=== PATIENT | female | born 1935 | race Caucasian/White ===

== ENCOUNTER 2016-09-22 16:46 | Emergency (ER) | payer MEDICARE, OTHER ==
--- NOTE | 2016-09-22 17:52 | ER Document Report ---
ED Medical Screen (RME) - General Chief Complaint: Palpitations Stated Complaint: BLOOD PRESSURE PROBLEM Time Seen by Provider: 09/22/16 17:46 Mode of Arrival: Wheelchair Information source: Patient TRAVEL OUTSIDE OF THE [place] IN LAST 30 DAYS: No - HPI Patient complains to provider of: LEG SWELLING, CRAMPING, PALPITATIONS Onset: Yesterday Onset/Duration: Gradual Quality of pain: Dull, Fullness Severity: Moderate Associated Symptoms: Leg swelling, Weakness, Other - PALPITATIONS. denies: Chest pain Exacerbated by: Movement Relieved by: Remaining still Similar symptoms previously: No Recently seen / treated by doctor: No - Related Data Smoking: Non-smoker Frequency of alcohol use: None Drug Abuse: None Allergies/Adverse Reactions: cephalexin monohydrate [From [facility]] Allergy (Verified 09/22/16 16:58) Past Medical History - General Information source: Patient - Social History Cigarette use (# per day): No Chew tobacco use (# tins/day): No Frequency of alcohol use: None Drug Abuse: None Lives with: Family Family history: None - Past Medical History Cardiac Medical History: Reports: Hx Hypercholesterolemia, Hx Hypertension, Hx Peripheral Vascular Disease - Prior carotid endarterectomy Denies: Hx Heart Attack, Hx Heart Murmur Pulmonary Medical History: Reports: Hx Pneumonia Denies: Hx Asthma Neurological Medical History: Reports: Hx Cerebrovascular Accident. Denies: Hx Seizures Endocrine Medical History: Reports: None Renal/ Medical History: Reports: None. Denies: Hx Peritoneal Dialysis GI Medical History: Reports: None. Denies: Hx Hepatitis, Hx Hiatal Hernia, Hx Ulcer Psychiatric Medical History: Reports: None Infectious Medical History: Denies: Hx Hepatitis Past Surgical History: Reports: Hx Appendectomy, Hx Hysterectomy, Hx Tubal Ligation. Denies: Hx Mastectomy, Hx Open Heart Surgery, Hx Pacemaker - Immunizations Hx Diphtheria, Pertussis, Tetanus Vaccination: No Review of Systems - Review of Systems Constitutional: See HPI EENT: No symptoms reported Cardiovascular: See HPI Respiratory: See HPI Gastrointestinal: No symptoms reported Genitourinary: No symptoms reported Female Genitourinary: Post menopausal Musculoskeletal: No symptoms reported Skin: No symptoms reported Neurological/Psychological: No symptoms reported Physical Exam - Vital signs Vitals: Temp Pulse Resp BP Pulse Ox 98.2 F 68 16 126/52 H 97 09/22/16 16:58 09/22/16 16:58 07/16/17 16:58 09/22/16 16:58 09/22/16 16:58 Interpretation: Hypotensive. No: Tachycardic, Hypoxic, Tachypneic - General General appearance: Appears well, Alert In distress: None - Respiratory Respiratory status: No respiratory distress - Cardiovascular Rhythm: Regular - Extremities General upper extremity: Normal inspection General lower extremity: Tender - LEFT, Edema - BILAT., MORE LEFT. No: Normal inspection Course - Vital Signs Vital signs: Temp Pulse Resp BP Pulse Ox 98.2 F 68 16 126/52 H 97 09/22/16 16:58 09/22/16 16:58 09/22/16 16:58 09/22/16 16:58 09/22/16 16:58
[2016-09-22 18:12] LABS: ABSOLUTE BASOPHILS # (AUTO) 0.1 10^3/uL (0.0-0.2); ABSOLUTE EOSINOPHILS # (AUTO) 0.5 10^3/uL (0.0-0.6); ABSOLUTE MONOCYTES (AUTO) 0.7 10^3/uL (0.1-1.4); ABSOLUTE NEUT (AUTO) 6.1 10^3/uL (1.7-8.2); BASOPHILS % (AUTO) 0.7 % (0-2); EOSINOPHILS % (AUTO) 6.4 % (0-6); HEMATOCRIT 36.1 % (36.0-47.0); HEMOGLOBIN 11.5 g/dL (12.0-15.5); HGB HCT DIFFERENCE -1.6; LYMPHOCYTES % (AUTO) 11.6 % (13-45); MEAN CORPUSCULAR HEMOGLOBIN 28.6 pg (27.0-33.4); MEAN CORPUSCULAR HGB CONC 31.9 g/dL (32.0-36.0); MEAN CORPUSCULAR VOLUME 90 fl (80-97); MONOCYTES % (AUTO) 8.1 % (3-13); RED BLOOD COUNT 4.01 10^6/uL (3.72-5.28); RED CELL DISTRIBUTION WIDTH 12.8 % (11.5-14.0); SEGMENTED NEUTROPHILS % (AUTO) 73.2 % (42-78); WHITE BLOOD COUNT 8.4 10^3/uL (4.0-10.5)
[2016-09-22 18:30] LABS: ALANINE AMINOTRANSFERASE 31 U/L (9-52); ALBUMIN 3.9 g/dL (3.5-5.0); ALKALINE PHOSPHATASE 88 U/L (38-126); ANION GAP 9 (5-19); ASPARTATE AMINO TRANSFERASE 29 U/L (14-36); BILIRUBIN,DIRECT 0.2 mg/dL (0.0-0.4); BILIRUBIN,TOTAL 0.5 mg/dL (0.2-1.3); BLOOD UREA NITROGEN 22 mg/dL (7-20); CALCIUM 9.4 mg/dL (8.4-10.2); CARBON DIOXIDE 27 mmol/L (22-30); CHLORIDE 103 mmol/L (98-107); CREATINE KINASE 348 U/L (30-135); CREATININE RESULT 1.11 mg/dL (0.52-1.25); GLUCOSE 109 mg/dL (75-110); POTASSIUM 5.4 mmol/L (3.6-5.0); PROTHROMBIN TIME 12.9 SEC (11.4-15.4); SODIUM 139.4 mmol/L (137-145)
[2016-09-22 18:42] LABS: CREATINE KINASE MB 2.25 ng/mL (<4.55); TROPONIN I 0.021 ng/mL
--- NOTE | 2016-09-22 18:42 | ER Document Report ---
ED General - General Chief Complaint: Palpitations Stated Complaint: BLOOD PRESSURE PROBLEM Time Seen by Provider: 09/22/16 17:46 Mode of Arrival: Wheelchair Notes: Patient is an 81-year-old female presents with multiple concerns. She complains of a chronic concern of diffuse muscle spasm slightly worse today although not present at this time. Does describe it is impacting all areas of her extremities as being a cramping, moderate to severe pain. Nothing improves or worsens his pain. She has not seen a primary care doctor regarding that concern. She also reports 2 days of left foot and distal left lower extremity pain and swelling. No history of DVT or pulmonary embolus. Touching area or walking on it worsens the pain. Nothing improves the pain. She also notes that her palpitations possibly 30 minutes prior to arrival has since resolved. She denies any associated chest pain or shortness of breath. Denies any pleuritic pain. TRAVEL OUTSIDE OF THE [place] IN LAST 30 DAYS: No - Related Data Allergies/Adverse Reactions: No Known Allergies Allergy (Unverified 09/22/16 21:46) Past Medical History - General Information source: Patient - Social History Smoking Status: Never Smoker Cigarette use (# per day): No Chew tobacco use (# tins/day): No Frequency of alcohol use: None Drug Abuse: None Lives with: Family Family History: CAD - Past Medical History Cardiac Medical History: Reports: Hx Hypercholesterolemia, Hx Hypertension, Hx Peripheral Vascular Disease - Prior carotid endarterectomy Denies: Hx Heart Attack, Hx Heart Murmur Pulmonary Medical History: Reports: Hx Pneumonia Denies: Hx Asthma Neurological Medical History: Reports: Hx Cerebrovascular Accident. Denies: Hx Seizures Endocrine Medical History: Reports: None Renal/ Medical History: Reports: None. Denies: Hx Peritoneal Dialysis GI Medical History: Reports: None. Denies: Hx Hepatitis, Hx Hiatal Hernia, Hx Ulcer Psychiatric Medical History: Reports: None Infectious Medical History: Denies: Hx Hepatitis Past Surgical History: Reports: Hx Appendectomy, Hx Hysterectomy, Hx Tubal Ligation. Denies: Hx Mastectomy, Hx Open Heart Surgery, Hx Pacemaker - Immunizations Hx Diphtheria, Pertussis, Tetanus Vaccination: No Review of Systems - Review of Systems Notes: Constitutional: Negative for fever. HENT: Negative for sore throat. Eyes: Negative for visual changes. Cardiovascular: Negative for chest pain. Positive for palpitations now resolved Respiratory: Negative for shortness of breath. Gastrointestinal: Negative for abdominal pain, vomiting or diarrhea. Genitourinary: Negative for dysuria. Musculoskeletal: Positive for left foot pain Skin: Negative for rash. Neurological: Negative for headaches, weakness or numbness. 10 point ROS negative except as marked above and in HPI. Physical Exam - Vital signs Vitals: Temp Pulse Resp BP Pulse Ox 98.2 F 68 16 126/52 H 97 09/22/16 16:58 09/22/16 16:58 09/22/16 16:58 09/22/16 16:58 09/22/16 16:58 Interpretation: Normal Notes: PHYSICAL EXAMINATION: GENERAL: Well-appearing, well-nourished and in no acute distress. HEAD: Atraumatic, normocephalic. EYES: Pupils equal round and reactive to light, extraocular movements intact, sclera anicteric, conjunctiva are normal. ENT: nares patent, oropharynx clear without exudates. Moist mucous membranes. NECK: Normal range of motion, supple without lymphadenopathy LUNGS: Breath sounds clear to auscultation bilaterally and equal. No wheezes rales or rhonchi. HEART: Regular rate and rhythm, 4/6 systolic ejection murmur ABDOMEN: Soft, nontender, normoactive bowel sounds. No guarding, no rebound. No masses appreciated. EXTREMITIES: Normal range of motion, mild swelling and edema to the left dorsal foot with associated erythema extending to the distal one fourth of the tibial surface NEUROLOGICAL: No focal neurological deficits. Moves all extremities spontaneously and on command. PSYCH: Normal mood, normal affect. SKIN: Warm, Dry, normal turgor, no rashes or lesions noted. Course - Re-evaluation Re-evalutation: 09/22/16 18:38 Patient presents with multiple complaints: 1. An episode of palpitations: Patient reports an episode of palpitations approximately 45 minutes prior to arrival. At that time her daughter did take a set of vitals and the heart rate was noted to be 75 making a ventricular tachycardia, atrial fibrillation with rapid ventricular response, supraventricular tachycardia highly improbable. It is possible the patient had a sensation of palpitations without actually having a tachycardia. It is also possible that she had an episode of atrial fibrillation without associated tachycardia. Her EKG however is completely normal. She denies any associated chest pain or shortness of breath and a troponin is unremarkable. I do not believe that this episode of palpitations requires any further workup at this time given his nonspecific nature and absence of symptoms at this time. 2.Left lower extremity pain and swelling: Primary concern based on exam is a possible DVT as patient does have plethora, mild edema and pain primarily to the distal left lower extremity. An alternative diagnostic consideration would be a cellulitis as there is erythema overlying the tibial plateau surface and patient does have multiple scabbed areas which put her at risk for possible bacterial infiltration of subcutaneous tissue. Will obtain a venous Doppler study and if this is unremarkable plan to treat empirically as a cellulitis. 3. Muscle spasms: These have been chronic for the past several years but mildly worse today. Patient did not have any of these symptoms at this time. This is a nonspecific complaint in patient's laboratories did not demonstrate any significant dehydration, hypokalemia or hypomagnesia. No evidence of rhabdomyolysis based on the normal creatinine kinase. I have encouraged her to follow-up with her primary care doctor about these recurrent spasms. 09/22/16 21:48 Venous Doppler study unremarkable without evidence of a DVT. The remainder patient's laboratories are noted to be unremarkable. She was started on cephalexin for a left lower extremity cellulitis as well as coverage of a possible urinary tract infection. Patient is comfortable with plan and states she feels much improved. At this time will discharge with return precautions and follow-up recommendations. Verbal discharge instructions given a the bedside and opportunity for questions given. Medication warnings reviewed. Patient is in agreement with this plan and has verbalized understanding of return precautions and the need for primary care follow-up in the next 24-72 hours. - Vital Signs Vital signs: Temp Pulse Resp BP Pulse Ox 98.2 F 68 17 131/55 H 96 09/22/16 16:58 09/22/16 16:58 09/22/16 22:01 09/22/16 22:01 09/22/16 22:01 - Laboratory Result Diagrams: 09/22/16 17:50 09/22/16 17:50 Laboratory results interpreted by me: 09/22/16 09/22/16 09/22/16 17:50 17:50 17:50 Hgb 11.5 L MCHC 31.9 L Lymphocytes % 11.6 L Eosinophils % 6.4 H Potassium 5.4 H BUN 22 H Est GFR ( Amer) 57 L Est GFR (Non-Af Amer) 47 L Magnesium 2.5 H Creatine Kinase 348 H Urine Protein Ur Leukocyte Esterase 09/22/16 19:17 Hgb MCHC Lymphocytes % Eosinophils % Potassium BUN Est GFR ( Amer) Est GFR (Non-Af Amer) Magnesium Creatine Kinase Urine Protein 30 H Ur Leukocyte Esterase MODERATE H - Diagnostic Test Radiology reviewed: Reports reviewed - EKG Interpretation by Me Additional EKG results interpreted by me: 09/22/16 18:42 Normal sinus rhythm. Rate 70. No ST elevations or depressions. QTC is 458. Discharge - Discharge Clinical Impression: Palpitations, Left leg cellulitis Condition: Good Disposition: HOME, SELF-CARE Additional Instructions: The rash is likely due to infection of your skin. You need to take the antibiotics as prescribed. Do not stop even if the rash goes away until you have completed all the antibiotics. The area of redness was traced out here in the emergency department with a marking pen. You need to return to emergency department if the redness spreads outside of this area by more than 2 cm in any direction. You should also return if you develop fevers with temperature greater than 101, persistent vomiting, worsening pain, or have any other symptoms that are concerning to you. Prescriptions: Cephalexin Monohydrate [Keflex 500 mg Capsule] 500 mg PO QID #28 capsule Referrals: CHARBEL CAMACHO MD [Primary Care Provider] - Follow up in 3-5 days
[2016-09-22 18:47] LABS: ADD ON TESTING BLD IN LAB ACKNOWLEDGE
[2016-09-22 19:03] LABS: MAGNESIUM 2.5 mg/dL (1.6-2.3)
[2016-09-22 19:31] LABS: APPEARANCE,URINE CLEAR; BILIRUBIN,URINE NEGATIVE (NEGATIVE); GLUCOSE, URINE NEGATIVE (NEGATIVE); KETONES,URINE NEGATIVE (NEGATIVE); LEUKOCYTE ESTERASE,URINE MODERATE (NEGATIVE); NITRITE,URINE NEGATIVE (NEGATIVE); PROTEIN,URINE 30 mg/dL (NEGATIVE); UROBILINOGEN,URINE NEGATIVE mg/dL (<2.0)
[2016-09-22] MEDS ORDERED: NITROFURANTOIN MONOHYD/M-CRYST 100 MG CAPSULE PO ONE (20:18)
[2016-09-22] MEDS ORDERED: CEPHALEXIN 500 MG CAPSULE PO ONE (21:47)
--- NOTE | 2016-09-22 21:53 | EKG REPORT ---
SEVERITY:- ABNORMAL ECG - SINUS RHYTHM PROBABLE ANTEROSEPTAL INFARCT, OLD : Confirmed by: Carlos Enrique Maldonado MD 22-Sep-2016 21:53:11
[2016-09-22 22:09] VITALS: BP 131/55
--- NOTE | 2016-09-23 15:43 | XCELERA REPORT ---
[address] [address] Lower Extremity Venous Evaluation Name: LOUANN ROACH Age: 81 yrs Gender: Female : 1935 Patient Status: Emergency Patient Location: ER Study Date: 09/22/2016 08:28 PM Procedure: Color flow and duplex imaging bilaterally of the veins of the lower extremities as well as the Common Femoral veins. Reason For Study: LEG EDEMA, PALPITATIONS, CRAMPING Ordering Physician: FRANKY GRIFFITH Performed By: Juan Zeng Right Sided Venous Evaluation Normal vessel filling wall to wall, compression and augmentation as well as Colour flow down to the infrageniculate veins. Left Sided Venous Evaluation Normal vessel filling wall to wall, compression and augmentation as well as Colour flow down to the infrageniculate veins. Interpretation Summary No duplex evidence of DVT or obstruction in the bilateral lower extremities. : FRANKY GRIFFITH [place]
== END 2016-09-22 22:16 | disposition home or self-care (01) ==
LOC: ER 16:46
DX: R00.2 Palpitations (principal); L03.116 Cellulitis of left lower limb; M62.838 Other muscle spasm
CPT/HCPCS: 93005; 99285; 36415; 87086; 82553; 82550; 83735; 85025; 85610; 87088; 80053; 81001; 84484; 93970 ×2; 93010; A9270 ×2; J8499

== ENCOUNTER 2017-03-15 19:10 | Inpatient (IN) | payer MEDICARE, OTHER ==
--- NOTE | 2017-03-15 19:32 | ER Document Report ---
ED Medical Screen (RME) - General Chief Complaint: Altered Mental Status Stated Complaint: URINARY PROBLEMS Time Seen by Provider: 03/15/17 19:22 Notes: This letter has power of attorney law clerk over this demented lady who does live by herself. Daughter reports that she had trouble getting in touch with her on , called a neighbor to check in on her. She was found to be a little more confused than normal. The daughter drove up from [place] where she found the patient with a low-grade temperature and gave her Tylenol. She also reported the patient was breathing through her mouth probably due to nasal congestion. She did seem more disoriented than usual. The orientation tends to come and go. She also seemed to have vision loss or does not recognize people who are in front of her and that also seems to come and go. The daughter decided today to bring her to the emergency room due to the ongoing symptoms. The patient is alert, oriented to person and family. She does seem a little confused and repeatedly says that she is 36 and wants to know if I am that old. Then she will laugh about this. Daughter reports that this is not normal for her, that she is normally able to live by herself and take care of herself reasonably well. I have greeted and performed a rapid initial assessment of this patient. A comprehensive ED assessment and evaluation of the patient, analysis of test results and completion of the medical decision making process will be conducted by additional ED providers. TRAVEL OUTSIDE OF THE [place] IN LAST 30 DAYS: No - Related Data Allergies/Adverse Reactions: No Known Allergies Allergy (Verified 03/15/17 19:11) Past Medical History - Social History Family history: None - Past Medical History Cardiac Medical History: Reports: Hx Hypercholesterolemia, Hx Hypertension, Hx Peripheral Vascular Disease - Prior carotid endarterectomy Denies: Hx Heart Attack, Hx Heart Murmur Pulmonary Medical History: Reports: Hx Pneumonia Denies: Hx Asthma Neurological Medical History: Reports: Hx Cerebrovascular Accident. Denies: Hx Seizures Renal/ Medical History: Denies: Hx Peritoneal Dialysis GI Medical History: Denies: Hx Hepatitis, Hx Hiatal Hernia, Hx Ulcer Infectious Medical History: Denies: Hx Hepatitis Past Surgical History: Reports: Hx Appendectomy, Hx Hysterectomy, Hx Tubal Ligation. Denies: Hx Mastectomy, Hx Open Heart Surgery, Hx Pacemaker - Immunizations Hx Diphtheria, Pertussis, Tetanus Vaccination: No
[2017-03-15 20:15] LABS: ABSOLUTE BASOPHILS # (AUTO) 0.1 10^3/uL (0.0-0.2); ABSOLUTE EOSINOPHILS # (AUTO) 0.7 10^3/uL (0.0-0.6); ABSOLUTE LYMPHOCYTES (AUTO) 1.3 10^3/uL (0.5-4.7); ABSOLUTE MONOCYTES (AUTO) 0.6 10^3/uL (0.1-1.4); ABSOLUTE NEUT (AUTO) 4.7 10^3/uL (1.7-8.2); BASOPHILS % (AUTO) 0.9 % (0-2); HEMATOCRIT 37.2 % (36.0-47.0); HEMOGLOBIN 12.5 g/dL (12.0-15.5); MEAN CORPUSCULAR HEMOGLOBIN 29.5 pg (27.0-33.4); MEAN CORPUSCULAR HGB CONC 33.5 g/dL (32.0-36.0); MEAN CORPUSCULAR VOLUME 88 fl (80-97); MONOCYTES % (AUTO) 8.3 % (3-13); PLATELET COUNT 216 10^3/uL (150-450); RED BLOOD COUNT 4.22 10^6/uL (3.72-5.28); RED CELL DISTRIBUTION WIDTH 12.6 % (11.5-14.0); SEGMENTED NEUTROPHILS % (AUTO) 63.8 % (42-78); TOTAL CELLS COUNTED % (AUTO) 100 %; WHITE BLOOD COUNT 7.3 10^3/uL (4.0-10.5)
[2017-03-15 20:36] LABS: ALANINE AMINOTRANSFERASE 23 U/L (9-52); ALBUMIN 4.7 g/dL (3.5-5.0); ALKALINE PHOSPHATASE 85 U/L (38-126); ANION GAP 12 (5-19); ASPARTATE AMINO TRANSFERASE 22 U/L (14-36); BILIRUBIN,DIRECT 0.2 mg/dL (0.0-0.4); BILIRUBIN,TOTAL 0.3 mg/dL (0.2-1.3); BLOOD UREA NITROGEN 22 mg/dL (7-20); CALCIUM 9.6 mg/dL (8.4-10.2); CARBON DIOXIDE 28 mmol/L (22-30); CHLORIDE 102 mmol/L (98-107); GLUCOSE 117 mg/dL (75-110); POTASSIUM 4.3 mmol/L (3.6-5.0); SODIUM 142.4 mmol/L (137-145); TOTAL PROTEIN 7.7 g/dL (6.3-8.2)
--- NOTE | 2017-03-15 20:39 | ER Document Report ---
ED General - General Chief Complaint: Altered Mental Status Stated Complaint: URINARY PROBLEMS Time Seen by Provider: 03/15/17 19:22 Notes: Patient is an 81-year-old female who comes emergency department for chief complaint of increased confusion for the past 3-4 days, daughter is a patient and states that patient has had more disorientation than usual, seems to come and go but is much worse than usual. She states that she had a temperature of 99.8 and give her Tylenol a couple of days ago, she has had some mild nasal congestion, she also seemed to either have trouble seeing or trouble recognizing people. Daughter states she ran into a few de leon while walking. Patient has also been repeating bizarre statements over and over. No vomiting, patient still eating and drinking, she is still take her medications. Patient normally lives by herself. Past medical history of hypertension, hyperlipidemia , TIA, hysterectomy, appendectomy, on full aspirin daily. TRAVEL OUTSIDE OF THE [place] IN LAST 30 DAYS: No - Related Data Allergies/Adverse Reactions: No Known Allergies Allergy (Verified 03/15/17 19:11) Home Medications: Current Home Medications Donepezil HCl 5 mg PO DAILY 03/16/17 [History] Mecobal/Levomefolat Ca/B6 Phos [l-[id number] Tablet] 1 each PO DAILY [History] Nifedipine [Nifedipine ER] 30 mg PO DAILY 03/16/17 [History] Quetiapine Fumarate 25 mg PO QHS 03/16/17 [History] Past Medical History - General Information source: Patient - Social History Smoking Status: Never Smoker Chew tobacco use (# tins/day): No Frequency of alcohol use: None Drug Abuse: None Lives with: Family Family History: CAD Patient has suicidal ideation: No Patient has homicidal ideation: No - Past Medical History Cardiac Medical History: Reports: Hx Hypercholesterolemia, Hx Hypertension, Hx Peripheral Vascular Disease - Prior carotid endarterectomy Denies: Hx Heart Attack, Hx Heart Murmur Pulmonary Medical History: Reports: Hx Pneumonia Denies: Hx Asthma Neurological Medical History: Reports: Hx Cerebrovascular Accident. Denies: Hx Seizures Renal/ Medical History: Denies: Hx Peritoneal Dialysis GI Medical History: Denies: Hx Hepatitis, Hx Hiatal Hernia, Hx Ulcer Infectious Medical History: Denies: Hx Hepatitis Past Surgical History: Reports: Hx Appendectomy, Hx Hysterectomy, Hx Tubal Ligation. Denies: Hx Mastectomy, Hx Open Heart Surgery, Hx Pacemaker - Immunizations Hx Diphtheria, Pertussis, Tetanus Vaccination: No Review of Systems - Review of Systems Constitutional: No symptoms reported EENT: No symptoms reported Cardiovascular: No symptoms reported Respiratory: No symptoms reported Gastrointestinal: No symptoms reported Genitourinary: No symptoms reported Female Genitourinary: No symptoms reported Musculoskeletal: No symptoms reported Skin: No symptoms reported Hematologic/Lymphatic: No symptoms reported Neurological/Psychological: See HPI Physical Exam - Vital signs Vitals: Temp Pulse Resp BP Pulse Ox 98.1 F 71 16 194/61 H 99 03/15/17 19:20 03/15/17 19:20 03/15/17 19:20 03/15/17 19:20 03/15/17 19:20 Interpretation: Normal - General General appearance: Appears well, Alert In distress: None - Smiling, alert, well-appearing - HEENT Head: Normocephalic, Atraumatic Eyes: Normal Conjunctiva: Normal Extraocular movements intact: Yes Eyelashes: Normal Pupils: PERRL - Respiratory Respiratory status: No respiratory distress Chest status: Nontender Breath sounds: Normal. No: Decreased air movement, Wheezing Chest palpation: Normal - Cardiovascular Rhythm: Regular Heart sounds: Normal auscultation Murmur: No - Abdominal Inspection: Normal Distension: No distension Bowel sounds: Normal Tenderness: Nontender. No: Tender Organomegaly: No organomegaly - Back Back: Normal, Nontender - Extremities General upper extremity: Normal inspection, Nontender, Normal color, Normal ROM , Normal temperature General lower extremity: Normal inspection, Nontender, Normal color, Normal ROM , Normal temperature, Normal weight bearing. No: Cynthia's sign - Neurological Neuro grossly intact: Yes Cognition: Confused - Cooperative with instructions but confused about history or symptoms Orientation: Disoriented to place, Disoriented to time, Disoriented to events. No: Disoriented to person [place] Coma Scale Eye Opening: Spontaneous Jessica Coma Scale Verbal: Confused [place] Coma Scale Motor: Obeys Commands Jessica Coma Scale Total: 14 Speech: Normal. No: Dysarthria, Expressive aphasia Cranial nerves: Normal. No: Facial palsy, Forehead sparing Cerebellar coordination: No: Gait ataxia Motor strength normal: LUE, RUE, LLE, RLE Sensory: Normal - Psychological Associated symptoms: Normal affect, Normal mood - Skin Skin Temperature: Warm Skin Moisture: Dry Skin Color: Normal Course - Re-evaluation Re-evalutation: Patient performs normal EOMs, normal strength bilaterally, no obvious neurological deficits other than acting confused. Patient slightly uncooperative and appears nervous that we will find something wrong with her. She denies any visual deficits. When asked if she can see in different quadrants she repeats "I can see you, I can see you, I can see you". She does keep telling me she is a 3 x 7. CBC, chemistry, urinalysis are all unremarkable. CAT scan of the head performed, shows subacute occipital ischemic stroke. This does match patient's difficulty seeing, running into de leon, etc. EKG showing sinus rhythm with no T-wave inversions or ST segment changes in consecutive leads. Left axis deviation. Chest x-ray and remaining workup generally unremarkable. Discussed with family, will discuss for admission because of stroke to risk stratify and further evaluate. Family and patient state full agreement with this plan. Discussed with Dr. Maurer, internal medicine, he will admit to [facility]. - Vital Signs Vital signs: Temp Pulse Resp BP Pulse Ox 98.5 F 64 20 146/54 H 93 03/16/17 05:04 03/16/17 05:04 03/16/17 05:04 03/16/17 05:04 03/16/17 05:04 - Laboratory Result Diagrams: 03/15/17 20:02 03/15/17 20:02 Laboratory results interpreted by me: 03/15/17 03/15/17 20:02 20:02 Eosinophils % 9.0 H Absolute Eosinophils 0.7 H BUN 22 H Glucose 117 H Discharge - Discharge Clinical Impression: Visual field defects, Confusion CVA (cerebral vascular accident) Qualifiers: CVA mechanism: unspecified Qualified Code(s): I63.9 - Cerebral infarction, unspecified Condition: Stable Disposition: ADMITTED INPATIENT Admitting Provider: Hospitalist Unit Admitted: [facility]
--- NOTE | 2017-03-15 21:03 | RADIOLOGY REPORT (SQ) ---
EXAM DESCRIPTION: CT HEAD WITHOUT COMPLETED DATE/TIME: 03/15/2017 8:46 pm REASON FOR STUDY: confusion, hypertension COMPARISON: 01/14/2016 TECHNIQUE: Axial images acquired through the brain without intravenous contrast. Images reviewed wi th bone, brain and subdural windows. Images stored on PACS. All CT scanners at this facility use dose modulation, iterative reconstruction, and/or weight based d osing when appropriate to reduce radiation dose to as low as reasonably achievable (ALARA). [facility]: Dose Right [facility]: CareDose [facility]: Dose Right [facility]: Teradose 4D [facility]: [employer] RADIATION DOSE: CT Rad equipment meets quality standard of care and radiation dose reduction techniq ues were employed. CTDIvol: 64.6 mGy. DLP: 1163 mGy-cm. mGy. LIMITATIONS: None. FINDINGS: VENTRICLES: Prominent. CEREBRUM: New geographic focus of white matter edema involving the left occipital lobe. Mild mass ef fect upon the adjacent left lateral ventricle occipital horn and left occipital penaloza matter. No mass es. No hemorrhage. No midline shift. Background of low density foci throughout the white matter mo st likely due to chronic micro-vascular ischemic change. CEREBELLUM: No masses. No hemorrhage. No alteration of density. No evidence for acute infarction. EXTRAAXIAL SPACES: Mild age-related involutional change. No fluid collections. No masses. ORBITS AND GLOBE: No intra- or extraconal masses. Normal contour of globe without masses. CALVARIUM: No fracture. PARANASAL SINUSES: No fluid or mucosal thickening. SOFT TISSUES: No mass or hematoma. OTHER: No other significant finding. IMPRESSION: Acute versus subacute ischemic injury involving the left occipital lobe. This is seen o n a background of chronic microvascular ischemia and age-related involutional changes. EVIDENCE OF ACUTE STROKE: YES. 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 Category of Critical Result: Acute versus subacute ischemic injury TECHNICAL DOCUMENTATION: JOB ID: [id number] Quality ID # [id number]: Final reports with documentation of one or more dose reduction techniques (e.g., Au tomated exposure control, adjustment of the mA and/or kV according to patient size, use of iterative reconstruction technique) 2010 [employer]- All Rights Reserved
[2017-03-15 21:31] LABS: CREATINE KINASE MB 1.49 ng/mL (<4.55); TROPONIN I 0.015 ng/mL
[2017-03-15 21:33] LABS: APPEARANCE,URINE CLEAR; BILIRUBIN,URINE NEGATIVE (NEGATIVE); COLOR,URINE YELLOW; GLUCOSE, URINE NEGATIVE (NEGATIVE); KETONES,URINE NEGATIVE (NEGATIVE); LEUKOCYTE ESTERASE,URINE NEGATIVE (NEGATIVE); NITRITE,URINE NEGATIVE (NEGATIVE); PROTEIN,URINE NEGATIVE (NEGATIVE); URINE SPECIFIC GRAVITY 1.018; UROBILINOGEN,URINE NEGATIVE mg/dL (<2.0)
--- NOTE | 2017-03-15 22:12 | RADIOLOGY REPORT (SQ) ---
EXAM DESCRIPTION: CHEST SINGLE VIEW COMPLETED DATE/TIME: 03/15/2017 9:44 pm REASON FOR STUDY: post CVA COMPARISON: 01/14/2016 EXAM PARAMETERS: NUMBER OF VIEWS: One view. TECHNIQUE: Single frontal radiographic view of the chest acquired. RADIATION DOSE: NA LIMITATIONS: None. FINDINGS: LUNGS AND PLEURA: No opacities, masses or pneumothorax. No pleural effusion. MEDIASTINUM AND HILAR STRUCTURES: No masses. Contour normal. HEART AND VASCULAR STRUCTURES: Heart normal in size. Normal vasculature. BONES: No acute findings. HARDWARE: None in the chest. OTHER: No other significant finding. IMPRESSION: NO ACUTE RADIOGRAPHIC FINDING IN THE CHEST. TECHNICAL DOCUMENTATION: JOB ID: [id number] [employer]- All Rights Reserved
[2017-03-15] MEDS ORDERED: ATORVASTATIN CALCIUM 80 MG TABLET PO ONE (22:23)
[2017-03-16] MEDS ORDERED: INFLUENZA ADLT QUAD (36MOS+) 2017-18 VAC 0.5 ML SYR IM PRN (02:42)
[2017-03-16 02:52] LABS: CREATINE KINASE MB 1.25 ng/mL (<4.55); TROPONIN I 0.017 ng/mL
[2017-03-16 03:16] LABS: CHOLESTEROL 214.91 mg/dL (0-200); CREATINE KINASE 100 U/L (30-135); TRIGLYCERIDES 72 mg/dL (<150)
[2017-03-16 03:27] LABS: DIRECT LDL 111 mg/dL (<100)
--- NOTE | 2017-03-16 06:21 | PDOC H&P ---
History of Present Illness Admission Date/PCP: 03/15/17 23:45 CHARBEL CAMACHO MD Patient complains of: Delirium and vision change History of Present Illness: LOUANN ROACH is a 81 year old female with a past medical history of TIA, vascular and Alzheimer's dementia who presents after 3 days of difficulty with site, ambulation, exceptional confusion and delirium with delusions. Patient is socially appropriate but oriented 1 only and is accompanied by her daughter who is healthcare power of environmental science technician. In the emergency room she is found to have CT evidence of acute left CREDIT RISK ANALYST infarct with bradycardia and referred to the hospitalist for admission. Patient was noted to be on Aricept and nifedipine with a heart rate of 50-60. Past Medical History Cardiac Medical History: Reports: Hyperlipidema, Hypertension, Peripheral Vascular Disease - Prior carotid endarterectomy Denies: Myocardial Infarction, Heart Murmur Pulmonary Medical History: Reports: Pneumonia Denies: Asthma Neurological Medical History: Denies: Seizures GI Medical History: Denies: Hepatitis, Hiatal Hernia Hematology: Denies: Anemia, Sickle Cell Disease Past Surgical History Past Surgical History: Reports: Appendectomy, Hysterectomy, Tubal Ligation Denies: Amputation, Mastectomy, Pacemaker Social History Lives with: Alone Smoking Status: Never Smoker Frequency of Alcohol Use: None Hx Recreational Drug Use: No Drugs: None Hx Prescription Drug Abuse: No - Advance Directive Resuscitation Status: Full Code Family History Family History: CAD, CVA Parental Family History Reviewed: Yes Children Family History Reviewed: Yes Sibling(s) Family History Reviewed.: Yes Medication/Allergy Home Medications: Aspirin [Ecotrin 325 mg EC Tablet] 325 mg PO DAILY #30 tabec 01/15/16 Lisinopril [Prinivil] 20 mg PO DAILY #30 tablet 01/15/16 Simvastatin [Zocor 10 mg Tablet] 20 mg PO QHS #30 tablet 01/15/16 Tolterodine Tartrate [Detrol La] 4 mg PO DAILY #30 cap.sr.24h 01/15/16 Cephalexin Monohydrate [Keflex 500 mg Capsule] 500 mg PO QID #28 capsule Donepezil HCl 5 mg PO DAILY 03/16/17 Mecobal/Levomefolat Ca/B6 Phos [n-[id number]-B12 Tablet] 1 each PO DAILY Nifedipine [Nifedipine ER] 30 mg PO DAILY 03/16/17 Quetiapine Fumarate 25 mg PO QHS 03/16/17 Allergies/Adverse Reactions: No Known Allergies Allergy (Verified 03/15/17 19:11) Review of Systems Constitutional: ABSENT: chills, fever(s), headache(s), weight gain, weight loss Eyes: PRESENT: as per HPI, visual disturbances Ears: ABSENT: hearing changes Cardiovascular: ABSENT: chest pain, dyspnea on exertion, edema, orthropnea, palpitations Respiratory: ABSENT: cough, hemoptysis Gastrointestinal: ABSENT: abdominal pain, constipation, diarrhea, hematemesis, hematochezia, nausea, vomiting Genitourinary: ABSENT: dysuria, hematuria Musculoskeletal: ABSENT: joint swelling Integumentary: ABSENT: rash, wounds Neurological: PRESENT: abnormal speech, confusion, lack of coordination, memory loss. ABSENT: abnormal gait, convulsions, dizziness, focal weakness, syncope Psychiatric: PRESENT: anxiety, other - Delirium with delusions of persecution. ABSENT: depression, homidical ideation, suicidal ideation Endocrine: ABSENT: cold intolerance, heat intolerance, polydipsia, polyuria Hematologic/Lymphatic: ABSENT: easy bleeding, easy bruising Physical Exam Vital Signs: Temp Pulse Resp BP Pulse Ox 98.5 F 64 20 146/54 H 93 03/16/17 05:04 03/16/17 05:04 03/16/17 05:04 03/16/17 05:04 03/16/17 05:04 Intake & Output 03/14/17 03/15/17 03/16/17 11:59 11:59 11:59 Weight 64.7 kg General appearance: PRESENT: no acute distress, cooperative, well-developed, well-nourished Head exam: PRESENT: atraumatic, normocephalic Eye exam: PRESENT: conjunctiva pink, EOMI, PERRLA. ABSENT: scleral icterus Ear exam: PRESENT: normal external ear exam Mouth exam: PRESENT: moist, tongue midline Neck exam: ABSENT: carotid bruit, JVD, lymphadenopathy, thyromegaly Respiratory exam: PRESENT: clear to auscultation sara. ABSENT: rales, rhonchi, wheezes Cardiovascular exam: PRESENT: bradycardia, +S1, +S2, systolic murmur Pulses: PRESENT: normal dorsalis pedis pul Vascular exam: PRESENT: normal capillary refill GI/Abdominal exam: PRESENT: normal bowel sounds, soft. ABSENT: distended, guarding, mass, organolmegaly, rebound, tenderness Rectal exam: PRESENT: deferred Extremities exam: PRESENT: full ROM. ABSENT: calf tenderness, clubbing, pedal edema Neurological exam: PRESENT: alert, altered, awake, oriented to person, CN II- XII grossly intact. ABSENT: oriented to place, oriented to time, oriented to situation, normal gait Psychiatric exam: PRESENT: agitated, unusual affect Skin exam: PRESENT: dry, intact, warm. ABSENT: cyanosis, rash Results Laboratory Results: 03/16/17 02:17 Triglycerides 72 Cholesterol 214.91 H LDL Cholesterol Direct 111 H VLDL Cholesterol 14.0 HDL Cholesterol 71 03/16/17 03/16/17 02:17 02:17 Creatine Kinase 100 CK-MB (CK-2) 1.25 Troponin I 0.017 Impressions: Head CT 03/15/17 20:37 IMPRESSION: Acute versus subacute ischemic injury involving the left occipital lobe. This is seen on a background of chronic microvascular ischemia and age- related involutional changes. EVIDENCE OF ACUTE STROKE: YES. LEFT CREDIT RISK ANALYST Chest X-Ray 03/15/17 21:02 IMPRESSION: NO ACUTE RADIOGRAPHIC FINDING IN THE CHEST. Assessment & Plan - Diagnosis (1) CVA (cerebral vascular accident) Qualifiers: CVA mechanism: unspecified Qualified Code(s): I63.9 - Cerebral infarction, unspecified Is this a current diagnosis for this admission?: Yes Plan: Acute left CREDIT RISK ANALYST infarct with visual changes. CVA care set, supportive care, Lipitor and aspirin. Holding nifedipine and Aricept for bradycardia. Follow- up MRI, carotid and 2D echo (2) Sinus bradycardia Is this a current diagnosis for this admission?: Yes Plan: Concern for nifedipine and Aricept because subsequently held to need telemetry monitoring follow-up 2D echo. (3) Dementia Is this a current diagnosis for this admission?: Yes Plan: Patient clearly no longer independent in ADLs to maintain independent living. Physical therapy consult, discharge planning consulted for rehab and placement. - Time Time Spent: 50 to 70 Minutes - Inpatient Certification Medical Necessity: Need Close Monitoring Due to Risk of Patient Decompensation
[2017-03-16 09:10] LABS: CREATINE KINASE MB 0.88 ng/mL (<4.55); TROPONIN I 0.018 ng/mL
[2017-03-16] MEDS ORDERED: ASPIRIN 325 MG TABLET, ENT COATED PO SCH (10:00)
--- NOTE | 2017-03-16 10:23 | PDOC PROGRESS REPORT ---
Subjective Progress Note for:: 03/16/17 Subjective:: Patient denies any complaints. She is demented Reason For Visit: CVA HTN Physical Exam Vital Signs: Temp Pulse Resp BP Pulse Ox 98.7 F 52 L 19 148/49 H 98 03/16/17 08:37 03/16/17 08:37 03/16/17 08:37 03/16/17 08:37 03/16/17 08:37 Intake & Output 03/15/17 03/16/17 03/17/17 06:59 06:59 06:59 Intake Total 0 Output Total 500 Balance -500 Weight 64.7 kg General appearance: PRESENT: no acute distress Eye exam: PRESENT: conjunctiva pink. ABSENT: scleral icterus Mouth exam: PRESENT: moist, tongue midline Neck exam: ABSENT: JVD Respiratory exam: PRESENT: clear to auscultation sara. ABSENT: rales, rhonchi, wheezes Cardiovascular exam: PRESENT: RRR. ABSENT: diastolic murmur, rubs, systolic murmur GI/Abdominal exam: PRESENT: normal bowel sounds, soft. ABSENT: distended, guarding, mass, organolmegaly, rebound, tenderness Extremities exam: ABSENT: calf tenderness, clubbing, pedal edema Neurological exam: PRESENT: alert, awake, oriented to person, oriented to place. ABSENT: oriented to time, oriented to situation, CN II-XII grossly intact - Patient has right lower visual field loss. Psychiatric exam: PRESENT: appropriate affect Skin exam: PRESENT: dry, intact, warm. ABSENT: cyanosis, rash Results Laboratory Results: 03/16/17 02:17 Triglycerides 72 Cholesterol 214.91 H LDL Cholesterol Direct 111 H VLDL Cholesterol 14.0 HDL Cholesterol 71 03/16/17 03/16/17 03/16/17 02:17 02:17 08:03 Creatine Kinase 100 CK-MB (CK-2) 1.25 0.88 Troponin I 0.017 0.018 Impressions: Head CT 03/15/17 20:37 IMPRESSION: Acute versus subacute ischemic injury involving the left occipital lobe. This is seen on a background of chronic microvascular ischemia and age- related involutional changes. EVIDENCE OF ACUTE STROKE: YES. 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 Assessment & Plan - Diagnosis (1) Visual field defects Is this a current diagnosis for this admission?: Yes Plan: Exam on patient is difficult given her dementia and difficulty following instructions. She appears to have some right lower visual field defect. She has had an acute CVA involving the right posterior circulation. Will get an MRI to further delineate. (2) CVA (cerebral vascular accident) Qualifiers: CVA mechanism: unspecified Qualified Code(s): I63.9 - Cerebral infarction, unspecified Is this a current diagnosis for this admission?: Yes Plan: Patient has had a CVA of the posterior circulation. Will get an MRI, carotid Doppler. Will switch from aspirin to Aggrenox. (3) Hyperlipidemia Is this a current diagnosis for this admission?: Yes Plan: Zocor was switched to Lipitor. (4) Dementia Is this a current diagnosis for this admission?: Yes (5) Hypertension Is this a current diagnosis for this admission?: Yes (6) Peripheral vascular disease Is this a current diagnosis for this admission?: Yes - Time Time Spent with patient: 25-34 minutes - Inpatient Certification Medical Necessity: Need Close Monitoring Due to Risk of Patient Decompensation - Plan Summary Plan Summary: Patient will need rehab.
[2017-03-16] MEDS ORDERED: DOCUSATE SODIUM 100 MG CAPSULE ONE (17:12)
[2017-03-16] MEDS ORDERED: TOLTERODINE TARTRATE 1 MG TABLET ONE (17:13)
[2017-03-16] MEDS: DOCUSATE SODIUM 100 MG CAPSULE PO SCH ×2 (17:14→17:24)
[2017-03-16] MEDS: TOLTERODINE TARTRATE 1 MG TABLET PO SCH ×2 (17:15→20:32)
--- NOTE | 2017-03-16 17:28 | EKG REPORT ---
SEVERITY:- ABNORMAL ECG - SINUS RHYTHM LEFT VENTRICULAR HYPERTROPHY ANTERIOR Q WAVES, POSSIBLY DUE TO LVH : Confirmed by: Remberto Rodriguez 16-Mar-2017 12:12:09
--- NOTE | 2017-03-16 19:25 | RADIOLOGY REPORT (SQ) ---
EXAM DESCRIPTION: MRI HEAD WITHOUT COMPLETED DATE/TIME: 03/16/2017 7:15 pm REASON FOR STUDY: acute neurologic syndrome COMPARISON: 2016 TECHNIQUE: Multiplanar imaging includes non-contrasted T1, T2, FLAIR, and diffusion with ADC map seq uences. Heme sensitive sequence. Images stored on PACS. LIMITATIONS: None. FINDINGS: ANATOMY: No anomalies. Normal vascular flow voids. Pituitary fossa normal. CSF SPACES: Atrophy induced prominence of ventricles and CSF spaces. CEREBRUM: High signal intensity lesions scattered throughout the white matter on FLAIR imaging with d istribution suggesting micro-vascular ischemic changes. No evidence of hemorrhage, mass, or extraaxi al fluid collection. POSTERIOR FOSSA: No signal alteration. No hemorrhage. No edema, masses or mass effect. Internal jerome tory canals, cerebello-pontine angles, mastoids normal. DIFFUSION IMAGING: There is a large area of restricted diffusion in the left occipital lobe. Acute i nfarction. Additional small punctate area in the parietal white matter on the left. ORBITS: No masses. Globes normal. PARANASAL SINUSES: No fluid levels. Mucosa normal. OTHER: No other significant finding. IMPRESSION: Large area of acute infarction in the left occipital lobe with a tiny area in the left p arietal lobe. Underlying atrophy and microvascular ischemia. 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
[2017-03-16] MEDS: ASPIRIN/DIPYRIDAMOLE 25-200 MG 1 CAP.SR CPMP.12HR PO SCH (20:33)
[2017-03-16] MEDS ORDERED: QUETIAPINE FUMARATE 25 MG TABLET PO SCH (22:00)
[2017-03-16] MEDS ORDERED: ATORVASTATIN CALCIUM 80 MG TABLET PO SCH (22:00)
[2017-03-16] MEDS ORDERED: GABAPENTIN 300 MG CAPSULE PO SCH (22:00)
[2017-03-16] MEDS ORDERED: LORAZEPAM INJ 2 MG/1 ML VIAL ONE (22:06)
[2017-03-16] MEDS ORDERED: HYDRALAZINE HCL INJ/PF 20 MG/1 ML SDV ONE (22:07)
[2017-03-16] MEDS ORDERED: LORAZEPAM INJ 2 MG/1 ML VIAL IV ONE (22:15)
[2017-03-16] MEDS ORDERED: HYDRALAZINE HCL INJ/PF 20 MG/1 ML SDV IV ONE (22:15)
--- NOTE | 2017-03-16 22:35 | RADIOLOGY REPORT (SQ) ---
EXAM DESCRIPTION: CAROTID DOPPLER COMPLETED DATE/TIME: 03/16/2017 10:25 pm REASON FOR STUDY: acute neurologic syndrome COMPARISON: 01/15/2016 TECHNIQUE: Grayscale ultrasound, Doppler velocity and spectra, and color Doppler images acquired of the extra-cranial carotid and vertebral arteries. Images stored on PACS. LIMITATIONS: None. FINDINGS: RIGHT CAROTID CCA Velocities: Within normal limits. ICA Velocities Peak systolic 0.94 m/s. End diastolic 0.20 m/s. Proximal ICA/CCA peak systolic ratio 0.9. Spectra normal. No significant plaque. Patent endarterectomy. LEFT CAROTID CCA Velocities: Within normal limits. ICA Velocities Peak systolic 1.12 m/s. End diastolic 0.26 m/s. Proximal ICA/CCA peak systolic ratio 1.0. Spectra normal. No significant plaque. VERTEBRAL ARTERIES: Antegrade flow. Normal waveforms. SUBCLAVIAN ARTERIES: No finding. OTHER: No other significant finding. IMPRESSION: NO HEMODYNAMICALLY SIGNIFICANT STENOSIS. COMMENT: Quality ID #[id number]: Velocity criteria are extrapolated from the diameter data as defined by t he Society of Radiologists in Ultrasound Consensus Conference. Radiology 2003: 229; 340-346. TECHNICAL DOCUMENTATION: JOB ID: [id number] [employer]- All Rights Reserved
[2017-03-16 22:49] LABS: CREATINE KINASE MB 0.72 ng/mL (<4.55)
[2017-03-16 22:54] LABS: TROPONIN I < 0.012 ng/mL
[2017-03-17 05:18] LABS: ABSOLUTE BASOPHILS # (AUTO) 0.1 10^3/uL (0.0-0.2); ABSOLUTE EOSINOPHILS # (AUTO) 0.3 10^3/uL (0.0-0.6); ABSOLUTE LYMPHOCYTES (AUTO) 1.3 10^3/uL (0.5-4.7); ABSOLUTE MONOCYTES (AUTO) 0.6 10^3/uL (0.1-1.4); ABSOLUTE NEUT (AUTO) 4.9 10^3/uL (1.7-8.2); BASOPHILS % (AUTO) 0.7 % (0-2); EOSINOPHILS % (AUTO) 3.8 % (0-6); HEMOGLOBIN 11.2 g/dL (12.0-15.5); LYMPHOCYTES % (AUTO) 18.4 % (13-45); MEAN CORPUSCULAR HEMOGLOBIN 29.3 pg (27.0-33.4); MEAN CORPUSCULAR HGB CONC 33.9 g/dL (32.0-36.0); MEAN CORPUSCULAR VOLUME 86 fl (80-97); MONOCYTES % (AUTO) 8.8 % (3-13); PLATELET COUNT 200 10^3/uL (150-450); RED BLOOD COUNT 3.82 10^6/uL (3.72-5.28); RED CELL DISTRIBUTION WIDTH 12.6 % (11.5-14.0); SEGMENTED NEUTROPHILS % (AUTO) 68.3 % (42-78); TOTAL CELLS COUNTED % (AUTO) 100 %; WHITE BLOOD COUNT 7.2 10^3/uL (4.0-10.5)
[2017-03-17 05:43] LABS: ANION GAP 9 (5-19); BLOOD UREA NITROGEN 21 mg/dL (7-20); CALCIUM 9.3 mg/dL (8.4-10.2); CARBON DIOXIDE 26 mmol/L (22-30); CHLORIDE 104 mmol/L (98-107); GLUCOSE 111 mg/dL (75-110); POTASSIUM 4.2 mmol/L (3.6-5.0); SODIUM 139.2 mmol/L (137-145)
[2017-03-17] MEDS ORDERED: (PENDING PHARMACY ID) (Lisinopril [Prinivil] 20 MG) PO SCH (10:00)
[2017-03-17] MEDS ORDERED: MECOBAL PO SCH (10:00)
[2017-03-17] MEDS ORDERED: B6 PHOS PO SCH (10:00)
[2017-03-17] MEDS ORDERED: (PENDING PHARMACY ID) (Nifedipine [Nifedipine Er] 30 MG) PO SCH (10:00)
[2017-03-17] MEDS ORDERED: LEVOMEFOLAT CA PO SCH (10:00)
--- NOTE | 2017-03-17 11:27 | PDOC PROGRESS REPORT ---
Subjective Progress Note for:: 03/17/17 Subjective:: Patient was agitated last night. She is an 81-year-old female with a history of moderate dementia who presented with a 3 day history of worsening confusion and some visual difficulties. The patient was found to have an acute left occipital CVA. Patient's carotid Dopplers were unremarkable. The patient had been living alone prior to this presentation. The family would like her to go to rehab and possibly assisted living after that. Reason For Visit: CVA HTN Physical Exam Vital Signs: Temp Pulse Resp BP Pulse Ox 97.7 F 51 L 16 127/55 H 97 03/17/17 07:15 03/17/17 07:15 03/17/17 07:15 03/17/17 07:15 03/17/17 07:15 Intake & Output 03/16/17 03/17/17 03/18/17 06:59 06:59 06:59 Intake Total 3 5 Output Total 500 0 Balance -497 5 Weight 64.7 kg 66.1 kg General appearance: PRESENT: no acute distress Eye exam: PRESENT: conjunctiva pink. ABSENT: scleral icterus Neck exam: ABSENT: JVD Respiratory exam: PRESENT: clear to auscultation sara. ABSENT: rales, rhonchi, wheezes Cardiovascular exam: PRESENT: RRR. ABSENT: diastolic murmur, rubs, systolic murmur GI/Abdominal exam: PRESENT: normal bowel sounds, soft. ABSENT: distended, guarding, mass, organolmegaly, rebound, tenderness Extremities exam: ABSENT: calf tenderness, clubbing, pedal edema Neurological exam: PRESENT: awake, oriented to person, oriented to place, other - Patient will not cooperate for a full visual exam.. ABSENT: oriented to time , oriented to situation Psychiatric exam: PRESENT: agitated Skin exam: PRESENT: dry, intact, warm. ABSENT: cyanosis, rash Results Laboratory Results: 03/17/17 04:50 03/17/17 04:50 03/17/17 03/17/17 04:50 04:50 WBC 7.2 RBC 3.82 Hgb 11.2 L Hct 33.0 L MCV 86 MCH 29.3 MCHC 33.9 RDW 12.6 Plt Count 200 Seg Neutrophils % 68.3 Lymphocytes % 18.4 Monocytes % 8.8 Eosinophils % 3.8 Basophils % 0.7 Absolute Neutrophils 4.9 Absolute Lymphocytes 1.3 Absolute Monocytes 0.6 Absolute Eosinophils 0.3 Absolute Basophils 0.1 Sodium 139.2 Potassium 4.2 Chloride 104 Carbon Dioxide 26 Anion Gap 9 BUN 21 H Creatinine 1.01 Est GFR ( Amer) > 60 Est GFR (Non-Af Amer) 52 L Glucose 111 H Calcium 9.3 03/16/17 03/16/17 03/16/17 02:17 02:17 08:03 Creatine Kinase 100 CK-MB (CK-2) 1.25 0.88 Troponin I 0.017 0.018 03/16/17 22:00 Creatine Kinase CK-MB (CK-2) 0.72 Troponin I < 0.012 Impressions: Head CT 03/15/17 20:37 IMPRESSION: Acute versus subacute ischemic injury involving the left occipital lobe. This is seen on a background of chronic microvascular ischemia and age- related involutional changes. EVIDENCE OF ACUTE STROKE: YES. 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 Carotid Doppler Study 03/16/17 10:05 IMPRESSION: NO HEMODYNAMICALLY SIGNIFICANT STENOSIS. Head MRI 03/16/17 10:05 IMPRESSION: Large area of acute infarction in the left occipital lobe with a tiny area in the left parietal lobe. Underlying atrophy and microvascular ischemia. EVIDENCE OF ACUTE STROKE: Yes LEFT SUPERVISOR PRODUCTION Assessment & Plan - Diagnosis (1) Visual field defects Is this a current diagnosis for this admission?: Yes Plan: Exam on patient is difficult given her dementia and difficulty following instructions. She appears to have some right lower visual field defect. She has had an acute CVA involving the right posterior circulation. MRI confirms this. Carotid Dopplers were unremarkable. Will get an echocardiogram. (2) CVA (cerebral vascular accident) Qualifiers: CVA mechanism: unspecified Qualified Code(s): I63.9 - Cerebral infarction, unspecified Is this a current diagnosis for this admission?: Yes Plan: Patient has had a CVA of the posterior circulation. Will obtain echocardiogram. Patient was changed from aspirin to Aggrenox. (3) Hyperlipidemia Is this a current diagnosis for this admission?: Yes Plan: Zocor was switched to Lipitor. (4) Dementia Is this a current diagnosis for this admission?: Yes (5) Hypertension Is this a current diagnosis for this admission?: Yes (6) Peripheral vascular disease Is this a current diagnosis for this admission?: Yes - Time Time Spent with patient: 25-34 minutes - Inpatient Certification Medical Necessity: Need for Neurological Checks - Plan Summary Plan Summary: The patient's family request that she go to rehab to help her learn to deal with her visual defects and findings.
[2017-03-17] MEDS ORDERED: HALOPERIDOL 2 MG TABLET PO PRN (13:50)
[2017-03-17] MEDS: DOCUSATE SODIUM 100 MG CAPSULE PO SCH ×2 (14:08→18:26)
[2017-03-17] MEDS: TOLTERODINE TARTRATE 1 MG TABLET PO SCH ×2 (14:08→20:28)
[2017-03-17] MEDS: LISINOPRIL 10 MG TABLET PO SCH (14:08)
[2017-03-17] MEDS: NIFEDIPINE 30 MG TAB.ER.24 PO SCH (14:08)
[2017-03-17] MEDS: DONEPEZIL HCL 5 MG TABLET PO SCH (14:08)
[2017-03-17] MEDS: ASPIRIN/DIPYRIDAMOLE 25-200 MG 1 CAP.SR CPMP.12HR PO SCH ×2 (14:08→20:29)
[2017-03-17] MEDS: GABAPENTIN 300 MG CAPSULE PO SCH (20:27)
[2017-03-17] MEDS: QUETIAPINE FUMARATE 25 MG TABLET PO SCH (20:28)
[2017-03-17] MEDS: ATORVASTATIN CALCIUM 80 MG TABLET PO SCH (20:29)
[2017-03-17] MEDS ORDERED: DIAZEPAM 5 MG TABLET ONE (22:02)
--- NOTE | 2017-03-17 22:13 | XCELERA REPORT ---
[address] [address] Transthoracic Echocardiogram Report Name: LOUANN ROACH Age: 81 yrs Gender: Female : 1935 Patient Status: Inpatient Patient Location: [address] [place], [place] [address] Study Date: 03/17/2017 09:53 AM Height: 67 in Weight: 146 lb BSA: 1.8 m2 Procedure: A two-dimensional transthoracic echocardiogram with color flow and Doppler was performed. Study Quality: Fair. Reason For Study: LV Function, size, wall thickness,Valve Function / CVA History: LV Function, size, wall thickness,Valve Function / CVA. Ordering Physician: FRANKY RICE Performed By: Esperanza Mendoza Interpretation Summary There is no obvious cardiac source of embolus noted on this transthoracic echocardiogram. Follow-up with a ALBER is suggested if cardiac source is still suspected. The left ventricle is normal in size. There is normal left ventricular wall thickness. LV EF is . THAN 65% Left ventricular systolic function is normal. Doppler measurements suggest normal left ventricular diastolic function The left ventricular wall motion is normal. There is no thrombus. The right ventricle is not well visualized secondary to technical limitations The right atrium is normal. The left atrial size is normal. Calcified mitral apparatus causing mitral stenosis. There is no evidence of mitral valve prolapse. There is no aortic valvular vegetation. There is mild aortic stenosis There is a peak gradient of 27 mm of Hg. There is a mild amount of aortic regurgitation There is no tricuspid stenosis. There is a trace amount of tricuspid regurgitation Right ventricular systolic pressure is normal. rvsp IS 26 MM OF hG , WTH ra MEAN OF 5. There is no pulmonic valvular stenosis. There is a trace amount of pulmonic regurgitation There is no pericardial effusion. There is no obvious cardiac source of embolus noted on this transthoracic echocardiogram. Follow-up with a ALBER is suggested if cardiac source is still suspected MMode/2D Measurements & Calculations RVDd: 3.2 cm LVIDd: 4.1 cm FS: 47.2 % Ao root diam: 2.8 cm IVSd: 1.1 cm LVIDs: 2.2 cm EDV(Teich): 74.8 ml LVPWd: 1.1 cm ESV(Teich): 15.7 ml Ao root area: 6.2 cm2 EF(Teich): 79.0 % LA dimension: 3.9 cm LVOT diam: 2.2 cm LVOT area: 3.9 cm2 Doppler Measurements & Calculations MV E max luana: MV P1/2t max luana: Ao V2 max: AI max luana: 109.6 cm/sec 110.6 cm/sec 263.8 cm/sec 347.5 cm/sec MV A max luana: MV P1/2t: 97.8 msec Ao max PG: AI max P.7 cm/sec MVA(P1/2t): 2.2 cm2 27.9 mmHg 48.3 mmHg MV E/A: 1.1 MV dec slope: Ao V2 mean: AI dec slope: 331.1 cm/sec2 189.3 cm/sec 211.8 cm/sec2 Ao mean PG: AI P1/2t: 16.5 mmHg 480.5 msec Ao V2 VTI: 66.0 cm ZENON(I,D): 1.4 cm2 ZENON(V,D): 1.3 cm2 LV V1 max PG: SV(LVOT): 94.4 ml PA V2 max: PI end-d luana: 2.9 mmHg 89.3 cm/sec 97.7 cm/sec LV V1 mean PG: PA max P.5 mmHg 3.2 mmHg LV V1 max: 85.5 cm/sec LV V1 mean: 56.8 cm/sec LV V1 VTI: 24.0 cm LV dP/dt: 1136 mmHg/s TR max luana: 228.0 cm/sec TR max P.8 mmHg Left Ventricle The left ventricle is normal in size. There is normal left ventricular wall thickness. LV EF is . THAN 65%. Left ventricular systolic function is normal. Doppler measurements suggest normal left ventricular diastolic function. The left ventricular wall motion is normal. There is no thrombus. Right Ventricle The right ventricle is not well visualized secondary to technical limitations. Atria The right atrium is normal. The left atrial size is normal. Mitral Valve Calcified mitral apparatus causing mitral stenosis. There is no evidence of mitral valve prolapse. There is no vegetation seen on the mitral valve. There is mild mitral stenosis. There is a mild amount of mitral regurgitation. Aortic Valve There is no aortic valvular vegetation. There is mild aortic stenosis. There is a peak gradient of 27 mm of Hg. There is a mild amount of aortic regurgitation. Tricuspid Valve There is no tricuspid stenosis. There is a trace amount of tricuspid regurgitation. Right ventricular systolic pressure is normal. rvsp IS 26 MM OF hG , WTH ra MEAN OF 5. Pulmonic Valve There is no pulmonic valvular stenosis. There is a trace amount of pulmonic regurgitation. Great Vessels The aortic root is not well visualized but is probably normal size. Effusions There is no pericardial effusion. : FRANKY RICE > Tamiko Gama
[2017-03-17] MEDS ORDERED: DIAZEPAM 5 MG TABLET PO ONE (22:15)
[2017-03-18 05:11] LABS: ABSOLUTE BASOPHILS # (AUTO) 0.1 10^3/uL (0.0-0.2); ABSOLUTE EOSINOPHILS # (AUTO) 0.5 10^3/uL (0.0-0.6); ABSOLUTE LYMPHOCYTES (AUTO) 1.6 10^3/uL (0.5-4.7); ABSOLUTE MONOCYTES (AUTO) 0.7 10^3/uL (0.1-1.4); ABSOLUTE NEUT (AUTO) 4.1 10^3/uL (1.7-8.2); BASOPHILS % (AUTO) 0.8 % (0-2); EOSINOPHILS % (AUTO) 6.8 % (0-6); HEMATOCRIT 33.9 % (36.0-47.0); HEMOGLOBIN 11.1 g/dL (12.0-15.5); LYMPHOCYTES % (AUTO) 22.7 % (13-45); MEAN CORPUSCULAR HEMOGLOBIN 28.7 pg (27.0-33.4); MEAN CORPUSCULAR HGB CONC 32.8 g/dL (32.0-36.0); MEAN CORPUSCULAR VOLUME 87 fl (80-97); MONOCYTES % (AUTO) 9.7 % (3-13); PLATELET COUNT 220 10^3/uL (150-450); RED BLOOD COUNT 3.88 10^6/uL (3.72-5.28); RED CELL DISTRIBUTION WIDTH 12.8 % (11.5-14.0); TOTAL CELLS COUNTED % (AUTO) 100 %; WHITE BLOOD COUNT 6.9 10^3/uL (4.0-10.5)
[2017-03-18 05:33] LABS: ANION GAP 8 (5-19); BLOOD UREA NITROGEN 28 mg/dL (7-20); CALCIUM 9.2 mg/dL (8.4-10.2); CARBON DIOXIDE 27 mmol/L (22-30); CHLORIDE 105 mmol/L (98-107); GLUCOSE 96 mg/dL (75-110); POTASSIUM 4.2 mmol/L (3.6-5.0); SODIUM 140.1 mmol/L (137-145)
[2017-03-18] MEDS: TOLTERODINE TARTRATE 1 MG TABLET PO SCH ×2 (09:44→20:15)
[2017-03-18] MEDS: NIFEDIPINE 30 MG TAB.ER.24 PO SCH (09:44)
[2017-03-18] MEDS: ASPIRIN/DIPYRIDAMOLE 25-200 MG 1 CAP.SR CPMP.12HR PO SCH ×2 (09:44→20:11)
[2017-03-18] MEDS: DOCUSATE SODIUM 100 MG CAPSULE PO SCH ×2 (09:45→18:22)
[2017-03-18] MEDS: DONEPEZIL HCL 5 MG TABLET PO SCH (09:45)
[2017-03-18] MEDS: LISINOPRIL 10 MG TABLET PO SCH (09:45)
--- NOTE | 2017-03-18 17:12 | PDOC PROGRESS REPORT ---
Subjective Progress Note for:: 03/18/17 Subjective:: Was agitated overnight and had trouble sleeping, per daughter. Did not get relief with Haldol. Did sleep after receiving pain meds. This AM, noted to be a little more groggy however able to answer questions appropriately. Had left eye swelling, likely from scratching her eye. Also has joint pain which is new. Denies fevers, chills, CP, SOB. Reason For Visit: CVA HTN Physical Exam Vital Signs: Temp Pulse Resp BP Pulse Ox 97.8 F 76 16 99/39 L 99 03/18/17 12:06 03/18/17 12:06 03/18/17 12:06 03/18/17 12:06 03/18/17 12:06 Intake & Output 03/17/17 03/18/17 03/19/17 06:59 06:59 06:59 Intake Total 5 590 222 Output Total 0 0 Balance 5 590 222 Weight 66.1 kg 63.7 kg General appearance: PRESENT: no acute distress, cooperative Head exam: PRESENT: atraumatic, normocephalic Eye exam: PRESENT: other - mild infra-orbital swelling, left eye Mouth exam: PRESENT: moist Neck exam: ABSENT: JVD Respiratory exam: PRESENT: unlabored. ABSENT: wheezes Cardiovascular exam: PRESENT: RRR Vascular exam: PRESENT: normal capillary refill GI/Abdominal exam: PRESENT: normal bowel sounds, soft. ABSENT: distended Neurological exam: PRESENT: alert, awake, CN II-XII grossly intact Skin exam: PRESENT: dry Results Laboratory Results: 03/18/17 04:43 03/18/17 04:43 03/18/17 03/18/17 04:43 04:43 WBC 6.9 RBC 3.88 Hgb 11.1 L Hct 33.9 L MCV 87 MCH 28.7 MCHC 32.8 RDW 12.8 Plt Count 220 Seg Neutrophils % 60.0 Lymphocytes % 22.7 Monocytes % 9.7 Eosinophils % 6.8 H Basophils % 0.8 Absolute Neutrophils 4.1 Absolute Lymphocytes 1.6 Absolute Monocytes 0.7 Absolute Eosinophils 0.5 Absolute Basophils 0.1 Sodium 140.1 Potassium 4.2 Chloride 105 Carbon Dioxide 27 Anion Gap 8 BUN 28 H Creatinine 0.97 Est GFR ( Amer) > 60 Est GFR (Non-Af Amer) 55 L Glucose 96 Calcium 9.2 01/07/18 01/07/18 01/07/18 02:17 02:17 08:03 Creatine Kinase 100 CK-MB (CK-2) 1.25 0.88 Troponin I 0.017 0.018 03/16/17 22:00 Creatine Kinase CK-MB (CK-2) 0.72 Troponin I < 0.012 Impressions: Head CT 03/15/17 20:37 IMPRESSION: Acute versus subacute ischemic injury involving the left occipital lobe. This is seen on a background of chronic microvascular ischemia and age- related involutional changes. EVIDENCE OF ACUTE STROKE: YES. LEFT SMALL OFFSET PRINTER Chest X-Ray 03/15/17 21:02 IMPRESSION: NO ACUTE RADIOGRAPHIC FINDING IN THE CHEST. Carotid Doppler Study 03/16/17 10:05 IMPRESSION: NO HEMODYNAMICALLY SIGNIFICANT STENOSIS. Head MRI 03/16/17 10:05 IMPRESSION: Large area of acute infarction in the left occipital lobe with a tiny area in the left parietal lobe. Underlying atrophy and microvascular ischemia. EVIDENCE OF ACUTE STROKE: Yes LEFT SMALL OFFSET PRINTER Assessment & Plan - Diagnosis (1) CVA (cerebral vascular accident) Qualifiers: CVA mechanism: unspecified Qualified Code(s): I63.9 - Cerebral infarction, unspecified Is this a current diagnosis for this admission?: Yes Plan: Currently on high dose statin. Family requesting rehab for patient, which is reasonable. Social work assessing options (2) Dementia Qualifiers: Dementia type: Alzheimer's disease Is this a current diagnosis for this admission?: Yes Plan: Dementia unchanged, noted to sun-down at night - D/c-ed Haldol, ordered risperidone - Encourage family to keep normal sleep/wake cycle - Continue donepezil (3) Abnormal TSH Plan: Stable (4) Hypertension Is this a current diagnosis for this admission?: Yes Plan: Stable, continue current anti-hypertensive regimen - Time Time Spent with patient: 15-24 minutes Medications reviewed and adjusted accordingly: Yes Anticipated discharge: SNF Within: within 48 hours
[2017-03-18] MEDS: ACETAMINOPHEN 325 MG TABLET PO PRN (18:22)
[2017-03-18] MEDS: GABAPENTIN 300 MG CAPSULE PO SCH (20:11)
[2017-03-18] MEDS: QUETIAPINE FUMARATE 25 MG TABLET PO SCH (20:12)
[2017-03-18] MEDS: ATORVASTATIN CALCIUM 80 MG TABLET PO SCH (20:12)
[2017-03-18] MEDS: RISPERIDONE 0.25 MG TABLET PO PRN (20:12)
[2017-03-18] MEDS ORDERED: DIAZEPAM 5 MG TABLET PO SCH (22:00)
[2017-03-19] MEDS ORDERED: NORMAL SALINE 1000 ML 1,000 ML IV ONE ×2 (01:30→02:36)
[2017-03-19] MEDS ORDERED: NORMAL SALINE 1000 ML 2,000 ML IV ONE (02:37)
[2017-03-19 03:59] LABS: ABSOLUTE EOSINOPHILS # (AUTO) 0.3 10^3/uL (0.0-0.6); ABSOLUTE LYMPHOCYTES (AUTO) 0.9 10^3/uL (0.5-4.7); ABSOLUTE MONOCYTES (AUTO) 1.2 10^3/uL (0.1-1.4); ABSOLUTE NEUT (AUTO) 14.1 10^3/uL (1.7-8.2); BASOPHILS % (AUTO) 0.2 % (0-2); EOSINOPHILS % (AUTO) 2.1 % (0-6); HEMATOCRIT 35.2 % (36.0-47.0); HEMOGLOBIN 11.7 g/dL (12.0-15.5); LYMPHOCYTES % (AUTO) 5.5 % (13-45); MEAN CORPUSCULAR HEMOGLOBIN 29.2 pg (27.0-33.4); MEAN CORPUSCULAR HGB CONC 33.2 g/dL (32.0-36.0); MEAN CORPUSCULAR VOLUME 88 fl (80-97); MONOCYTES % (AUTO) 7.4 % (3-13); PLATELET COUNT 230 10^3/uL (150-450); RED BLOOD COUNT 4.01 10^6/uL (3.72-5.28); RED CELL DISTRIBUTION WIDTH 13.3 % (11.5-14.0); SEGMENTED NEUTROPHILS % (AUTO) 84.8 % (42-78); TOTAL CELLS COUNTED % (AUTO) 100 %
[2017-03-19 04:04] LABS: ALANINE AMINOTRANSFERASE 23 U/L (9-52); ALBUMIN 3.3 g/dL (3.5-5.0); ALKALINE PHOSPHATASE 70 U/L (38-126); ANION GAP 11 (5-19); ASPARTATE AMINO TRANSFERASE 20 U/L (14-36); BILIRUBIN,DIRECT 0.3 mg/dL (0.0-0.4); BILIRUBIN,TOTAL 0.5 mg/dL (0.2-1.3); BLOOD UREA NITROGEN 43 mg/dL (7-20); CALCIUM 9.2 mg/dL (8.4-10.2); CARBON DIOXIDE 22 mmol/L (22-30); CHLORIDE 110 mmol/L (98-107); GLUCOSE 131 mg/dL (75-110); MAGNESIUM 2.3 mg/dL (1.6-2.3); POTASSIUM 4.7 mmol/L (3.6-5.0); SODIUM 142.7 mmol/L (137-145); TOTAL PROTEIN 5.9 g/dL (6.3-8.2); WHITE BLOOD COUNT 16.6 10^3/uL (4.0-10.5)
[2017-03-19] MEDS: ACETAMINOPHEN 325 MG TABLET PO PRN ×2 (04:10→21:04)
[2017-03-19] MEDS: NORMAL SALINE 1000 ML 1,000 ML IV PRN (04:12)
--- NOTE | 2017-03-19 04:46 | RADIOLOGY REPORT (SQ) ---
EXAM DESCRIPTION: CT HEAD WITHOUT CLINICAL HISTORY: hypotension, mild bradyardia, large ocipital cva COMPARISON: 03/15/2027 TECHNIQUE: Axial CT of the head obtained from the skull apex to the skull base without contrast. FINDINGS: No acute intracranial hemorrhage identified. No midline shift or abnormal extra-axial fluid collection. The ventricular system and sulcal spaces are mildly enlarged compatible with mild cerebral atrophy. Confluent areas of hypodensity throughout the supratentorial white matter are nonspecific and may be related to chronic small vessel ischemic change. Hypodensity involving the left occipital region with mild effacement of the adjacent sulcal spaces. No evidence of downward herniation. The visualized paranasal sinuses and the mastoids are clear. No skull fracture identified. Visualized orbits and globes are unremarkable. Atherosclerotic calcification of the intracranial internal carotid arteries. DLP: 1162.97 mGy-cm IMPRESSION: 1. Redemonstrated region of subacute ischemic change in the left occipital lobe compatible left IDENTITY MANAGEMENT CONSULTANT distribution infarction with mild effacement of the adjacent sulcal spaces and no significant midline shift, hemorrhage, or downward herniation This exam was performed according to our departmental dose-optimization program, which includes automated exposure control, adjustment of the mA and/or kV according to patient size and/or use of iterative reconstruction technique.
--- NOTE | 2017-03-19 04:54 | RADIOLOGY REPORT (SQ) ---
EXAM DESCRIPTION: CHEST SINGLE VIEW CLINICAL HISTORY: ? aspiration pna COMPARISON: 03/15/2017 FINDINGS: Single frontal view of the chest. Tortuosity of thoracic aorta. Heart is not enlarged. Leads overlie the chest. Mild levoconvex scoliosis of the thoracic spine. No consolidation, pneumothorax, or pleural effusion. No displaced rib fractures identified. Upper abdominal soft tissues are unremarkable. IMPRESSION: 1. No acute pulmonary process identified.
[2017-03-19 06:03] LABS: APPEARANCE,URINE CLOUDY; BILIRUBIN,URINE NEGATIVE (NEGATIVE); COLOR,URINE AMBER; GLUCOSE, URINE NEGATIVE (NEGATIVE); KETONES,URINE NEGATIVE (NEGATIVE); LEUKOCYTE ESTERASE,URINE NEGATIVE (NEGATIVE); NITRITE,URINE NEGATIVE (NEGATIVE); PROTEIN,URINE 30 mg/dL (NEGATIVE); URINE SPECIFIC GRAVITY 1.019
[2017-03-19] MEDS: DOCUSATE SODIUM 100 MG CAPSULE PO SCH ×2 (10:39→17:16)
[2017-03-19] MEDS: ASPIRIN/DIPYRIDAMOLE 25-200 MG 1 CAP.SR CPMP.12HR PO SCH ×2 (11:23→20:47)
--- NOTE | 2017-03-19 12:58 | ST Inp Modified Barium Swallow ---
Medical Diagnosis - Medical Diagnoses Medical Diagnosis Description & ICD-10 Code(s): CVA ST Inpatient [facility] [place] - General Date: 03/19/17 - History History Obtained From: Other - EMR -: Medical - per EMR: TIA, vascular and Alzheimers dementia. Patient believed to have had another CVA while admitted in hospital. Medications: Medications Reviewed Allergies: No known allergies - Subjective Current Nutritional Means: PO Current PO Diet: Mechanical - cut Current Symptoms: other - physician identified risk of aspiration Pain: Patient reports, 0/5 - Objective Assessment: Upright, Left Lateral - Food Trials Food Trials Used: Thin liquids, Pureed, Regular The Patient: fed by ST, via cup, via spoon - Assessment Labial Function: Within Normal Limits Lingual Function: Within Normal Limits Mandibular Function: Within Normal Limits Dentition: Edentulous Laryngeal Function: Volitional Cough - WFL, Volitional Swallow - WFL - Pharyngeal Stage Initiation of Pharyngeal Stage: Delayed Reflex Delay Time (seconds): 6 - greatest delay time Decreased Laryngeal Elevation: No Reduced Velo-Pharyngeal Closure: no Reduced Pressure Generation: Yes - mild Reduced Tongue Base Retraction: No Pre-Swallowing Pooling in Valleculae: Mild Pre-Swallowing Pooling in Pyriforms: Significant - for all textures Reduced Thyro-Hyiod Approximation: No Reduced Epiglottic Excursion: No Reduced Pharyngeal Peristalsis: No Multiple Swallows With: Cleared w/ Liquid Assist Post Swallow Residuals in Valleculae: Moderate - for solid trial Post Swallow Residuals in Pyriforms: None Post Swallow Residuals: throughout pharynx Pahryngeal Stage Comments: Material swallowed was seen to travel to pyriform sinus very quickly, with little control of rate, swallow reflex seen up to 6 seconds after material entered pyriform sinus. No aspiration seen, possible penetration, but not definitive. Residue of solid trials seen in valleculae, but cleared with second swallow and with liquid wash. - Impression/Summary Tracheal Aspiration: no Compensatory Strategies: liquid wash Patient Presents With: Pharyngeal stage dysph., Mild-Moderate - although swallow timing is not within normal limits, safe swallowing skills seen for all trial textures. Risk of Aspiration: Mild Risk of Nutritional Compromise: WNL - Recommendations Solid Diet Recommendations: Mechanical Soft, Chopped Meat Liquid Diet Recommendations: Thin Strict Aspitarion Precautions: Yes Dysphagia Therapy with ORE STORAGE DRIER: No Recommended Techniques: Fully Upright During Meal, Small Bites and Sips, Alternate Bites/Sips - Time Total Time: 20 Total Timed Minutes: 20 Charge G Code? - - -: Yes [facility] Impairment Category - Rationale Based On Rationale Based On: Func. Asses. Tool Results - Swallowing Current G8996: CI 1-19% Impaired Goal G8997: CI 1-19% Impaired Discharge G8998: CI 1-19% Impaired
[2017-03-19 14:13] LABS: HEMOGLOBIN 10.4 g/dL (12.0-15.5); MEAN CORPUSCULAR HEMOGLOBIN 29.1 pg (27.0-33.4); MEAN CORPUSCULAR HGB CONC 33.6 g/dL (32.0-36.0); MEAN CORPUSCULAR VOLUME 87 fl (80-97); PLATELET COUNT 220 10^3/uL (150-450); RED BLOOD COUNT 3.57 10^6/uL (3.72-5.28); RED CELL DISTRIBUTION WIDTH 12.9 % (11.5-14.0); WHITE BLOOD COUNT 11.9 10^3/uL (4.0-10.5)
[2017-03-19 14:32] LABS: ANION GAP 10 (5-19); BLOOD UREA NITROGEN 44 mg/dL (7-20); CALCIUM 8.7 mg/dL (8.4-10.2); CARBON DIOXIDE 22 mmol/L (22-30); CHLORIDE 110 mmol/L (98-107); GLUCOSE 130 mg/dL (75-110); POTASSIUM 4.4 mmol/L (3.6-5.0); SODIUM 141.8 mmol/L (137-145)
--- NOTE | 2017-03-19 14:46 | PDOC PROGRESS REPORT ---
Subjective Progress Note for:: 03/19/17 Subjective:: Doing well yesterday evening, ambulating halls with daughter. In the evening, noted to be hypotensive with SBP in 70s. Also noted to have little/no urine output. Patient seems more tired/less responsive. evaluated by Dr. Glaser (night physician) who ordered labs, CT head, and chest ray. Labs were notable for increased WBC and elevated renal fx. Imaging was negative for acute process. Patient received IVF bolus followed by continuous fluid with improvement in BP. This AM doing OK. More awake. Daughter at bedside. Reason For Visit: CVA HTN Physical Exam Vital Signs: Temp Pulse Resp BP Pulse Ox 97.3 F 61 19 111/44 L 97 03/19/17 11:30 03/19/17 11:30 03/19/17 11:30 03/19/17 11:30 03/19/17 11:30 Intake & Output 03/18/17 03/19/17 03/20/17 06:59 06:59 06:59 Intake Total 590 2482 100 Output Total 0 150 100 Balance 590 2332 0 Weight 63.7 kg 67.5 kg General appearance: PRESENT: thin - In bed, difficult to understand, NAD, other Head exam: PRESENT: atraumatic, normocephalic Mouth exam: PRESENT: dry mucosa Respiratory exam: PRESENT: clear to auscultation sara. ABSENT: wheezes Cardiovascular exam: PRESENT: RRR. ABSENT: systolic murmur GI/Abdominal exam: PRESENT: soft. ABSENT: tenderness Neurological exam: PRESENT: awake, other - Answering some questions appropriately. Unable to perform detailed neuro exam. Psychiatric exam: PRESENT: appropriate affect Results Laboratory Results: 03/19/17 13:57 03/19/17 03/19/17 03/19/17 03:40 03:40 05:09 WBC 16.6 H D RBC 4.01 Hgb 11.7 L Hct 35.2 L MCV 88 MCH 29.2 MCHC 33.2 RDW 13.3 Plt Count 230 Seg Neutrophils % 84.8 H Lymphocytes % 5.5 L Monocytes % 7.4 Eosinophils % 2.1 Basophils % 0.2 Absolute Neutrophils 14.1 H Absolute Lymphocytes 0.9 Absolute Monocytes 1.2 Absolute Eosinophils 0.3 Absolute Basophils 0.0 Sodium 142.7 Potassium 4.7 Chloride 110 H Carbon Dioxide 22 Anion Gap 11 BUN 43 H Creatinine 2.20 H Est GFR ( Amer) 26 L Est GFR (Non-Af Amer) 21 L Glucose 131 H Calcium 9.2 Magnesium 2.3 Total Bilirubin 0.5 AST 20 ALT 23 Alkaline Phosphatase 70 Total Protein 5.9 L Albumin 3.3 L Urine Color SAIGE Urine Appearance CLOUDY Urine pH 5.0 Ur Specific [place] 1.019 Urine Protein 30 H Urine Glucose (UA) NEGATIVE Urine Ketones NEGATIVE Urine Blood NEGATIVE Urine Nitrite NEGATIVE Ur Leukocyte Esterase NEGATIVE Urine WBC (Auto) 2 Urine RBC (Auto) 4 03/19/17 13:57 WBC 11.9 H RBC 3.57 L Hgb 10.4 L Hct 31.0 L MCV 87 MCH 29.1 MCHC 33.6 RDW 12.9 Plt Count 220 Seg Neutrophils % Lymphocytes % Monocytes % Eosinophils % Basophils % Absolute Neutrophils Absolute Lymphocytes Absolute Monocytes Absolute Eosinophils Absolute Basophils Sodium Potassium Chloride Carbon Dioxide Anion Gap BUN Creatinine Est GFR ( Amer) Est GFR (Non-Af Amer) Glucose Calcium Magnesium Total Bilirubin AST ALT Alkaline Phosphatase Total Protein Albumin Urine Color Urine Appearance Urine pH Ur Specific [place] Urine Protein Urine Glucose (UA) Urine Ketones Urine Blood Urine Nitrite Ur Leukocyte Esterase Urine WBC (Auto) Urine RBC (Auto) 03/16/17 03/16/17 03/16/17 02:17 02:17 08:03 Creatine Kinase 100 CK-MB (CK-2) 1.25 0.88 Troponin I 0.017 0.018 03/16/17 22:00 Creatine Kinase CK-MB (CK-2) 0.72 Troponin I < 0.012 Impressions: Carotid Doppler Study 03/16/17 10:05 IMPRESSION: NO HEMODYNAMICALLY SIGNIFICANT STENOSIS. Head MRI 03/16/17 10:05 IMPRESSION: Large area of acute infarction in the left occipital lobe with a tiny area in the left parietal lobe. Underlying atrophy and microvascular ischemia. EVIDENCE OF ACUTE STROKE: Yes LEFT WAREHOUSE WORKER 2ND SHIFT Head CT 03/19/17 00:00 IMPRESSION: 1. Redemonstrated region of subacute ischemic change in the left occipital lobe compatible left WAREHOUSE WORKER 2ND SHIFT distribution infarction with mild effacement of the adjacent sulcal spaces and no significant midline shift, hemorrhage, or downward herniation This exam was performed according to our departmental dose-optimization program, which includes automated exposure control, adjustment of the mA and/or kV according to patient size and/or use of iterative reconstruction technique. Chest X-Ray 03/19/17 03:29 IMPRESSION: 1. No acute pulmonary process identified. Assessment & Plan - Diagnosis (1) CVA (cerebral vascular accident) Qualifiers: CVA mechanism: occlusion Precerebral and cerebral artery: posterior cerebral artery Laterality of affected vessel: right Qualified Code(s): I63.531 - Cerebral infarction due to unspecified occlusion or stenosis of right posterior cerebral artery Is this a current diagnosis for this admission?: Yes Plan: Neurological exam s difficult given her dementia and difficulty following instructions. Continues to have some right lower visual field defect. Imaging consistent with acute CVA involving the right posterior circulation. MRI confirms this. Carotid Dopplers were unremarkable. TTE with preserved EF and no thrombus. Repeat CTH overnight 03/18 re-demonstrated known CVA, no acute CVA. (2) Dementia Qualifiers: Dementia type: Alzheimer's disease Is this a current diagnosis for this admission?: Yes Plan: Known dementia. Daughter concerned that dementia has worsened over last few weeks. Long conversation with patient's daughter today about current mental status. - Donepezil discontinued overnight. (3) Abnormal TSH Plan: Free T4 wnl, no changes to current regimen (4) Hypertension Is this a current diagnosis for this admission?: Yes Plan: Noted to be hypotensive overnight. Home anti-hypertensives on hold currently. Will continue with IV hydration for now and closely monitor blood pressure. (5) Confusion and disorientation Plan: Likely multifactorial due to dementia, prolonged hospitalization, and sedating medications - Med list reviewed with particular attention to sedating medications. Neurontin and valium discontinued on 03/19 - Continue seroquel qHS and risperidal PRN - Time Time Spent with patient: 25-34 minutes Within: within 48 hours, Other - Working with social work for placement.
[2017-03-19] MEDS: RISPERIDONE 0.25 MG TABLET PO PRN (17:16)
[2017-03-19] MEDS ORDERED: BACITRACIN ZINC OINTMENT 15 GM TP ONE (19:30)
[2017-03-19] MEDS: ATORVASTATIN CALCIUM 80 MG TABLET PO SCH (20:48)
[2017-03-19] MEDS: QUETIAPINE FUMARATE 25 MG TABLET PO SCH (20:48)
[2017-03-20] MEDS: NORMAL SALINE 1000 ML 1,000 ML IV PRN ×2 (02:08→13:02)
[2017-03-20] MEDS: ACETAMINOPHEN 325 MG TABLET PO PRN ×2 (04:36→11:20)
[2017-03-20 06:35] LABS: HEMATOCRIT 32.4 % (36.0-47.0); HEMOGLOBIN 10.9 g/dL (12.0-15.5); MEAN CORPUSCULAR HEMOGLOBIN 29.5 pg (27.0-33.4); MEAN CORPUSCULAR HGB CONC 33.7 g/dL (32.0-36.0); MEAN CORPUSCULAR VOLUME 87 fl (80-97); PLATELET COUNT 223 10^3/uL (150-450); RED BLOOD COUNT 3.71 10^6/uL (3.72-5.28); RED CELL DISTRIBUTION WIDTH 12.9 % (11.5-14.0)
[2017-03-20 06:46] LABS: ANION GAP 9 (5-19); BLOOD UREA NITROGEN 32 mg/dL (7-20); CALCIUM 8.7 mg/dL (8.4-10.2); CARBON DIOXIDE 19 mmol/L (22-30); CHLORIDE 114 mmol/L (98-107); GLUCOSE 113 mg/dL (75-110); POTASSIUM 3.8 mmol/L (3.6-5.0); SODIUM 142.2 mmol/L (137-145)
[2017-03-20] MEDS: ASPIRIN/DIPYRIDAMOLE 25-200 MG 1 CAP.SR CPMP.12HR PO SCH ×2 (08:35→20:54)
[2017-03-20] MEDS: LISINOPRIL 10 MG TABLET PO SCH (09:35)
[2017-03-20] MEDS: BACITRACIN ZINC OINTMENT 15 GM TP SCH (09:36)
[2017-03-20] MEDS: DOCUSATE SODIUM 100 MG CAPSULE PO SCH (09:36)
[2017-03-20] MEDS ORDERED: LOPERAMIDE HCL 2 MG CAPSULE PO PRN (12:41)
--- NOTE | 2017-03-20 13:56 | PDOC PROGRESS REPORT ---
Subjective Progress Note for:: 03/20/17 Subjective:: Overnight patient has restless night due to multiple bowel movements. Had not had BM since admission and received colase. Per daughter, "she cleared out" and subsequently had difficulty sleeping. Less agitated overnight. This AM sleepy but arousable. Daughter at bedside. Reason For Visit: CVA HTN Physical Exam Vital Signs: Temp Pulse Resp BP Pulse Ox 99.6 F 75 20 141/51 H 97 03/20/17 07:13 03/20/17 07:13 03/20/17 07:13 03/20/17 07:13 03/20/17 07:13 Intake & Output 03/19/17 03/20/17 03/21/17 06:59 06:59 06:59 Intake Total 2482 2847 Output Total 150 1000 Balance 2332 1847 Weight 67.5 kg 66.5 kg General appearance: PRESENT: no acute distress, other - Elderly female, resting in bed Mouth exam: PRESENT: moist Respiratory exam: PRESENT: unlabored Cardiovascular exam: PRESENT: RRR. ABSENT: tachycardia GI/Abdominal exam: PRESENT: soft. ABSENT: tenderness Neurological exam: PRESENT: other - Unable to perform neuro exam as patient was uncooperative. ABSENT: altered Skin exam: PRESENT: dry, warm Results Laboratory Results: 03/20/17 05:35 03/20/17 05:35 03/19/17 03/19/17 03/20/17 13:57 13:57 05:35 WBC 11.9 H 10.0 RBC 3.57 L 3.71 L Hgb 10.4 L 10.9 L Hct 31.0 L 32.4 L MCV 87 87 MCH 29.1 29.5 MCHC 33.6 33.7 RDW 12.9 12.9 Plt Count 220 223 Sodium 141.8 Potassium 4.4 Chloride 110 H Carbon Dioxide 22 Anion Gap 10 BUN 44 H Creatinine 1.56 H Est GFR ( Amer) 38 L Est GFR (Non-Af Amer) 32 L Glucose 130 H Calcium 8.7 03/20/17 05:35 WBC RBC Hgb Hct MCV MCH MCHC RDW Plt Count Sodium 142.2 Potassium 3.8 Chloride 114 H Carbon Dioxide 19 L Anion Gap 9 BUN 32 H Creatinine 1.02 Est GFR ( Amer) > 60 Est GFR (Non-Af Amer) 52 L Glucose 113 H Calcium 8.7 03/16/17 03/16/17 03/16/17 02:17 02:17 08:03 Creatine Kinase 100 CK-MB (CK-2) 1.25 0.88 Troponin I 0.017 0.018 03/16/17 22:00 Creatine Kinase CK-MB (CK-2) 0.72 Troponin I < 0.012 Impressions: Carotid Doppler Study 03/16/17 10:05 IMPRESSION: NO HEMODYNAMICALLY SIGNIFICANT STENOSIS. Head MRI 03/16/17 10:05 IMPRESSION: Large area of acute infarction in the left occipital lobe with a tiny area in the left parietal lobe. Underlying atrophy and microvascular ischemia. EVIDENCE OF ACUTE STROKE: Yes LEFT CAR CHANGER Head CT 03/19/17 00:00 IMPRESSION: 1. Redemonstrated region of subacute ischemic change in the left occipital lobe compatible left CAR CHANGER distribution infarction with mild effacement of the adjacent sulcal spaces and no significant midline shift, hemorrhage, or downward herniation This exam was performed according to our departmental dose-optimization program, which includes automated exposure control, adjustment of the mA and/or kV according to patient size and/or use of iterative reconstruction technique. Chest X-Ray 03/19/17 03:29 IMPRESSION: 1. No acute pulmonary process identified. Assessment & Plan - Diagnosis (1) CVA (cerebral vascular accident) Qualifiers: CVA mechanism: occlusion Precerebral and cerebral artery: posterior cerebral artery Laterality of affected vessel: right Qualified Code(s): I63.531 - Cerebral infarction due to unspecified occlusion or stenosis of right posterior cerebral artery Is this a current diagnosis for this admission?: Yes Plan: Neurological exam s difficult given her dementia and difficulty following instructions. Continues to have some right lower visual field defect. Imaging consistent with acute CVA involving the right posterior circulation. MRI confirms this. Carotid Dopplers were unremarkable. TTE with preserved EF and no thrombus. Repeat CTH without acute CVA. Will need PT/OT rehab. (2) Dementia Qualifiers: Dementia type: Alzheimer's disease Is this a current diagnosis for this admission?: Yes Plan: Known dementia. Daughter concerned that dementia has worsened over last few weeks. - Donepezil discontinued on 03/19 (3) Hypertension Is this a current diagnosis for this admission?: Yes (5) ARF (acute renal failure) Is this a current diagnosis for this admission?: Yes Plan: Secondary to dehydration. Cr peaked at 2.2 on 03/19, has nicely downtrended to 1.0 on 03/20 - Continue IVF - Continue to monitor renal function, UOP, and I&Os (6) Leukocytosis Qualifiers: Leukocytosis type: other Qualified Code(s): D72.828 - Other elevated white blood cell count Is this a current diagnosis for this admission?: Yes Plan: Noted on 03/19 labs. Likely due to dehyrdation. Now improved today. - Time Time Spent with patient: 15-24 minutes Within: within 24 hours, Other - Referal made to [facility]. Likely appropriate for dc in 1-2 days
--- NOTE | 2017-03-20 18:02 | RADIOLOGY REPORT (SQ) ---
EXAM DESCRIPTION: NAKITA SWALLOW COMPLETED DATE/TIME: 03/19/2017 10:00 am REASON FOR STUDY: dysarthria, concern for silent aspiration COMPARISON: None. TECHNIQUE: Videofluoroscopic swallowing examination was performed in conjunction with speech patholo gy. Videofluoroscopic imaging was obtained and reviewed and these are the findings: RADIATION DOSE: Fluoro time 3.26 minutes 1 images saved to PACS. LIMITATIONS: None FINDINGS: The patient was brought into the fluoro room and placed upright on a modified barium swall ow chair. The patient was then given multiple consistencies mixed with barium to swallow under live fluoroscopic video guidance. According to the Speech Pathologist there wasno definite penetration an d no aspiration identified. Please refer to the speech pathology report for further details. IMPRESSION: NO EVIDENCE OF PENETRATION OR ASPIRATION.PLEASE SEE SPEECH PATHOLOGIST REPORT FOR OTHER FINDINGS AND RECOMMENDATIONS. COMMENT: None Quality ID [id number]: Final reports for procedures using fluoroscopy that document radiation exposure becca izzy, or exposure time and number of fluorographic images (if radiation exposure indices are not avail able) TECHNICAL DOCUMENTATION: JOB ID: [id number] [employer]- All Rights Reserved
[2017-03-20] MEDS: ATORVASTATIN CALCIUM 80 MG TABLET PO SCH (20:54)
[2017-03-20] MEDS: QUETIAPINE FUMARATE 25 MG TABLET PO SCH (20:54)
[2017-03-20] MEDS ORDERED: GABAPENTIN 300 MG CAPSULE PO ONE (23:00)
[2017-03-21] MEDS: NORMAL SALINE 1000 ML 1,000 ML IV PRN ×3 (01:58→20:28)
[2017-03-21] MEDS ORDERED: NIFEDIPINE 30 MG TAB.ER.24 PO ONE ×2 (04:05→20:30)
[2017-03-21 07:08] LABS: HEMATOCRIT 30.7 % (36.0-47.0); HEMOGLOBIN 10.5 g/dL (12.0-15.5); MEAN CORPUSCULAR HEMOGLOBIN 29.6 pg (27.0-33.4); MEAN CORPUSCULAR HGB CONC 34.4 g/dL (32.0-36.0); MEAN CORPUSCULAR VOLUME 86 fl (80-97); PLATELET COUNT 223 10^3/uL (150-450); RED BLOOD COUNT 3.55 10^6/uL (3.72-5.28); RED CELL DISTRIBUTION WIDTH 12.6 % (11.5-14.0); WHITE BLOOD COUNT 7.9 10^3/uL (4.0-10.5)
[2017-03-21 07:33] LABS: ANION GAP 10 (5-19); BLOOD UREA NITROGEN 15 mg/dL (7-20); CALCIUM 8.7 mg/dL (8.4-10.2); CARBON DIOXIDE 21 mmol/L (22-30); CHLORIDE 110 mmol/L (98-107); GLUCOSE 77 mg/dL (75-110); POTASSIUM 3.4 mmol/L (3.6-5.0); SODIUM 140.9 mmol/L (137-145)
[2017-03-21] MEDS: BACITRACIN ZINC OINTMENT 15 GM TP SCH (09:14)
[2017-03-21] MEDS: LISINOPRIL 10 MG TABLET PO SCH (09:14)
[2017-03-21] MEDS: ASPIRIN/DIPYRIDAMOLE 25-200 MG 1 CAP.SR CPMP.12HR PO SCH ×2 (09:15→20:03)
[2017-03-21] MEDS: TRAMADOL HCL 50 MG TABLET PO PRN (17:47)
--- NOTE | 2017-03-21 18:50 | PDOC PROGRESS REPORT ---
Subjective Progress Note for:: 03/21/17 Subjective:: Overnight patient had best night since admission. BP has been elevated and patient's daughter very concerned about this. Patient more interactive and alert today. Denies pain or any other complaints. Daughter at bedside. Reason For Visit: CVA HTN Physical Exam Vital Signs: Temp Pulse Resp BP Pulse Ox 97.9 F 60 19 137/52 H 92 03/21/17 16:31 03/21/17 16:31 03/21/17 16:31 03/21/17 16:31 03/21/17 12:43 Intake & Output 03/20/17 03/21/17 03/22/17 06:59 06:59 06:59 Intake Total 2847 2774 Output Total 1000 1925 Balance 1847 849 Weight 66.5 kg 67.5 kg General appearance: PRESENT: hard of hearing, other - Resting comfortably in bed Head exam: PRESENT: atraumatic, normocephalic Mouth exam: PRESENT: moist Neck exam: ABSENT: JVD Cardiovascular exam: PRESENT: RRR. ABSENT: tachycardia GI/Abdominal exam: PRESENT: soft. ABSENT: tenderness Extremities exam: ABSENT: pedal edema Neurological exam: PRESENT: alert, awake - Speech more congruent. Answering questions appropriately Results Laboratory Results: 03/21/17 06:55 03/21/17 06:55 03/21/17 03/21/17 06:55 06:55 WBC 7.9 RBC 3.55 L Hgb 10.5 L Hct 30.7 L MCV 86 MCH 29.6 MCHC 34.4 RDW 12.6 Plt Count 223 Sodium 140.9 Potassium 3.4 L Chloride 110 H Carbon Dioxide 21 L Anion Gap 10 BUN 15 Creatinine 0.81 Est GFR ( Amer) > 60 Est GFR (Non-Af Amer) > 60 Glucose 77 Calcium 8.7 03/16/17 03/16/17 03/16/17 02:17 02:17 08:03 Creatine Kinase 100 CK-MB (CK-2) 1.25 0.88 Troponin I 0.017 0.018 03/16/17 22:00 Creatine Kinase CK-MB (CK-2) 0.72 Troponin I < 0.012 Impressions: Carotid Doppler Study 03/16/17 10:05 IMPRESSION: NO HEMODYNAMICALLY SIGNIFICANT STENOSIS. Head MRI 03/16/17 10:05 IMPRESSION: Large area of acute infarction in the left occipital lobe with a tiny area in the left parietal lobe. Underlying atrophy and microvascular ischemia. EVIDENCE OF ACUTE STROKE: Yes LEFT DATA RECOVERY PLANNER Head CT 03/19/17 00:00 IMPRESSION: 1. Redemonstrated region of subacute ischemic change in the left occipital lobe compatible left DATA RECOVERY PLANNER distribution infarction with mild effacement of the adjacent sulcal spaces and no significant midline shift, hemorrhage, or downward herniation This exam was performed according to our departmental dose-optimization program, which includes automated exposure control, adjustment of the mA and/or kV according to patient size and/or use of iterative reconstruction technique. Modified Barium Swallow 03/19/17 00:00 IMPRESSION: NO EVIDENCE OF PENETRATION OR ASPIRATION.PLEASE SEE SPEECH PATHOLOGIST REPORT FOR OTHER FINDINGS AND RECOMMENDATIONS. Chest X-Ray 03/19/17 03:29 IMPRESSION: 1. No acute pulmonary process identified. Assessment & Plan - Diagnosis (1) CVA (cerebral vascular accident) Qualifiers: CVA mechanism: occlusion Precerebral and cerebral artery: posterior cerebral artery Laterality of affected vessel: right Qualified Code(s): I63.531 - Cerebral infarction due to unspecified occlusion or stenosis of right posterior cerebral artery Is this a current diagnosis for this admission?: Yes Plan: Neurological exam s difficult given her dementia and difficulty following instructions. Continues to have some right lower visual field defect. Imaging consistent with acute CVA involving the right posterior circulation. MRI confirms this. Carotid Dopplers were unremarkable. TTE with preserved EF and no thrombus. Repeat CTH without acute CVA. Will need PT/OT rehab. Awaiting placement. (2) Dementia Qualifiers: Dementia type: Alzheimer's disease Is this a current diagnosis for this admission?: Yes Plan: Known dementia. Daughter concerned that dementia has worsened over last few weeks. - Donepezil discontinued on 03/19 - MS improved today (3) Hypertension Is this a current diagnosis for this admission?: Yes Plan: Hypotension resolved. Now hypertensive. Restarted home lisinopril 10mg and procardia xl 30mg qPM. - SBP better this PM - Long discussion with pt's daughter who wants SBP to be "better controlled" and back at her normal of 90. I advised her that this is too tightly controlled and puts her mother at increased risk for falls. She expressed understanding - Will tailor BP meds based on reads (4) Confusion and disorientation Plan: Likely multifactorial due to dementia, prolonged hospitalization, and sedating medications. Much improved - Med list reviewed with particular attention to sedating medications. Neurontin and valium discontinued on 03/19 - Continue seroquel qHS and risperidal PRN (5) ARF (acute renal failure) Is this a current diagnosis for this admission?: Yes Plan: Secondary to dehydration. Cr peaked at 2.2 on 03/19, continues to improve, currently 0.81 on 03/21 - Continue IVF - Continue to monitor renal function, UOP, and I&Os (6) Leukocytosis Qualifiers: Leukocytosis type: other Qualified Code(s): D72.828 - Other elevated white blood cell count Is this a current diagnosis for this admission?: Yes Plan: Noted on 03/19 labs. Likely due to dehyrdation. Resolved - Time Time Spent with patient: 15-24 minutes Within: when bed available
[2017-03-21] MEDS: QUETIAPINE FUMARATE 25 MG TABLET PO SCH (20:02)
[2017-03-21] MEDS: ATORVASTATIN CALCIUM 80 MG TABLET PO SCH (20:02)
[2017-03-21] MEDS ORDERED: GABAPENTIN 300 MG CAPSULE PO ONE (20:30)
[2017-03-21] MEDS ORDERED: GABAPENTIN 300 MG CAPSULE PO SCH (22:00)
[2017-03-21] MEDS ORDERED: NIFEDIPINE 30 MG TAB.ER.24 PO SCH (22:00)
[2017-03-22 04:28] LABS: HEMATOCRIT 29.5 % (36.0-47.0); HEMOGLOBIN 9.9 g/dL (12.0-15.5); MEAN CORPUSCULAR HEMOGLOBIN 29.3 pg (27.0-33.4); MEAN CORPUSCULAR HGB CONC 33.6 g/dL (32.0-36.0); MEAN CORPUSCULAR VOLUME 87 fl (80-97); PLATELET COUNT 207 10^3/uL (150-450); RED BLOOD COUNT 3.38 10^6/uL (3.72-5.28); RED CELL DISTRIBUTION WIDTH 12.9 % (11.5-14.0); WHITE BLOOD COUNT 7.4 10^3/uL (4.0-10.5)
[2017-03-22 04:57] LABS: ANION GAP 7 (5-19); BLOOD UREA NITROGEN 14 mg/dL (7-20); CALCIUM 8.3 mg/dL (8.4-10.2); CARBON DIOXIDE 21 mmol/L (22-30); CHLORIDE 112 mmol/L (98-107); GLUCOSE 77 mg/dL (75-110); POTASSIUM 3.3 mmol/L (3.6-5.0); SODIUM 140.2 mmol/L (137-145)
[2017-03-22] MEDS: NORMAL SALINE 1000 ML 1,000 ML IV PRN (05:10)
[2017-03-22] MEDS ORDERED: POTASSIUM CHLORIDE 10 MEQ TABLET.SA PO ONE (09:00)
[2017-03-22] MEDS: ASPIRIN/DIPYRIDAMOLE 25-200 MG 1 CAP.SR CPMP.12HR PO SCH ×2 (09:31→20:36)
[2017-03-22] MEDS: LISINOPRIL 10 MG TABLET PO SCH (09:31)
[2017-03-22] MEDS: BACITRACIN ZINC OINTMENT 15 GM TP SCH (09:56)
[2017-03-22] MEDS ORDERED: NORMAL SALINE 1000 ML 1,000 ML IV PRN (10:57)
--- NOTE | 2017-03-22 11:47 | PDOC PROGRESS REPORT ---
Subjective Progress Note for:: 03/22/17 Subjective:: Overnight patient no events. Slept very well. BP much better controlled with SBP 's ranging from 100-110s. This AM, patient states that "she is hanging in there and is very strong". No complaints. Daughter at bedside. Reason For Visit: CVA HTN Physical Exam Vital Signs: Temp Pulse Resp BP Pulse Ox 97.8 F 30 L 16 100/48 L 94 03/22/17 10:51 03/22/17 10:51 03/22/17 10:51 03/22/17 10:51 03/22/17 10:51 Intake & Output 03/21/17 03/22/17 03/23/17 06:59 06:59 06:59 Intake Total 2774 3780 Output Total 1925 Balance 849 3780 Weight 67.5 kg 68.1 kg General appearance: PRESENT: no acute distress, well-developed, other - Resting in bed, comfortable. Head exam: PRESENT: normocephalic Mouth exam: PRESENT: moist Respiratory exam: PRESENT: clear to auscultation sara. ABSENT: crackles, tachypnea Cardiovascular exam: PRESENT: irregular rhythm, systolic murmur. ABSENT: tachycardia GI/Abdominal exam: PRESENT: soft. ABSENT: tenderness Neurological exam: PRESENT: alert, awake - Answering questions appropriately, moving all extremities Psychiatric exam: PRESENT: appropriate affect Results Laboratory Results: 03/22/17 04:05 03/22/17 04:05 03/22/17 03/22/17 04:05 04:05 WBC 7.4 RBC 3.38 L Hgb 9.9 L Hct 29.5 L MCV 87 MCH 29.3 MCHC 33.6 RDW 12.9 Plt Count 207 Sodium 140.2 Potassium 3.3 L Chloride 112 H Carbon Dioxide 21 L Anion Gap 7 BUN 14 Creatinine 0.85 Est GFR ( Amer) > 60 Est GFR (Non-Af Amer) > 60 Glucose 77 Calcium 8.3 L 03/16/17 03/16/17 03/16/17 02:17 02:17 08:03 Creatine Kinase 100 CK-MB (CK-2) 1.25 0.88 Troponin I 0.017 0.018 03/16/17 22:00 Creatine Kinase CK-MB (CK-2) 0.72 Troponin I < 0.012 Impressions: Carotid Doppler Study 03/16/17 10:05 IMPRESSION: NO HEMODYNAMICALLY SIGNIFICANT STENOSIS. Head MRI 03/16/17 10:05 IMPRESSION: Large area of acute infarction in the left occipital lobe with a tiny area in the left parietal lobe. Underlying atrophy and microvascular ischemia. EVIDENCE OF ACUTE STROKE: Yes LEFT TRANSCRIPTION SPECIALIST Head CT 03/19/17 00:00 IMPRESSION: 1. Redemonstrated region of subacute ischemic change in the left occipital lobe compatible left TRANSCRIPTION SPECIALIST distribution infarction with mild effacement of the adjacent sulcal spaces and no significant midline shift, hemorrhage, or downward herniation This exam was performed according to our departmental dose-optimization program, which includes automated exposure control, adjustment of the mA and/or kV according to patient size and/or use of iterative reconstruction technique. Modified Barium Swallow 03/19/17 00:00 IMPRESSION: NO EVIDENCE OF PENETRATION OR ASPIRATION.PLEASE SEE SPEECH PATHOLOGIST REPORT FOR OTHER FINDINGS AND RECOMMENDATIONS. Chest X-Ray 03/19/17 03:29 IMPRESSION: 1. No acute pulmonary process identified. Assessment & Plan - Diagnosis (1) CVA (cerebral vascular accident) Qualifiers: CVA mechanism: occlusion Precerebral and cerebral artery: posterior cerebral artery Laterality of affected vessel: right Qualified Code(s): I63.531 - Cerebral infarction due to unspecified occlusion or stenosis of right posterior cerebral artery Is this a current diagnosis for this admission?: Yes Plan: Neurological exam s difficult given her dementia and difficulty following instructions. Continues to have some right lower visual field defect. Imaging consistent with acute CVA involving the right posterior circulation. MRI confirms this. Carotid Dopplers were unremarkable. TTE with preserved EF and no thrombus. Repeat CTH without acute CVA. Will need PT/OT rehab. Awaiting placement at [facility]. (2) Dementia Qualifiers: Dementia type: Alzheimer's disease Is this a current diagnosis for this admission?: Yes Plan: Known dementia. Daughter concerned that dementia has worsened over last few weeks. - Donepezil discontinued on 03/19 - MS now at baseline - Limit sedating medications (3) Hypertension Qualifiers: Hypertension type: essential hypertension Qualified Code(s): I10 - Essential (primary) hypertension Is this a current diagnosis for this admission?: Yes Plan: Hypotension resolved. Now hypertensive. Restarted home lisinopril 10mg and procardia xl 30mg qPM. - Resolved, good control on 03/22 - Avoid too tight control of BP (4) Confusion and disorientation Plan: Likely multifactorial due to dementia, prolonged hospitalization, and sedating medications. Much improved - Med list reviewed with particular attention to sedating medications. Neurontin and valium discontinued on 03/19 - Much improved, Continue seroquel qHS and risperidal PRN (5) ARF (acute renal failure) Is this a current diagnosis for this admission?: Yes Plan: Secondary to dehydration. Cr peaked at 2.2 on 03/19, continues to improve, currently 0.85 on 03/22 - Continue IVF however will decrease rate from 125ml/hr to maintanance of 50ml/ hr, encouraged to eat and drink - Continue to monitor renal function, UOP, and I&Os (6) Leukocytosis Qualifiers: Leukocytosis type: other Qualified Code(s): D72.828 - Other elevated white blood cell count Is this a current diagnosis for this admission?: Yes Plan: Noted on 03/19 labs. Likely due to dehyrdation. Resolved - Time Time Spent with patient: Less than 15 minutes Within: when bed available - Plan Summary Plan Summary: Clinically improved, awaiting placement
--- NOTE | 2017-03-22 16:37 | EKG REPORT ---
SEVERITY:- ABNORMAL ECG - ATRIAL FIBRILLATION, V-RATE 61-101 LVH BY VOLTAGE BORDERLINE PROLONGED QT INTERVAL : Confirmed by: Carlos Enrique Maldonado MD 22-Mar-2017 16:36:47
[2017-03-22] MEDS: ATORVASTATIN CALCIUM 80 MG TABLET PO SCH (20:36)
[2017-03-22] MEDS: QUETIAPINE FUMARATE 25 MG TABLET PO SCH (20:36)
[2017-03-22] MEDS: GABAPENTIN 300 MG CAPSULE PO SCH (20:37)
[2017-03-23] MEDS: NIFEDIPINE 30 MG TAB.ER.24 PO SCH ×2 (02:11→21:35)
[2017-03-23 07:23] LABS: ANION GAP 7 (5-19); BLOOD UREA NITROGEN 19 mg/dL (7-20); CALCIUM 8.5 mg/dL (8.4-10.2); CARBON DIOXIDE 22 mmol/L (22-30); CHLORIDE 113 mmol/L (98-107); GLUCOSE 88 mg/dL (75-110); MAGNESIUM 1.8 mg/dL (1.6-2.3); POTASSIUM 3.9 mmol/L (3.6-5.0)
[2017-03-23] MEDS: LISINOPRIL 10 MG TABLET PO SCH (11:22)
[2017-03-23] MEDS: TRAMADOL HCL 50 MG TABLET PO PRN (11:50)
[2017-03-23] MEDS: ASPIRIN/DIPYRIDAMOLE 25-200 MG 1 CAP.SR CPMP.12HR PO SCH ×2 (11:50→20:25)
[2017-03-23] MEDS: BACITRACIN ZINC OINTMENT 15 GM TP SCH (12:01)
--- NOTE | 2017-03-23 12:58 | PDOC PROGRESS REPORT ---
Subjective Progress Note for:: 03/23/17 Subjective:: Overnight patient no events. Slept very well after she was able to find a position of comfort. BP much better controlled. Appetite improved after eating outside food. Daughter at bedside. Reason For Visit: CVA HTN Physical Exam Vital Signs: Temp Pulse Resp BP Pulse Ox 97.5 F 61 18 174/70 H 97 03/23/17 12:02 03/23/17 12:02 03/23/17 12:02 03/23/17 12:02 03/23/17 12:02 Intake & Output 03/22/17 03/23/17 03/24/17 06:59 06:59 06:59 Intake Total 3780 1139 Output Total 1000 Balance 3780 139 Weight 68.1 kg 69.9 kg General appearance: PRESENT: no acute distress, well-developed, well-nourished, other - Resting comfortably in bed Head exam: PRESENT: normocephalic Mouth exam: PRESENT: moist Respiratory exam: PRESENT: clear to auscultation sara. ABSENT: wheezes Cardiovascular exam: PRESENT: RRR, systolic murmur Extremities exam: PRESENT: full ROM Neurological exam: PRESENT: awake, CN II-XII grossly intact Skin exam: PRESENT: intact Results Laboratory Results: 03/22/17 04:05 03/23/17 05:58 03/23/17 05:58 Sodium 142.0 Potassium 3.9 Chloride 113 H Carbon Dioxide 22 Anion Gap 7 BUN 19 Creatinine 0.90 Est GFR ( Amer) > 60 Est GFR (Non-Af Amer) > 60 Glucose 88 Calcium 8.5 Magnesium 1.8 03/16/17 03/16/17 03/16/17 02:17 02:17 08:03 Creatine Kinase 100 CK-MB (CK-2) 1.25 0.88 Troponin I 0.017 0.018 03/16/17 22:00 Creatine Kinase CK-MB (CK-2) 0.72 Troponin I < 0.012 Impressions: Carotid Doppler Study 03/16/17 10:05 IMPRESSION: NO HEMODYNAMICALLY SIGNIFICANT STENOSIS. Head MRI 03/16/17 10:05 IMPRESSION: Large area of acute infarction in the left occipital lobe with a tiny area in the left parietal lobe. Underlying atrophy and microvascular ischemia. EVIDENCE OF ACUTE STROKE: Yes LEFT ATTRACTION WORKER Head CT 03/19/17 00:00 IMPRESSION: 1. Redemonstrated region of subacute ischemic change in the left occipital lobe compatible left ATTRACTION WORKER distribution infarction with mild effacement of the adjacent sulcal spaces and no significant midline shift, hemorrhage, or downward herniation This exam was performed according to our departmental dose-optimization program, which includes automated exposure control, adjustment of the mA and/or kV according to patient size and/or use of iterative reconstruction technique. Modified Barium Swallow 03/19/17 00:00 IMPRESSION: NO EVIDENCE OF PENETRATION OR ASPIRATION.PLEASE SEE SPEECH PATHOLOGIST REPORT FOR OTHER FINDINGS AND RECOMMENDATIONS. Chest X-Ray 03/19/17 03:29 IMPRESSION: 1. No acute pulmonary process identified. Assessment & Plan - Diagnosis (1) CVA (cerebral vascular accident) Qualifiers: CVA mechanism: occlusion Precerebral and cerebral artery: posterior cerebral artery Laterality of affected vessel: right Qualified Code(s): I63.531 - Cerebral infarction due to unspecified occlusion or stenosis of right posterior cerebral artery Is this a current diagnosis for this admission?: Yes Plan: Neurological exam s difficult given her dementia and difficulty following instructions. Continues to have some right lower visual field defect. Imaging consistent with acute CVA involving the right posterior circulation. MRI confirms this. Carotid Dopplers were unremarkable. TTE with preserved EF and no thrombus. Repeat CTH without acute CVA. Will need PT/OT rehab. Awaiting placement at [facility]. (2) Dementia Qualifiers: Dementia type: Alzheimer's disease Is this a current diagnosis for this admission?: Yes Plan: Known dementia. Daughter concerned that dementia has worsened over last few weeks. - Donepezil discontinued on 03/19 - MS now at baseline - Limit sedating medications (3) Hypertension Qualifiers: Hypertension type: essential hypertension Qualified Code(s): I10 - Essential (primary) hypertension Is this a current diagnosis for this admission?: Yes Plan: Blood pressure fluctuating. Overall better controlled. Noted to be higher this afternoon. Continue home lisinopril 10mg and procardia xl 30mg qPM. - D/c IVF, encouraged PO intake, removed pak catheter - Continue to monitor. - Avoid too tight control of BP (4) Confusion and disorientation Plan: Likely multifactorial due to dementia, prolonged hospitalization, and sedating medications. Much improved - Med list reviewed with particular attention to sedating medications. Neurontin and valium discontinued on 03/19 - Much improved, Continue seroquel qHS and risperidal PRN (5) ARF (acute renal failure) Is this a current diagnosis for this admission?: Yes Plan: Secondary to dehydration, now resolved - Cr peaked at 2.2 on 03/19, continues to improve, currently 0.90 on 03/23 - D/c-ed encouraged to eat and drink - Continue to monitor renal function, UOP, and I&Os (6) Leukocytosis Qualifiers: Leukocytosis type: other Qualified Code(s): D72.828 - Other elevated white blood cell count Is this a current diagnosis for this admission?: Yes (7) Afib Qualifiers: Atrial fibrillation type: paroxysmal Qualified Code(s): I48.0 - Paroxysmal atrial fibrillation Is this a current diagnosis for this admission?: Yes Plan: Likely has long standing chronic, pAfib. Patient daughter does not remember being told she has afib. Has been noted to intermittently go into Afib on monitor. Rate is controlled and asymptomatic. - Continue current medications for now - Discussed that she may be a candidate for anticoagulation given Afib. CHADSVASC score is 5 which puts her at a high yearly risk for stroke. Discussed risks and benefits of AC. Given patient's frail state, would be cautious about starting AC. Will defer decision to PCP. Patient's daughter agrees with plan. - Time Time Spent with patient: 15-24 minutes Anticipated discharge: SNF Within: when bed available - Plan Summary Plan Summary: [facility] on Friday, pending bed availability
[2017-03-23] MEDS ORDERED: HYDRALAZINE HCL INJ/PF 20 MG/1 ML SDV IV PRN (16:39)
[2017-03-23] MEDS: ATORVASTATIN CALCIUM 80 MG TABLET PO SCH (20:24)
[2017-03-23] MEDS: QUETIAPINE FUMARATE 25 MG TABLET PO SCH (20:24)
[2017-03-23] MEDS ORDERED: HEPARIN SOD (PORCINE) 1,000 UNIT/ML 10 ML VIAL IV ONE (21:26)
[2017-03-23] MEDS: GABAPENTIN 300 MG CAPSULE PO SCH (21:34)
[2017-03-23 21:56] LABS: ABSOLUTE BASOPHILS # (AUTO) 0.1 10^3/uL (0.0-0.2); ABSOLUTE EOSINOPHILS # (AUTO) 0.6 10^3/uL (0.0-0.6); ABSOLUTE LYMPHOCYTES (AUTO) 1.4 10^3/uL (0.5-4.7); ABSOLUTE MONOCYTES (AUTO) 0.8 10^3/uL (0.1-1.4); ABSOLUTE NEUT (AUTO) 4.1 10^3/uL (1.7-8.2); BASOPHILS % (AUTO) 0.7 % (0-2); EOSINOPHILS % (AUTO) 8.5 % (0-6); HEMATOCRIT 31.8 % (36.0-47.0); HEMOGLOBIN 10.8 g/dL (12.0-15.5); LYMPHOCYTES % (AUTO) 20.1 % (13-45); MEAN CORPUSCULAR HEMOGLOBIN 29.4 pg (27.0-33.4); MEAN CORPUSCULAR HGB CONC 33.9 g/dL (32.0-36.0); MEAN CORPUSCULAR VOLUME 87 fl (80-97); MONOCYTES % (AUTO) 11.8 % (3-13); PLATELET COUNT 234 10^3/uL (150-450); RED BLOOD COUNT 3.67 10^6/uL (3.72-5.28); RED CELL DISTRIBUTION WIDTH 12.8 % (11.5-14.0); SEGMENTED NEUTROPHILS % (AUTO) 58.9 % (42-78); TOTAL CELLS COUNTED % (AUTO) 100 %
[2017-03-23] MEDS ORDERED: WARFARIN SODIUM 5 MG TABLET PO SCH (22:00)
[2017-03-23 22:07] LABS: INTERNATIONAL RATION (INR) 1.01
[2017-03-23 22:08] LABS: PARTIAL THROMBOPLASTIN TIME 33.7 SEC (23.5-35.8)
[2017-03-23] MEDS: HEPARIN SODIUM,PORCINE/D5W 25,000 UNIT/250 ML RTUINJ IV PRN (23:41)
[2017-03-23] MEDS: CYCLOBENZAPRINE HCL 10 MG TABLET PO PRN (23:41)
[2017-03-24 06:27] LABS: HEMATOCRIT 30.2 % (36.0-47.0); HEMOGLOBIN 10.5 g/dL (12.0-15.5); MEAN CORPUSCULAR HEMOGLOBIN 29.9 pg (27.0-33.4); MEAN CORPUSCULAR HGB CONC 34.7 g/dL (32.0-36.0); MEAN CORPUSCULAR VOLUME 86 fl (80-97); PLATELET COUNT 224 10^3/uL (150-450); RED CELL DISTRIBUTION WIDTH 12.8 % (11.5-14.0); WHITE BLOOD COUNT 7.2 10^3/uL (4.0-10.5)
[2017-03-24 06:35] LABS: INTERNATIONAL RATION (INR) 1.06; PROTHROMBIN TIME 14.6 SEC (11.4-15.4)
[2017-03-24] MEDS: ASPIRIN 81 MG TABLET, ENT COATED PO SCH (11:59)
[2017-03-24] MEDS: LISINOPRIL 10 MG TABLET PO SCH (11:59)
[2017-03-24] MEDS: BACITRACIN ZINC OINTMENT 15 GM TP SCH (12:00)
--- NOTE | 2017-03-24 12:46 | PDOC PROGRESS REPORT ---
Subjective Progress Note for:: 03/24/17 Subjective:: Overnight patient no events. Daughter wanted to start patient on anticoaguation given history of Afib. Started on Heparin GTT and Coumadin. Slept very well. Per daughter not eating well still. Reason For Visit: CVA HTN Physical Exam Vital Signs: Temp Pulse Resp BP Pulse Ox 98.5 F 72 20 133/44 H 90 L 03/24/17 07:16 03/24/17 07:16 03/24/17 07:16 03/24/17 07:16 03/24/17 07:16 Intake & Output 03/23/17 03/24/17 03/25/17 06:59 06:59 06:59 Intake Total 1139 1042 Output Total 1000 475 Balance 139 567 Weight 69.9 kg 74.1 kg General appearance: PRESENT: no acute distress, other - Sleeping, appears comfortable Respiratory exam: PRESENT: unlabored, other Cardiovascular exam: PRESENT: RRR Neurological exam: PRESENT: other - Sleeping unable to assess Results Laboratory Results: 03/24/17 05:50 03/23/17 05:58 03/23/17 03/24/17 21:48 05:50 WBC 7.0 7.2 RBC 3.67 L 3.50 L Hgb 10.8 L 10.5 L Hct 31.8 L 30.2 L MCV 87 86 MCH 29.4 29.9 MCHC 33.9 34.7 RDW 12.8 12.8 Plt Count 234 224 Seg Neutrophils % 58.9 Lymphocytes % 20.1 Monocytes % 11.8 Eosinophils % 8.5 H Basophils % 0.7 Absolute Neutrophils 4.1 Absolute Lymphocytes 1.4 Absolute Monocytes 0.8 Absolute Eosinophils 0.6 Absolute Basophils 0.1 03/16/17 03/16/17 03/16/17 02:17 02:17 08:03 Creatine Kinase 100 CK-MB (CK-2) 1.25 0.88 Troponin I 0.017 0.018 03/16/17 22:00 Creatine Kinase CK-MB (CK-2) 0.72 Troponin I < 0.012 Impressions: Carotid Doppler Study 03/16/17 10:05 IMPRESSION: NO HEMODYNAMICALLY SIGNIFICANT STENOSIS. Head MRI 03/16/17 10:05 IMPRESSION: Large area of acute infarction in the left occipital lobe with a tiny area in the left parietal lobe. Underlying atrophy and microvascular ischemia. 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 Redemonstrated region of subacute ischemic change in the left occipital lobe compatible left SALOON KEEPER distribution infarction with mild effacement of the adjacent sulcal spaces and no significant midline shift, hemorrhage, or downward herniation This exam was performed according to our departmental dose-optimization program, which includes automated exposure control, adjustment of the mA and/or kV according to patient size and/or use of iterative reconstruction technique. Modified Barium Swallow 03/19/17 00:00 IMPRESSION: NO EVIDENCE OF PENETRATION OR ASPIRATION.PLEASE SEE SPEECH PATHOLOGIST REPORT FOR OTHER FINDINGS AND RECOMMENDATIONS. Chest X-Ray 03/19/17 03:29 IMPRESSION: 1. No acute pulmonary process identified. Assessment & Plan - Diagnosis (1) Afib Qualifiers: Atrial fibrillation type: paroxysmal Qualified Code(s): I48.0 - Paroxysmal atrial fibrillation Is this a current diagnosis for this admission?: Yes Plan: Likely has long standing chronic, pAfib. Patient daughter does not remember being told she has afib. Has been noted to intermittently go into Afib on monitor. Rate is controlled and asymptomatic. - Continue current medications for now - On 03/23: Discussed that she may be a candidate for anticoagulation given Afib. CHADSVASC score is 5 which puts her at a high yearly risk for stroke. Discussed risks and benefits of AC. Given patient's frail state, would be cautious about starting AC - On 03/23 overnight: Daughter changed mind and wanted to start AC. Dr. Glaser was paged and started heparin GTT and warfarin - This AM, spoke with patient's daughter regarding the following issues 1. Heparin GTT is NOT indicated for bridging when starting Warfarin in Afib. This is due to the low daily risk of CVA in Afib and studies have showed that bridging with Heparin may actually cause more harm. I also expressed my concern that keeping the patient attached to an IV will put her at an increase risk for falls and can cause delirium 2. I was NOT in favor of using Warfarin for this patient given need for close dietary management and frequent INR checks. A more preferable agent would be a DOAC which does not require laboratory monitoring, dietary restriction, and now have reversal agents that are either FDA approved or soon to be approved 3. Patient's daughter states that she wanted to continue Heparin and Warfarin , which was against my advice. I discussed the risks of continuing these therapies. She indicated that she would like to talk to the patient's PCP before making changes. I told her this was acceptable as long as she acknowledged the risks associated current management, as documented above. She was agreeable. - This conversation was witnessed by patient's RN. 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 Continues to have some right lower visual field defect. Imaging consistent with acute CVA involving the right posterior circulation. MRI confirms this. Carotid Dopplers were unremarkable. TTE with preserved EF and no thrombus. Repeat CTH without acute CVA. Will need PT/OT rehab. Awaiting placement at [facility]. (3) Dementia Qualifiers: Dementia type: Alzheimer's disease Is this a current diagnosis for this admission?: Yes Plan: Known dementia. Daughter concerned that dementia has worsened over last few weeks. - Donepezil discontinued on 03/19, MS now at baseline - Limit sedating medications (4) Hypertension Qualifiers: Hypertension type: essential hypertension Qualified Code(s): I10 - Essential (primary) hypertension Is this a current diagnosis for this admission?: Yes Plan: Blood pressure fluctuating. Overall better controlled. Noted to be higher this afternoon. Continue home lisinopril 10mg and procardia xl 30mg qPM. D/c IVF and removed pak catheter on 03/23 - Continue to monitor, no changed to medications. Has PRN IV hydralazine ordered - Avoid too tight control of BP given risk of falls - Patient's daughter counseled on multiple occasions this admission (5) Confusion and disorientation Is this a current diagnosis for this admission?: Yes Plan: Likely multifactorial due to dementia, prolonged hospitalization, and sedating medications. - Med list reviewed with particular attention to sedating medications. Neurontin and valium discontinued on 03/19 - Much improved, Continue seroquel qHS and risperidal PRN (6) ARF (acute renal failure) Is this a current diagnosis for this admission?: Yes Plan: Secondary to dehydration, now resolved - Cr peaked at 2.2 on 03/19, continues to improve, currently 0.90 on 03/23 - D/c-ed encouraged to eat and drink - Continue to monitor renal function, UOP, and I&Os (7) Leukocytosis Qualifiers: Leukocytosis type: other Qualified Code(s): D72.828 - Other elevated white blood cell count Is this a current diagnosis for this admission?: Yes Plan: Noted on 03/19 labs. Likely due to dehydration. Resolved (8) Discharge planning issues Is this a current diagnosis for this admission?: Yes Plan: Long discussion today regarding discharge planning. patient is medically cleared for discharge. Daughter is concerned that patient is not eating enough and wants diet to improve before discharge. - I advised her that while nutrition is very important component for a healthy recovery, that her diet may take days to weeks to return to normal and this reason alone is not a reason to keep patient in the hospital. - Discussed with case management, who are awaiting a bed offer. - Time Time Spent with patient: 25-34 minutes Within: when bed available
[2017-03-24 12:47] LABS: APPEARANCE,URINE SLIGHTLY-CLOUDY; BILIRUBIN,URINE NEGATIVE (NEGATIVE); COLOR,URINE YELLOW; GLUCOSE, URINE NEGATIVE (NEGATIVE); KETONES,URINE NEGATIVE (NEGATIVE); LEUKOCYTE ESTERASE,URINE MODERATE (NEGATIVE); NITRITE,URINE POSITIVE (NEGATIVE); PROTEIN,URINE NEGATIVE (NEGATIVE); URIC ACID CRYSTALS,URINE FEW /HPF; URINE SPECIFIC GRAVITY 1.009; UROBILINOGEN,URINE NEGATIVE mg/dL (<2.0)
[2017-03-24] MEDS ORDERED: NIFEDIPINE 30 MG TAB.ER.24 PO SCH (20:00)
[2017-03-24] MEDS: GABAPENTIN 300 MG CAPSULE PO SCH (20:22)
[2017-03-24] MEDS: WARFARIN SODIUM 5 MG TABLET PO SCH (20:23)
[2017-03-24] MEDS: ATORVASTATIN CALCIUM 80 MG TABLET PO SCH (20:23)
[2017-03-24] MEDS: QUETIAPINE FUMARATE 25 MG TABLET PO SCH (20:23)
[2017-03-24] MEDS ORDERED: NITROGLYCERIN 0.4 MG/TAB 25 TAB/BOTTLE ONE (20:59)
[2017-03-24] MEDS ORDERED: OXYCODONE HCL IR 5 MG TABLET PO ONE (21:30)
[2017-03-24] MEDS ORDERED: MAG HYDROX/AL HYDROX/SIMETH SUSP 30 ML UDCUP PO ONE (21:30)
[2017-03-24 22:21] LABS: ANION GAP 8 (5-19); BLOOD UREA NITROGEN 13 mg/dL (7-20); CALCIUM 8.7 mg/dL (8.4-10.2); CARBON DIOXIDE 23 mmol/L (22-30); CHLORIDE 108 mmol/L (98-107); GLUCOSE 162 mg/dL (75-110); POTASSIUM 3.6 mmol/L (3.6-5.0); SODIUM 139.2 mmol/L (137-145)
[2017-03-24] MEDS: RISPERIDONE 0.25 MG TABLET PO PRN (22:32)
[2017-03-24] MEDS ORDERED: DIPHENHYDRAMINE HCL 50 MG/ML VIAL IV ONE (22:41)
[2017-03-24] MEDS ORDERED: DIPHENHYDRAMINE HCL 50 MG/ML VIAL ONE (22:46)
[2017-03-25 03:54] LABS: INTERNATIONAL RATION (INR) 1.14; PROTHROMBIN TIME 15.3 SEC (11.4-15.4)
[2017-03-25] MEDS: HEPARIN SODIUM,PORCINE/D5W 25,000 UNIT/250 ML RTUINJ IV PRN (05:35)
[2017-03-25] MEDS: LISINOPRIL 10 MG TABLET PO SCH (09:43)
[2017-03-25] MEDS: ASPIRIN 81 MG TABLET, ENT COATED PO SCH (09:44)
--- NOTE | 2017-03-25 09:44 | EKG REPORT ---
SEVERITY:- OTHERWISE NORMAL ECG - SINUS RHYTHM ATRIAL PREMATURE COMPLEX : Confirmed by: Remberto Rodriguez 25-Mar-2017 09:43:46
[2017-03-25] MEDS: BACITRACIN ZINC OINTMENT 15 GM TP SCH (09:45)
[2017-03-25] MEDS ORDERED: MAGNESIUM HYDROXIDE SUSP 30 ML UDCUP PO PRN (14:27)
--- NOTE | 2017-03-25 15:36 | PDOC PROGRESS REPORT ---
Subjective Progress Note for:: 03/25/17 Subjective:: Had an episode of chest pain last night. Troponins have become positive. She has no recollection of having had chest pain last night however the daughters at the bedside and confirms that she did complain of chest pain. Reason For Visit: CVA HTN Physical Exam Vital Signs: Temp Pulse Resp BP Pulse Ox 98.5 F 62 18 127/50 H 90 L 03/25/17 12:02 03/25/17 13:25 03/25/17 12:02 03/25/17 12:02 03/25/17 12:02 Intake & Output 03/24/17 03/25/17 03/26/17 06:59 06:59 06:59 Intake Total 1042 903 Output Total 475 500 Balance 567 403 Weight 74.1 kg 72.6 kg General appearance: PRESENT: no acute distress Eye exam: PRESENT: conjunctiva pink. ABSENT: scleral icterus Mouth exam: PRESENT: moist, tongue midline Neck exam: ABSENT: JVD Respiratory exam: PRESENT: clear to auscultation sara. ABSENT: rales, rhonchi, wheezes Cardiovascular exam: PRESENT: RRR. ABSENT: diastolic murmur, rubs, systolic murmur Extremities exam: ABSENT: calf tenderness, clubbing, pedal edema Neurological exam: PRESENT: alert, awake, oriented to person, oriented to place , oriented to time, oriented to situation, CN II-XII grossly intact. ABSENT: motor sensory deficit Psychiatric exam: PRESENT: appropriate affect Skin exam: PRESENT: dry, intact, warm. ABSENT: cyanosis, rash Results Laboratory Results: 03/24/17 05:50 03/24/17 21:35 03/24/17 21:35 Sodium 139.2 Potassium 3.6 Chloride 108 H Carbon Dioxide 23 Anion Gap 8 BUN 13 Creatinine 0.82 Est GFR ( Amer) > 60 Est GFR (Non-Af Amer) > 60 Glucose 162 H Calcium 8.7 03/16/17 03/16/17 03/16/17 02:17 02:17 08:03 Creatine Kinase 100 CK-MB (CK-2) 1.25 0.88 Troponin I 0.017 0.018 03/16/17 03/24/17 03/25/17 22:00 21:35 03:26 Creatine Kinase CK-MB (CK-2) 0.72 Troponin I < 0.012 0.254 0.179 03/25/17 10:55 Creatine Kinase CK-MB (CK-2) Troponin I 0.125 Impressions: Carotid Doppler Study 03/16/17 10:05 IMPRESSION: NO HEMODYNAMICALLY SIGNIFICANT STENOSIS. Head MRI 03/16/17 10:05 IMPRESSION: Large area of acute infarction in the left occipital lobe with a tiny area in the left parietal lobe. Underlying atrophy and microvascular ischemia. 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 Redemonstrated region of subacute ischemic change in the left occipital lobe compatible left [employer]CH[employer]IC distribution infarction with mild effacement of the adjacent sulcal spaces and no significant midline shift, hemorrhage, or downward herniation This exam was performed according to our departmental dose-optimization program, which includes automated exposure control, adjustment of the mA and/or kV according to patient size and/or use of iterative reconstruction technique. Modified Barium Swallow 03/19/17 00:00 IMPRESSION: NO EVIDENCE OF PENETRATION OR ASPIRATION.PLEASE SEE SPEECH PATHOLOGIST REPORT FOR OTHER FINDINGS AND RECOMMENDATIONS. Chest X-Ray 03/19/17 03:29 IMPRESSION: 1. No acute pulmonary process identified. Assessment & Plan - Diagnosis (1) Visual field defects Is this a current diagnosis for this admission?: Yes Plan: Secondary to CVA. 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 Continue with aspirin and Coumadin. (3) Hyperlipidemia Is this a current diagnosis for this admission?: Yes Plan: Continue with Lipitor. (4) Dementia Qualifiers: Dementia type: Alzheimer's disease Is this a current diagnosis for this admission?: Yes (5) Hypertension Qualifiers: Hypertension type: essential hypertension Qualified Code(s): I10 - Essential (primary) hypertension Is this a current diagnosis for this admission?: Yes Plan: Continue with Norvasc. (6) Peripheral vascular disease Is this a current diagnosis for this admission?: Yes (7) Non-STEMI (non-ST elevated myocardial infarction) Is this a current diagnosis for this admission?: Yes Plan: She had chest pain last night however now has no recollection of that given her dementia. She has elevated troponin suggestive of a non-STEMI. Most likely just will do medical management however will consult cardiology for their opinion. - Time Time Spent with patient: 25-34 minutes - Inpatient Certification Medical Necessity: Need Close Monitoring Due to Risk of Patient Decompensation
--- NOTE | 2017-03-25 20:21 | EKG REPORT ---
SEVERITY:- ABNORMAL ECG - SINUS RHYTHM CONSIDER ANTEROSEPTAL INFARCT : Confirmed by: Remberto Rodriguez 25-Mar-2017 20:21:06
[2017-03-25] MEDS: ATORVASTATIN CALCIUM 80 MG TABLET PO SCH (21:31)
[2017-03-25] MEDS: WARFARIN SODIUM 5 MG TABLET PO SCH (21:37)
[2017-03-25] MEDS: GABAPENTIN 300 MG CAPSULE PO SCH (21:37)
[2017-03-25] MEDS: QUETIAPINE FUMARATE 25 MG TABLET PO SCH (21:37)
[2017-03-25 23:26] LABS: CREATINE KINASE MB 0.75 ng/mL (<4.55); TROPONIN I 0.087 ng/mL
--- NOTE | 2017-03-25 23:29 | CONSULTATION REPORT E ---
Consultation Report NAME: LOUANN ROACH : 1935 AGE: 81Y DATE: 03/25/2017 ROOM: 317 A TO: STEVO ROSS M.D. FROM: FRANKY RICE M.D. Requesting Physician Note that the patient was seen at 1:30 p.m. and I spent about 35 minutes seeing the patient, reviewing her medication and adjusting her medications. History obtained from the patient's daughter since the patient has dementia. REASON FOR CONSULTATION: Patient with elevated troponin I after prolonged chest pain. Evaluate for non-ST elevation MT. HISTORY OF PRESENT ILLNESS: Patient with a history of hypertension, dementia, peripheral vascular disease, and known in this admission to have paroxysmal episodes of atrial fibrillation with controlled ventricular response. She was admitted on 03/15/2017 with difficulty with her sight, ambulation, and exceptional confusion and delirium and delusions. She was found to have a large area of infarction in the left occipital with a tiny area in the left parietal lobe with underlying atrophy and microvascular ischemia, the stroke being in the left posterior cerebral artery. The patient also has been having swallowing issues and had monitored barium study and has had appropriate therapeutic measures, dietary present for her diet to prevent aspiration in place. The patient yesterday as per the daughter the patient looked very uncomfortable and sickly and she did say that she had chest pain which lasted for about an hour. Also the daughter states that her mouth was hard and subsequently had numbness and tingling. She was also found to be slightly short of breath. Although her EKG shows poor R wave V1 through V4 which is new, the patient remains in sinus rhythm, there being no acute changes. The patient's troponin I, which on admission was within normal limits mason up on 03/24/2017 at 21:35 to 0.254 and subsequently is trending down to 0.179 and 0.125. PAST MEDICAL HISTORY: As per the daughter the patient has a past history of CVAs and TIAs, history of hypertension. No prior history of MT. The patient has been noted to be in paroxysmal atrial fibrillation with not a fast ventricular response this admission. The patient is on anticoagulation for that. The patient this admission has had a stroke. She also had dysphagia. The patient also has a past history of hypertension, peripheral vascular disease. She has had a left carotid endarterectomy and recent carotid study shows that there was no significant stenosis. There is no past history of MT and past history of heart murmur. She has a past history of pneumonia but no history of asthma or COPD. No history of sleep apnea. No history of pulmonary embolism. She has no history of hiatal hernia, seizures, headaches, or migraines. She has a history of dementia. She has no history of diabetes mellitus or thyroid disease. At home she was on aspirin and Zocor for her hyperlipidemia. REVIEW OF SYSTEMS: As per the daughter review of systems there is no fever, chills, or rigors. Confusion, delirium, and difficulty ambulation and decreased p.o. intake and problems with her seeing as per the daughter, but no fevers, chills, or rigors. The patient does have some dysphagia which is being managed by dietary modification. She has no history of diabetes mellitus. Past history of CVA and TIAs. History of hypertension. No prior history of MT or congestive heart failure. No history of palpitation but the patient this admission has been noted to be in paroxysmal atrial fibrillation. The patient is on Coumadin for that. There is no history of chronic kidney disease. There is no history of GI bleed. The patient does not have a hearing loss. The patient does have a history of dementia. She was on donepezil at home 5 mg p.o. daily. She also has bladder incontinence and is on Detrol LA. For her hypertension she is on nifedipine. ALLERGIES: The patient has no known allergies. FAMILY HISTORY: Her father had a myocardial infarction. DISPOSITION: The patient is a DNR. The patient's daughter is her surrogate healthcare decision maker. MEDICATIONS: She is on full dose heparin as per PTT intravenously. The patient is on nifedipine 30 mg p.o. daily, aspirin 81 mg p.o. daily. She is on atorvastatin 80 mg p.o. daily. She is on bacitracin zinc 1 application topically daily. She is on cyclobenzaprine 5 mg p.o. at bedtime p.r.n. She is on Fluvax 0.5 mL IM on the day of discharge. She is on Neurontin 300 mg p.o. daily. She is on hydralazine 10 mg IV q.6 hours p.r.n. She is on lisinopril 20 mg p.o. daily. She is on Imodium 4 mg p.o. q.6 hours. She is on magnesium 30 mL p.o. q.4 hours p.r.n. She is on *------* levomefolate calcium/*------* 1 p.o. daily. She is on Seroquel 25 mg p.o. daily. She is on Risperdal 0.25 mg p.o. b.i.d. p.r.n. She is on tolterodine 2 mg p.o. q.12 hours. She is on tramadol 50 mg p.o. q.4 hours. She has also been started on Coumadin at 5 mg p.o. daily. PHYSICAL EXAMINATION: GENERAL: On examination at present the patient is not agitated. She is slightly confused. The patient is of frail build and appears to be chronically ill. She appears to be older than her stated age. VITAL SIGNS: She is afebrile with a temperature of 98.5 degrees Fahrenheit, pulse of 69 beats per minute, blood pressure 127/50, respirations are 18 per minute, O2 saturations are 90% on room air. HEENT: Head is atraumatic, normocephalic. Eyes: Pupils are equal, round and regular, reactive to light and accommodation. Extraocular movements are normal. There is no conjunctival pallor. There is no scleral icterus. Ears: Tympanic membranes are intact, external auditory canals are clear. Nose: There is no deviated nasal septum, there is no inflammation of the nasal mucous membrane. Mouth: Mucous membranes of the mouth are moist. Tongue is moist. There are no ulcers. There is no bleeding from the gums. Throat: There is no redness of the oropharynx. There are no exudates. SKIN: There are no skin rashes. There is no petechiae or ecchymosis. There is no skin lesions. NECK: Supple. There is no JVD. There is no lymphadenopathy. There is no goiter. Carotids are equal. There is no bruit. There is faint transmission of aortic stenosis murmur to both carotids. There is no carotid delay. Trachea is central. (There is a scar of left carotid endarterectomy on the left side over the carotids.) LUNGS: Clear to auscultation and percussion. There is no chest wall tenderness. HEART: S1 and S2 is heard. There is no S3 gallop. There is no S4 gallop. There is a murmur of mild aortic stenosis present, preserved A2. There is no carotid delay. There is no thrill. There is no rub. ABDOMEN: Soft, nontender. There is no hepatosplenomegaly. Bowel sounds are well heard. There are no tender areas or masses. EXTREMITIES: Femorals are diminished. There are no femoral bruits. Leg pulses are diminished. There is no DVT or cellulitis. There is no calf tenderness. CENTRAL NERVOUS SYSTEM: The patient is conscious, confused, but is able to move all 4 extremities. PSYCHIATRIC: The patient does not appear to be agitated. Her affect is withdrawn. DIAGNOSTIC STUDIES: The patient's echocardiogram done on 03/17, shows that there is no obvious cardiac source of emboli. The left ventricle is normal in size. There is normal left ventricular wall thickness. LV ejection fraction is greater than 65%. Left ventricular systolic function is normal. There is normal left ventricular diastolic function. There is mild mitral regurgitation, mild mitral regurgitation, no mitral valve prolapse. There is mild aortic stenosis with a peak gradient of 27 mmHg. There is a mild amount of aortic regurgitation. There is trace amount of tricuspid regurgitation. The right ventricular systolic pressure is normal. Right ventricular systolic pressure is 26 mmHg with an RA mean of 5. There is no pericardial effusion. The patient's MRI, as mentioned earlier, shows a large left occipital infarct and also a small area in the left parietal lobe. Underlying atrophy and microvascular ischemia. Evidence of acute stroke in the left posterior cerebral artery. The patient's chest x-ray is negative. The patient's monitor show paroxysmal atrial fibrillation. The patient's carotid Doppler showed no significant lesions. The patient's EKG done on 03/22, shows atrial fibrillation, LVH by voltage, borderline prolonged QT interval. The patient's EKG done today shows sinus rhythm, early RS transition. Doubt anteroseptal MT. No acute changes. The rhythm is sinus bradycardia. As mentioned earlier initial troponins were within normal limits. Subsequently the patient's troponin I on 03/24, night, is 0.254, 0.179, and 0.125. The patient's sodium is 139.2, potassium 3.6, chloride 108, CO2 is 23. The patient's BUN is 13, creatinine is 0.82, GFR is greater than 60. Glucose is 162, calcium is 8.7. The patient's white count is 7200, hemoglobin is 10.5, hematocrit is 30.2, platelet count is 234,000. The patient's on full dose IV heparin intravenously. The ProTime is 15.3, INR is 1.14, APTT is 31.0. IMPRESSION: 1. We have to assume that this is a non-ST elevation MT. Note that the patient is bradycardic and hence not a candidate for a beta aleks. Would recommend stopping the patient's nifedipine since is has a reputation of coronary steal without a beta aleks. Hence, discontinue nifedipine and switch the patient to amlodipine. Once we check the blood pressure we will start the patient on transdermal nitro. Continue aspirin. Continue heparin until the patient's INR is therapeutic on Coumadin. 2. Paroxysmal atrial fibrillation, most likely the cause of the patient's stroke. 3. CVA with left posterior cerebral artery involvement with left occipital infarct and a small area of left parietal lobe. 4. History of TIAs and CVAs. 5. Peripheral vascular disease, history of left carotid endarterectomy. 6. Hypertension. 7. Dementia. 8. Hyperlipidemia. RECOMMENDATIONS: In view of the patient's mental status and the patient's advanced age, not a candidate for a stress test or a cardiac catheterization or percutaneous revascularization or revascularization by coronary artery bypass graft surgery. It will be in the best interest of the patient to treat her medically aggressively. As mentioned earlier we have started the patient on amlodipine having stopped the Procardia. We will later check the blood pressure and institute topical nitrates in the form of transdermal nitro. Continue aspirin. Continue other medications. This has been discussed with the patient's daughter. The patient will follow up with me in the office. Discussed with the hospitalist taking care of the patient. TIME SPENT: Note 35 minutes spent on this therapy with more than 50% of the time spent on direct patient care, medications have been reviewed and adjusted. Also discussed with the caregiving providers and developed a management plan for this patient. Discussed with the patient's daughter also in detail. Medical decision making in this case of moderate complexity. Will follow with you. DICTATING PHYSICIAN: STEVO ROSS M.D. [id number] PHY#: [id number] ID: [id number] JOB#: [id number] ACCT: [id number] cc:STEVO ROSS M.D. >
[2017-03-25] MEDS: AMLODIPINE BESYLATE 2.5 MG TABLET PO SCH (23:51)
[2017-03-26 05:04] LABS: HEMATOCRIT 29.3 % (36.0-47.0); HEMOGLOBIN 9.7 g/dL (12.0-15.5); MEAN CORPUSCULAR HEMOGLOBIN 28.6 pg (27.0-33.4); MEAN CORPUSCULAR HGB CONC 33.3 g/dL (32.0-36.0); MEAN CORPUSCULAR VOLUME 86 fl (80-97); PLATELET COUNT 296 10^3/uL (150-450); RED CELL DISTRIBUTION WIDTH 12.9 % (11.5-14.0); WHITE BLOOD COUNT 7.4 10^3/uL (4.0-10.5)
[2017-03-26 05:19] LABS: INTERNATIONAL RATION (INR) 1.32; PROTHROMBIN TIME 17.2 SEC (11.4-15.4)
[2017-03-26 05:27] LABS: ANION GAP 6 (5-19); BLOOD UREA NITROGEN 12 mg/dL (7-20); CALCIUM 8.3 mg/dL (8.4-10.2); CARBON DIOXIDE 27 mmol/L (22-30); CHLORIDE 109 mmol/L (98-107); CREATINE KINASE 59 U/L (30-135); GLUCOSE 95 mg/dL (75-110); POTASSIUM 3.6 mmol/L (3.6-5.0); SODIUM 142.3 mmol/L (137-145)
[2017-03-26 05:36] LABS: CREATINE KINASE MB 0.42 ng/mL (<4.55); TROPONIN I 0.08 ng/mL
[2017-03-26] MEDS: HYDRALAZINE HCL INJ/PF 20 MG/1 ML SDV IV PRN ×2 (06:15→20:32)
[2017-03-26] MEDS: HEPARIN SODIUM,PORCINE/D5W 25,000 UNIT/250 ML RTUINJ IV PRN (08:25)
[2017-03-26] MEDS: HEPARIN SOD (PORCINE) 1,000 UNIT/ML 10 ML VIAL IV PRN (08:48)
[2017-03-26] MEDS: LISINOPRIL 10 MG TABLET PO SCH (09:59)
[2017-03-26] MEDS: AMLODIPINE BESYLATE 2.5 MG TABLET PO SCH ×2 (09:59→22:44)
[2017-03-26] MEDS: ASPIRIN 81 MG TABLET, ENT COATED PO SCH (09:59)
[2017-03-26] MEDS: BACITRACIN ZINC OINTMENT 15 GM TP SCH (10:10)
--- NOTE | 2017-03-26 10:45 | PDOC PROGRESS REPORT ---
Subjective Progress Note for:: 03/26/17 Subjective:: The daughter reports that the patient complained of chest pain last night. Patient currently is sleeping Reason For Visit: CVA HTN Physical Exam Vital Signs: Temp Pulse Resp BP Pulse Ox 98.5 F 67 20 145/45 H 97 03/26/17 07:15 03/26/17 07:15 03/26/17 07:15 03/26/17 07:15 03/26/17 07:15 Intake & Output 03/25/17 03/26/17 03/27/17 06:59 06:59 06:59 Intake Total 903 1164 Output Total 500 Balance 403 1164 Weight 72.6 kg General appearance: PRESENT: no acute distress Eye exam: PRESENT: conjunctiva pink. ABSENT: scleral icterus Neck exam: ABSENT: JVD Respiratory exam: PRESENT: clear to auscultation sara. ABSENT: rales, rhonchi, wheezes Cardiovascular exam: PRESENT: RRR. ABSENT: diastolic murmur, rubs, systolic murmur GI/Abdominal exam: PRESENT: normal bowel sounds, soft. ABSENT: distended, guarding, mass, organolmegaly, rebound, tenderness Results Laboratory Results: 03/26/17 04:26 03/26/17 04:26 03/26/17 03/26/17 04:26 04:26 WBC 7.4 RBC 3.40 L Hgb 9.7 L Hct 29.3 L MCV 86 MCH 28.6 MCHC 33.3 RDW 12.9 Plt Count 296 Sodium 142.3 Potassium 3.6 Chloride 109 H Carbon Dioxide 27 Anion Gap 6 BUN 12 Creatinine 0.76 Est GFR ( Amer) > 60 Est GFR (Non-Af Amer) > 60 Glucose 95 Calcium 8.3 L 03/16/17 03/16/17 03/16/17 02:17 02:17 08:03 Creatine Kinase 100 CK-MB (CK-2) 1.25 0.88 Troponin I 0.017 0.018 03/16/17 03/24/17 03/25/17 22:00 21:35 03:26 Creatine Kinase CK-MB (CK-2) 0.72 Troponin I < 0.012 0.254 0.179 03/25/17 03/25/17 03/25/17 10:55 22:48 22:48 Creatine Kinase 76 CK-MB (CK-2) 0.75 Troponin I 0.125 0.087 03/26/17 03/26/17 04:26 04:26 Creatine Kinase 59 CK-MB (CK-2) 0.42 Troponin I 0.080 Impressions: Carotid Doppler Study 03/16/17 10:05 IMPRESSION: NO HEMODYNAMICALLY SIGNIFICANT STENOSIS. Head MRI 03/16/17 10:05 IMPRESSION: Large area of acute infarction in the left occipital lobe with a tiny area in the left parietal lobe. Underlying atrophy and microvascular ischemia. 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 Redemonstrated region of subacute ischemic change in the left occipital lobe compatible left INSTRUCTOR MILITARY SCIENCE distribution infarction with mild effacement of the adjacent sulcal spaces and no significant midline shift, hemorrhage, or downward herniation This exam was performed according to our departmental dose-optimization program, which includes automated exposure control, adjustment of the mA and/or kV according to patient size and/or use of iterative reconstruction technique. Modified Barium Swallow 03/19/17 00:00 IMPRESSION: NO EVIDENCE OF PENETRATION OR ASPIRATION.PLEASE SEE SPEECH PATHOLOGIST REPORT FOR OTHER FINDINGS AND RECOMMENDATIONS. Chest X-Ray 03/19/17 03:29 IMPRESSION: 1. No acute pulmonary process identified. Assessment & Plan - Diagnosis (1) Visual field defects Is this a current diagnosis for this admission?: Yes Plan: Secondary to CVA. 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 Continue with aspirin and Coumadin. (3) Hyperlipidemia Is this a current diagnosis for this admission?: Yes Plan: Continue with Lipitor. (4) Dementia Qualifiers: Dementia type: Alzheimer's disease Is this a current diagnosis for this admission?: Yes (5) Hypertension Qualifiers: Hypertension type: essential hypertension Qualified Code(s): I10 - Essential (primary) hypertension Is this a current diagnosis for this admission?: Yes Plan: Continue with Norvasc. (6) Peripheral vascular disease Is this a current diagnosis for this admission?: Yes (7) Non-STEMI (non-ST elevated myocardial infarction) Is this a current diagnosis for this admission?: Yes Plan: She had chest pain last night however. She has elevated troponin suggestive of a non-STEMI. Cardiology has evaluated the patient. - Time Time Spent with patient: 25-34 minutes - Inpatient Certification Medical Necessity: Need Close Monitoring Due to Risk of Patient Decompensation
[2017-03-26 11:32] LABS: CREATINE KINASE MB 0.36 ng/mL (<4.55); TROPONIN I 0.072 ng/mL
[2017-03-26 15:22] LABS: APPEARANCE,URINE SLIGHTLY-CLOUDY; BILIRUBIN,URINE NEGATIVE (NEGATIVE); COLOR,URINE YELLOW; GLUCOSE, URINE NEGATIVE (NEGATIVE); KETONES,URINE NEGATIVE (NEGATIVE); LEUKOCYTE ESTERASE,URINE NEGATIVE (NEGATIVE); NITRITE,URINE POSITIVE (NEGATIVE); PROTEIN,URINE NEGATIVE (NEGATIVE); URINE SPECIFIC GRAVITY 1.012; UROBILINOGEN,URINE NEGATIVE mg/dL (<2.0)
[2017-03-26] MEDS: GABAPENTIN 300 MG CAPSULE PO SCH (18:08)
[2017-03-26] MEDS: QUETIAPINE FUMARATE 25 MG TABLET PO SCH (19:36)
[2017-03-26] MEDS: WARFARIN SODIUM 5 MG TABLET PO SCH (19:36)
[2017-03-26] MEDS: ATORVASTATIN CALCIUM 80 MG TABLET PO SCH (19:36)
[2017-03-26] MEDS: RISPERIDONE 0.25 MG TABLET PO PRN (21:35)
--- NOTE | 2017-03-26 22:29 | PROGRESS NOTE E ---
Progress Note NAME: LOUANN ROACH : 1935 AGE: 81Y DATE: 03/26/2017 ROOM: 317 SUBJECTIVE: Note that the patient is not able to give a history due to dementia. As per the daughter, the patient this morning was gesturing that she was having chest pain. This lasted for about an hour. At present the patient appears to be comfortable. There are no arrhythmias on the monitor. There is no PND or orthopnea. The patient does not appear to be short of breath. There are no further new CVA symptoms. There is no dizziness or syncope. OBJECTIVE: On examination, the patient is confused. The patient is of frail build and appears to be chronically ill. She appears to be older than her stated age. She is afebrile with a temperature of 98.3 degrees Fahrenheit. Pulse is 70 beats per minute. Blood pressure 168/53. Respirations are 18/min. O2 sats are 98% on 2 L nasal cannula. Head is atraumatic, normocephalic. Eyes: Pupils are equal, round, regular, reactive to light and accommodation. Extraocular movements are normal. There is no conjunctival pallor. There is no scleral icterus. ENT is negative. Skin: There are no skin rashes. There are no petechiae or ecchymosis. There are no skin lesions. Neck is supple. There is no JVD. There is no lymphadenopathy. There is no goiter. Carotids are equal. There is no bruit. There is faint transmission of aortic stenosis murmur to both carotids. There is no carotid delay. Trachea is central. There is a scar of left carotid endarterectomy on the left side over the carotid. Lungs are clear to auscultation and percussion. There is no chest-wall tenderness. S1/S2 heard. There is no S3 gallop. There is no S4 gallop. There is a murmur of mild aortic stenosis present with preserved A2. There is no carotid delay. There is no thrill. There is no rub. Abdomen is soft, nontender. There is no hepatosplenomegaly. Bowel sounds are well heard. There are no tender areas or masses. Extremities: Femorals are diminished. There are no femoral bruits. Leg pulses are diminished. There is no DVT or cellulitis. There is no calf tenderness. Central nervous system: The patient is conscious, awake, alert but confused, but is able to move all four extremities. Psychiatric: The patient does not appear to be agitated. Affect is slightly withdrawn. The patient's sodium is 142.3, potassium 3.6, chloride 109, CO2 is 27. The patient's BUN is 12, creatinine 0.76, GFR is greater than 60. Her troponin I has come down to 0.080 and 0.072. Her CPK-MB is negative at 0.42 and 0.36. CPK is negative at 59 and 58. The patient's white count is 7400, hemoglobin 9.7, hematocrit is 29.3, and her platelet count is 296,000. Note that today the patient remained in sinus rhythm with no recurrence of atrial fibrillation. ASSESSMENT: 1. [id number] NV. AT PRESENT THE PATIENT IS STABLE. EARLIER THE PATIENT'S DAUGHTER STATED THAT THE PATIENT WAS HAVING SOME DIFFICULTY WITH CHEST PAIN, BUT THE PATIENT AT PRESENT SEEMS TO BE FINE, AND THE TROPONIN I IS TRENDING DOWN. Will repeat an EKG and troponin I in the morning. Also will add Nitro-Dur 0.2 mg/hour to chest wall from tomorrow morning. 2. PAROXYSMAL ATRIAL FIBRILLATION. Note that the patient is on a heparin drip. The patient is also on Coumadin. The patient's PTT is 52.3. The patient's BUN is 17.2. Her INR is 1.32. The INR is going up. Hopefully we can stop the heparin once the patient is therapeutic with the INR of greater than 2 and between 2 and 3 on Coumadin. 3. CVA WITH LEFT POSTERIOR CEREBRAL ARTERY INVOLVEMENT, WITH LEFT OCCIPITAL INFARCT AND SMALL AREA OF THE LEFT PARIETAL LOBE. 4. HISTORY OF TIAS AND CVAS. 5. CEREBROVASCULAR DISEASE WITH HISTORY OF LEFT CAROTID ENDARTERECTOMY. 6. HYPERTENSION. 7. DEMENTIA. 8. HYPERLIPIDEMIA. RECOMMENDATION: As mentioned earlier, continue the patient on atorvastatin, aspirin, and amlodipine. Will add nitrates in the morning. Continue lisinopril. Also would continue the patient's antipsychiatric medication. In view of the patient's heart rate being on the lower side, will not use a beta aleks at present. Note that today heart rate has come up to 70. If this persists, then would try a small dose of beta aelks, but the patient's heart rate tends to be in the low 60s. Note that the patient is DNR, and the patient's daughter is her surrogate healthcare decision maker. Note, 30 minutes spent on the patient with more than 50% of the time spent in direct patient care. Also discussed the case with the patient's daughter, who is the surrogate healthcare decision maker also. Discussed the care plan and medication adjustment with the other providers on the case. Note, in view of the patient's dementia, the patient's troponin I being elevated, and no major EKG changes, the medical decision making is still of high complexity. Will follow with you. Will start the patient on nitrates in the a.m. DICTATING PHYSICIAN: STEVO ROSS M.D. [id number] PEE#: [id number] ID: [id number] JOB#: [id number] ACCT: [id number] cc: >
[2017-03-27] MEDS: HYDRALAZINE HCL INJ/PF 20 MG/1 ML SDV IV PRN (05:58)
[2017-03-27 06:14] LABS: INTERNATIONAL RATION (INR) 1.63; PROTHROMBIN TIME 20.3 SEC (11.4-15.4)
[2017-03-27 06:16] LABS: PARTIAL THROMBOPLASTIN TIME 115.9 SEC (23.5-35.8)
[2017-03-27] MEDS: ASPIRIN 81 MG TABLET, ENT COATED PO SCH (10:47)
[2017-03-27] MEDS: NITROGLYCERIN 5 MG (0.2 MG/HR) PATCH.TD24 TD SCH (10:47)
[2017-03-27] MEDS: LISINOPRIL 10 MG TABLET PO SCH (10:47)
[2017-03-27] MEDS: AMLODIPINE BESYLATE 2.5 MG TABLET PO SCH ×2 (10:47→22:35)
[2017-03-27] MEDS: HEPARIN SODIUM,PORCINE/D5W 25,000 UNIT/250 ML RTUINJ IV PRN (11:41)
[2017-03-27] MEDS: HEPARIN SOD (PORCINE) 1,000 UNIT/ML 10 ML VIAL IV PRN (13:00)
--- NOTE | 2017-03-27 13:35 | PDOC PROGRESS REPORT ---
Subjective Progress Note for:: 03/27/17 Subjective:: Denies any complaints. Reason For Visit: CVA HTN Physical Exam Vital Signs: Temp Pulse Resp BP Pulse Ox 98.9 F 56 L 17 141/55 H 96 03/27/17 08:27 03/27/17 08:27 03/27/17 08:27 03/27/17 08:27 03/27/17 08:27 Intake & Output 03/26/17 03/27/17 03/28/17 06:59 06:59 06:59 Intake Total 1164 878 Output Total 400 Balance 1164 478 Weight 71 kg General appearance: PRESENT: no acute distress Eye exam: PRESENT: conjunctiva pink. ABSENT: scleral icterus Mouth exam: PRESENT: moist, tongue midline Neck exam: ABSENT: JVD Respiratory exam: PRESENT: clear to auscultation sara. ABSENT: rales, rhonchi, wheezes Cardiovascular exam: PRESENT: irregular rhythm. ABSENT: diastolic murmur, rubs , systolic murmur GI/Abdominal exam: PRESENT: normal bowel sounds, soft. ABSENT: distended, guarding, mass, organolmegaly, rebound, tenderness Extremities exam: ABSENT: calf tenderness, clubbing, pedal edema Neurological exam: PRESENT: alert, awake, oriented to person, oriented to place , CN II-XII grossly intact. ABSENT: oriented to time, oriented to situation Psychiatric exam: PRESENT: appropriate affect Skin exam: PRESENT: dry, intact, warm. ABSENT: cyanosis, rash Results Laboratory Results: 03/26/17 04:26 03/26/17 04:26 03/26/17 12:20 Urine Color YELLOW Urine Appearance SLIGHTLY-CLOUDY Urine pH 5.0 Ur Specific [place] 1.012 Urine Protein NEGATIVE Urine Glucose (UA) NEGATIVE Urine Ketones NEGATIVE Urine Blood SMALL H Urine Nitrite POSITIVE H Ur Leukocyte Esterase NEGATIVE Urine WBC (Auto) 20 Urine RBC (Auto) 1 03/16/17 03/16/17 03/16/17 02:17 02:17 08:03 Creatine Kinase 100 CK-MB (CK-2) 1.25 0.88 Troponin I 0.017 0.018 03/16/17 03/24/17 03/25/17 22:00 21:35 03:26 Creatine Kinase CK-MB (CK-2) 0.72 Troponin I < 0.012 0.254 0.179 03/25/17 03/25/17 03/25/17 10:55 22:48 22:48 Creatine Kinase 76 CK-MB (CK-2) 0.75 Troponin I 0.125 0.087 03/26/17 03/26/17 03/26/17 04:26 04:26 10:48 Creatine Kinase 59 58 CK-MB (CK-2) 0.42 Troponin I 0.080 03/26/17 03/27/17 10:48 05:48 Creatine Kinase CK-MB (CK-2) 0.36 Troponin I 0.072 0.044 Impressions: Carotid Doppler Study 03/16/17 10:05 IMPRESSION: NO HEMODYNAMICALLY SIGNIFICANT STENOSIS. Head MRI 03/16/17 10:05 IMPRESSION: Large area of acute infarction in the left occipital lobe with a tiny area in the left parietal lobe. Underlying atrophy and microvascular ischemia. 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 Redemonstrated region of subacute ischemic change in the left occipital lobe compatible left DREDGE PUMP OPERATOR distribution infarction with mild effacement of the adjacent sulcal spaces and no significant midline shift, hemorrhage, or downward herniation This exam was performed according to our departmental dose-optimization program, which includes automated exposure control, adjustment of the mA and/or kV according to patient size and/or use of iterative reconstruction technique. Modified Barium Swallow 03/19/17 00:00 IMPRESSION: NO EVIDENCE OF PENETRATION OR ASPIRATION.PLEASE SEE SPEECH PATHOLOGIST REPORT FOR OTHER FINDINGS AND RECOMMENDATIONS. Chest X-Ray 03/19/17 03:29 IMPRESSION: 1. No acute pulmonary process identified. Assessment & Plan - Diagnosis (1) Visual field defects Is this a current diagnosis for this admission?: Yes Plan: Secondary to CVA. 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 Continue with aspirin and Coumadin. (3) Hyperlipidemia Is this a current diagnosis for this admission?: Yes Plan: Continue with Lipitor. (4) Dementia Qualifiers: Dementia type: Alzheimer's disease Is this a current diagnosis for this admission?: Yes (5) Hypertension Qualifiers: Hypertension type: essential hypertension Qualified Code(s): I10 - Essential (primary) hypertension Is this a current diagnosis for this admission?: Yes Plan: Continue with Norvasc and lisinopril. Will have nursing check orthostatics every shift. (6) Peripheral vascular disease Is this a current diagnosis for this admission?: Yes (7) Non-STEMI (non-ST elevated myocardial infarction) Is this a current diagnosis for this admission?: Yes Plan: She has elevated troponin suggestive of a non-STEMI. Cardiology has evaluated the patient. (8) Afib Qualifiers: Atrial fibrillation type: paroxysmal Qualified Code(s): I48.0 - Paroxysmal atrial fibrillation Is this a current diagnosis for this admission?: Yes Plan: Patient is rate control. Continue with the Coumadin. - Time Time Spent with patient: 25-34 minutes - Inpatient Certification Medical Necessity: Need Close Monitoring Due to Risk of Patient Decompensation
--- NOTE | 2017-03-27 16:42 | EKG REPORT ---
SEVERITY:- ABNORMAL ECG - SINUS RHYTHM CONSIDER ANTEROSEPTAL INFARCT : Confirmed by: Remberto Rodriguez 27-Mar-2017 16:41:41
[2017-03-27] MEDS: LACTULOSE SYRUP 20 GM/30 ML UDCUP PO PRN (17:28)
[2017-03-27] MEDS: QUETIAPINE FUMARATE 25 MG TABLET PO SCH (19:41)
[2017-03-27] MEDS: RISPERIDONE 0.25 MG TABLET PO PRN (19:41)
[2017-03-27] MEDS: WARFARIN SODIUM 5 MG TABLET PO SCH (19:41)
[2017-03-27] MEDS: GABAPENTIN 300 MG CAPSULE PO SCH (19:41)
[2017-03-27] MEDS: ATORVASTATIN CALCIUM 80 MG TABLET PO SCH (19:41)
--- NOTE | 2017-03-27 22:39 | PROGRESS NOTE E ---
Progress Note NAME: LOUANN ROACH : 1935 AGE: 81Y DATE: 03/27/2017 ROOM: 317 SUBJECTIVE: The patient appears to be calm and sitting down. As per her daughter, she had no further problems, no further chest pains. The patient is tolerating her nitrates, and her blood pressure is stable. There is no arrhythmia seen on the monitor. There is no PND or orthopnea. There is no shortness of breath. There is no leg edema, as per the daughter. OBJECTIVE: GENERAL: On examination, the patient is confused. The patient is of frail build, appears to be chronically ill. She appears to be older than her stated age. VITAL SIGNS: She is afebrile with a temperature of 98 degrees Fahrenheit. Pulse is 70 beats per minute. Blood pressure is 129/48. Respirations are 15/min. O2 sats are 99% on room air. HEAD: Atraumatic, normocephalic. EYES: Pupils are equal, round, regular, reactive to light and accommodation. Extraocular movements are normal. There is no conjunctival pallor. There is no scleral icterus. ENT: Negative. SKIN: There are no skin rashes. There are no petechiae or ecchymosis. There are no skin lesions. NECK: Supple. There is no JVD. Carotids are equal. There is no bruit. There is faint transmission of aortic stenosis murmur to both carotids. There is no carotid delay. Trachea is central. There is a scar of left carotid endarterectomy on the left side over the carotid. LUNGS: Clear to auscultation and percussion. There is no chest-wall tenderness. HEART: S1/S2 heard. There is no S3 gallop. There is no S4 gallop. There is a systolic murmur at the left sternal border and apex. There is mild aortic stenosis present with preserved A2. There is no carotid delay. There is no thrill. There is no rub. ABDOMEN: Soft, nontender. There is no hepatosplenomegaly. Bowel sounds are well heard. There are no tender areas or masses. EXTREMITIES: Femorals are diminished. There are no femoral bruits. Leg pulses are diminished. There is no DVT or cellulitis. There is no calf tenderness. There is no pedal edema. CENTRAL NERVOUS SYSTEM: The patient is conscious, awake, alert, but confused, but is able to move all four extremities. PSYCHIATRIC: The patient does not appear to be agitated. Affect is slightly withdrawn. DIAGNOSTIC STUDIES: The patient's EKG shows sinus rhythm. *------* anteroseptal infarct. Doubt that this is an anteroseptal infarct, probably secondary to lead placement causing poor R waves in V1 and V2. The patient's troponin-I has come down to 0.044. IMPRESSION: 1. [id number] NC. AT PRESENT THE PATIENT IS STABLE. Earlier the patient's daughter stated that patient is having some difficulty with chest pain; this has resolved. The patient yesterday and today has not had any chest pains. The patient will continue with Nitro-Dur. 2. PAROXYSMAL ATRIAL FIBRILLATION. At present the patient is on heparin drip. The patient is also on Coumadin. The patient's PTT is 110.3, the patient's protime is 20.3, INR is 1.63. Would recommend to continue the heparin until the INR is 2.5, and then subsequently stop the heparin drip and repeat the patient's PT/PTT and INR in 6 hours after stopping the heparin drip. 3. CVA WITH LEFT POSTERIOR CEREBRAL ARTERY INVOLVEMENT WITH LEFT OCCIPITAL INFARCT, A SMALL AREA OF THE LEFT PARIETAL LOBE INFARCT. 4. HISTORY OF TIAS AND CVAS. 5. CEREBROVASCULAR DISEASE WITH HISTORY OF LEFT CAROTID ENDARTERECTOMY. 6. RECENT CAROTID DOPPLER SHOWED THAT THERE ARE NO HEMODYNAMICALLY SIGNIFICANT LESIONS. 7. HYPERTENSION. 8. DEMENTIA. 9. HYPERLIPIDEMIA. 10. AORTIC STENOSIS WHICH IS MILD. PLAN: As mentioned earlier, discussed with the patient's daughter, the patient appears to be comfortable. Will continue the patient on Nitro-Dur. Continue the patient's heparin until the patient's INR is therapeutic on Coumadin. Continue the patient on amlodipine at 2.5 mg p.o. q. 12 hours. Continue aspirin. Continue lisinopril at 20 mg p.o. daily. The patient's blood pressure is controlled. Continue on her antipsychiatric medications. Note, 25 minutes spent with the patient, more than 50% of the time spent in direct patient care. The case was discussed in detail with the patient's daughter, and also the plan of care was discussed with her other attending physicians on the case. They formulated a plan of management of the patient. Note, medical decision making is of moderate complexity. The patient at present is without any chest pains. Will follow with you. DICTATING PHYSICIAN: STEVO ROSS M.D. [id number] TYLERY#: [id number] ID: [id number] JOB#: [id number] ACCT: [id number] cc: >
[2017-03-28 01:59] LABS: HEMOGLOBIN 9.7 g/dL (12.0-15.5); MEAN CORPUSCULAR HEMOGLOBIN 28.9 pg (27.0-33.4); MEAN CORPUSCULAR HGB CONC 33.5 g/dL (32.0-36.0); MEAN CORPUSCULAR VOLUME 86 fl (80-97); PLATELET COUNT 342 10^3/uL (150-450); RED BLOOD COUNT 3.36 10^6/uL (3.72-5.28); RED CELL DISTRIBUTION WIDTH 13.2 % (11.5-14.0); WHITE BLOOD COUNT 6.3 10^3/uL (4.0-10.5)
[2017-03-28 02:06] LABS: INTERNATIONAL RATION (INR) 1.97; PROTHROMBIN TIME 23.5 SEC (11.4-15.4)
[2017-03-28 02:08] LABS: PARTIAL THROMBOPLASTIN TIME 99.8 SEC (23.5-35.8)
[2017-03-28 02:28] LABS: ANION GAP 5 (5-19); BLOOD UREA NITROGEN 11 mg/dL (7-20); CALCIUM 8.8 mg/dL (8.4-10.2); CARBON DIOXIDE 28 mmol/L (22-30); CHLORIDE 108 mmol/L (98-107); GLUCOSE 127 mg/dL (75-110); POTASSIUM 3.7 mmol/L (3.6-5.0); SODIUM 140.5 mmol/L (137-145)
[2017-03-28] MEDS: LISINOPRIL 10 MG TABLET PO SCH (09:03)
[2017-03-28] MEDS: NITROGLYCERIN 5 MG (0.2 MG/HR) PATCH.TD24 TD SCH (09:03)
[2017-03-28] MEDS: AMLODIPINE BESYLATE 2.5 MG TABLET PO SCH (09:03)
[2017-03-28] MEDS: ASPIRIN 81 MG TABLET, ENT COATED PO SCH (09:03)
[2017-03-28 11:21] LABS: APPEARANCE,URINE SLIGHTLY-CLOUDY; BILIRUBIN,URINE NEGATIVE (NEGATIVE); COLOR,URINE YELLOW; GLUCOSE, URINE NEGATIVE (NEGATIVE); KETONES,URINE NEGATIVE (NEGATIVE); LEUKOCYTE ESTERASE,URINE LARGE (NEGATIVE); NITRITE,URINE NEGATIVE (NEGATIVE); PROTEIN,URINE NEGATIVE (NEGATIVE); URINE SPECIFIC GRAVITY 1.009; UROBILINOGEN,URINE NEGATIVE mg/dL (<2.0)
--- NOTE | 2017-03-28 13:36 | PDOC PROGRESS REPORT ---
Subjective Progress Note for:: 03/28/17 Subjective:: Denies any complaints. Reason For Visit: CVA HTN Physical Exam Vital Signs: Temp Pulse Resp BP Pulse Ox 98.6 F 70 18 146/63 H 97 03/28/17 12:39 03/28/17 12:39 03/28/17 12:39 03/28/17 12:39 03/28/17 12:39 Intake & Output 03/27/17 03/28/17 03/29/17 06:59 06:59 06:59 Intake Total 878 894 300 Output Total 400 900 Balance 478 894 -600 Weight 71 kg 69 kg General appearance: PRESENT: no acute distress Eye exam: PRESENT: conjunctiva pink. ABSENT: scleral icterus Mouth exam: PRESENT: moist, tongue midline Neck exam: ABSENT: JVD Respiratory exam: PRESENT: clear to auscultation sara. ABSENT: rales, rhonchi, wheezes Cardiovascular exam: PRESENT: RRR. ABSENT: diastolic murmur, rubs, systolic murmur GI/Abdominal exam: PRESENT: normal bowel sounds, soft. ABSENT: distended, guarding, mass, organolmegaly, rebound, tenderness Extremities exam: ABSENT: calf tenderness, clubbing, pedal edema Neurological exam: PRESENT: alert, awake, oriented to person, oriented to place , CN II-XII grossly intact. ABSENT: oriented to time, oriented to situation, motor sensory deficit Psychiatric exam: PRESENT: appropriate affect Skin exam: PRESENT: dry, intact, warm. ABSENT: cyanosis, rash Results Laboratory Results: 03/28/17 01:50 03/28/17 01:50 03/28/17 03/28/17 03/28/17 01:50 01:50 11:00 WBC 6.3 RBC 3.36 L Hgb 9.7 L Hct 29.0 L MCV 86 MCH 28.9 MCHC 33.5 RDW 13.2 Plt Count 342 Sodium 140.5 Potassium 3.7 Chloride 108 H Carbon Dioxide 28 Anion Gap 5 BUN 11 Creatinine 0.73 Est GFR ( Amer) > 60 Est GFR (Non-Af Amer) > 60 Glucose 127 H Calcium 8.8 Urine Color YELLOW Urine Appearance SLIGHTLY-CLOUDY Urine pH 6.0 Ur Specific [place] 1.009 Urine Protein NEGATIVE Urine Glucose (UA) NEGATIVE Urine Ketones NEGATIVE Urine Blood SMALL H Urine Nitrite NEGATIVE Ur Leukocyte Esterase LARGE H Urine WBC (Auto) 84 Urine RBC (Auto) 1 03/16/17 03/16/17 03/16/17 02:17 02:17 08:03 Creatine Kinase 100 CK-MB (CK-2) 1.25 0.88 Troponin I 0.017 0.018 03/16/17 03/24/17 03/25/17 22:00 21:35 03:26 Creatine Kinase CK-MB (CK-2) 0.72 Troponin I < 0.012 0.254 0.179 03/25/17 03/25/17 03/25/17 10:55 22:48 22:48 Creatine Kinase 76 CK-MB (CK-2) 0.75 Troponin I 0.125 0.087 03/26/17 03/26/17 03/26/17 04:26 04:26 10:48 Creatine Kinase 59 58 CK-MB (CK-2) 0.42 Troponin I 0.080 03/26/17 03/27/17 10:48 05:48 Creatine Kinase CK-MB (CK-2) 0.36 Troponin I 0.072 0.044 Impressions: Carotid Doppler Study 03/16/17 10:05 IMPRESSION: NO HEMODYNAMICALLY SIGNIFICANT STENOSIS. Head MRI 03/16/17 10:05 IMPRESSION: Large area of acute infarction in the left occipital lobe with a tiny area in the left parietal lobe. Underlying atrophy and microvascular ischemia. 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 Redemonstrated region of subacute ischemic change in the left occipital lobe compatible left COMMERCIAL ENERGY AUDITOR distribution infarction with mild effacement of the adjacent sulcal spaces and no significant midline shift, hemorrhage, or downward herniation This exam was performed according to our departmental dose-optimization program, which includes automated exposure control, adjustment of the mA and/or kV according to patient size and/or use of iterative reconstruction technique. Modified Barium Swallow 03/19/17 00:00 IMPRESSION: NO EVIDENCE OF PENETRATION OR ASPIRATION.PLEASE SEE SPEECH PATHOLOGIST REPORT FOR OTHER FINDINGS AND RECOMMENDATIONS. Chest X-Ray 03/19/17 03:29 IMPRESSION: 1. No acute pulmonary process identified. Assessment & Plan - Diagnosis (1) Visual field defects Is this a current diagnosis for this admission?: Yes Plan: Secondary to CVA. 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 Continue with aspirin and Coumadin. (3) Hyperlipidemia Is this a current diagnosis for this admission?: Yes Plan: Continue with Lipitor. (4) Dementia Qualifiers: Dementia type: Alzheimer's disease Is this a current diagnosis for this admission?: Yes (5) Hypertension Qualifiers: Hypertension type: essential hypertension Qualified Code(s): I10 - Essential (primary) hypertension Is this a current diagnosis for this admission?: Yes Plan: Continue with Norvasc and lisinopril. Will have nursing check orthostatics every shift. (6) Peripheral vascular disease Is this a current diagnosis for this admission?: Yes (7) Non-STEMI (non-ST elevated myocardial infarction) Is this a current diagnosis for this admission?: Yes Plan: She has elevated troponin suggestive of a non-STEMI. Cardiology has evaluated the patient. (8) Afib Qualifiers: Atrial fibrillation type: paroxysmal Qualified Code(s): I48.0 - Paroxysmal atrial fibrillation Is this a current diagnosis for this admission?: Yes Plan: Patient is rate control. Continue with the Coumadin. (9) Anemia Is this a current diagnosis for this admission?: Yes Plan: Stable - Time Time Spent with patient: 25-34 minutes - Inpatient Certification Medical Necessity: Need Close Monitoring Due to Risk of Patient Decompensation
[2017-03-28] MEDS: LACTULOSE SYRUP 20 GM/30 ML UDCUP PO PRN (15:12)
[2017-03-28] MEDS: HEPARIN SODIUM,PORCINE/D5W 25,000 UNIT/250 ML RTUINJ IV PRN (19:03)
[2017-03-28] MEDS ORDERED: AMLODIPINE BESYLATE 2.5 MG TABLET PO SCH (21:05)
[2017-03-28] MEDS: ATORVASTATIN CALCIUM 80 MG TABLET PO SCH (21:09)
[2017-03-28] MEDS: GABAPENTIN 300 MG CAPSULE PO SCH (21:09)
[2017-03-28] MEDS: WARFARIN SODIUM 5 MG TABLET PO SCH (21:10)
[2017-03-28] MEDS: QUETIAPINE FUMARATE 25 MG TABLET PO SCH (21:10)
[2017-03-28] MEDS: RISPERIDONE 0.25 MG TABLET PO PRN (21:11)
--- NOTE | 2017-03-28 22:34 | PROGRESS NOTE E ---
Progress Note NAME: LOUANN ROACH : 1935 AGE: 81Y DATE: 03/28/2017 ROOM: 317 SUBJECTIVE: Note that the patient appears to be pleasantly confused and is cheerful. As per the daughter there are no issues regarding chest pain or recurrence of atrial fibrillation of the patient. The patient remains in sinus rhythm. The patient does not appear to be short of breath. There is no pedal edema. There is no dizziness or syncope. There is no extension or new CVA symptoms. OBJECTIVE: GENERAL: On examination the patient is of frail build and looks slightly older than her stated age. VITAL SIGNS: She is afebrile with a temperature of 98.2 degrees Fahrenheit, pulse is 63 beats per minute, blood pressure 172/53, respirations are 20 per minute, O2 saturations are 92% on room air. HEENT: Head is atraumatic, normocephalic. EYES: Pupils are equal, round, regular, reactive to light and accommodation. Extraocular movements are normal. There is no conjunctival pallor. There is no scleral icterus. ENT: Negative. NECK: Supple. There is no JVD. Carotids are equal. There is a transmitted murmur over the carotid from the aortic area. There is no carotid delay. There is no thyromegaly. There is no goiter. There is no lymphadenopathy. Trachea is central. SKIN: Shows no petechiae or ecchymosis. There is no skin lesion or skin rashes. LUNGS: Clear to auscultation and percussion. There is no chest wall tenderness. HEART: S1, S2 is heard. There is no S3 gallop. There is no S4 gallop. There is a systolic murmur of mild aortic stenosis present. A2 is preserved. There is no carotid delay. There is no rub. ABDOMEN: Soft, nontender. There is no hepatosplenomegaly. Bowel sounds are well heard. EXTREMITIES: Femorals are slightly diminished. There are no femoral bruits. Leg pulses are diminished. There is no DVT or cellulitis. There is no calf tenderness. There is no pedal edema. CENTRAL NERVOUS SYSTEM: The patient is conscious, awake, alert but confused, but moves all 4 extremities. PSYCHIATRIC: The patient is confused and psych exam not done. DIAGNOSTIC STUDIES: The patient's white count is 6300, hemoglobin is 9.7, hematocrit is 29, platelet count is 324,000. The patient's sodium is 140.5, potassium 3.7, chloride 108, CO2 is 28. The patient's BUN is 11, creatinine is 0.73, GFR is greater than 60. The patient's glucose is 127, her calcium is 8.8. IMPRESSION: 1. [id number] MS. Troponin I has trended down. The patient without symptoms. 2. PAROXYSMAL ATRIAL FIBRILLATION. The patient with a recent stroke is on full dose heparin and is also on anticoagulation. Note that the patient's ProTime is 23.5, INR is 1.97. Her PTT is 99.8. Continue heparin until the INR with Coumadin is 2.5 or above and then stop the heparin. Repeat PTT, INR in 6 hours after stopping the heparin to make sure that the patient is therapeutic. 3. HYPERTENSION. Blood pressure is still elevated. We will increase the patient's Norvasc to 5 mg p.o. q.12 hours. 4. 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 5. HISTORY OF TIAs AND CVAs. 6. DEMENTIA, SIGNIFICANT. 7. HYPERLIPIDEMIA. 8. MILD AORTIC STENOSIS. As mentioned earlier. *------* Medications have been reviewed and medications adjusted. Norvasc has been increased to 5 mg p.o. q.12 hours. Continue aspirin. Continue the patient on heparin until therapeutic INR is achieved with Coumadin as mentioned earlier. TIME SPENT: Note 25 minutes spent on this patient with more than 50% of the time spent on direct patient care. Discussed with the patient's daughter. Note medical decision making is of high complexity. In view of the need to increase the patient's medication, blood pressure not being well-controlled. We will follow with you. DICTATING PHYSICIAN: STEVO ROSS M.D. [id number] PHY#: [id number] ID: [id number] JOB#: [id number] ACCT: [id number] cc: >
[2017-03-29] MEDS: AMLODIPINE BESYLATE 5 MG TABLET PO SCH ×3 (01:56→23:42)
--- NOTE | 2017-03-29 10:11 | PDOC PROGRESS REPORT ---
Subjective Progress Note for:: 03/29/17 Subjective:: Patient was sleeping soundly the time my exam. Reason For Visit: CVA HTN Physical Exam Vital Signs: Temp Pulse Resp BP Pulse Ox 97.8 F 54 L 18 143/53 H 97 03/29/17 07:15 03/29/17 07:15 03/29/17 07:15 03/29/17 07:15 03/29/17 07:15 Intake & Output 03/28/17 03/29/17 03/30/17 06:59 06:59 06:59 Intake Total 894 1051 Output Total 900 Balance 894 151 Weight 69 kg 71 kg General appearance: PRESENT: no acute distress Neck exam: ABSENT: JVD Respiratory exam: PRESENT: clear to auscultation sara. ABSENT: rales, rhonchi, wheezes Cardiovascular exam: PRESENT: irregular rhythm. ABSENT: diastolic murmur, rubs , systolic murmur GI/Abdominal exam: PRESENT: normal bowel sounds, soft. ABSENT: distended, guarding, mass, organolmegaly, rebound, tenderness Extremities exam: ABSENT: calf tenderness, clubbing, pedal edema Skin exam: PRESENT: dry, intact, warm. ABSENT: cyanosis, rash Results Laboratory Results: 03/28/17 01:50 03/28/17 01:50 03/28/17 11:00 Urine Color YELLOW Urine Appearance SLIGHTLY-CLOUDY Urine pH 6.0 Ur Specific [place] 1.009 Urine Protein NEGATIVE Urine Glucose (UA) NEGATIVE Urine Ketones NEGATIVE Urine Blood SMALL H Urine Nitrite NEGATIVE Ur Leukocyte Esterase LARGE H Urine WBC (Auto) 84 Urine RBC (Auto) 1 03/16/17 03/16/17 03/16/17 02:17 02:17 08:03 Creatine Kinase 100 CK-MB (CK-2) 1.25 0.88 Troponin I 0.017 0.018 03/16/17 03/24/17 03/25/17 22:00 21:35 03:26 Creatine Kinase CK-MB (CK-2) 0.72 Troponin I < 0.012 0.254 0.179 03/25/17 03/25/17 03/25/17 10:55 22:48 22:48 Creatine Kinase 76 CK-MB (CK-2) 0.75 Troponin I 0.125 0.087 03/26/17 03/26/17 03/26/17 04:26 04:26 10:48 Creatine Kinase 59 58 CK-MB (CK-2) 0.42 Troponin I 0.080 03/26/17 03/27/17 10:48 05:48 Creatine Kinase CK-MB (CK-2) 0.36 Troponin I 0.072 0.044 Impressions: Carotid Doppler Study 03/16/17 10:05 IMPRESSION: NO HEMODYNAMICALLY SIGNIFICANT STENOSIS. Head MRI 03/16/17 10:05 IMPRESSION: Large area of acute infarction in the left occipital lobe with a tiny area in the left parietal lobe. Underlying atrophy and microvascular ischemia. 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 Redemonstrated region of subacute ischemic change in the left occipital lobe compatible left KELP CUTTER distribution infarction with mild effacement of the adjacent sulcal spaces and no significant midline shift, hemorrhage, or downward herniation This exam was performed according to our departmental dose-optimization program, which includes automated exposure control, adjustment of the mA and/or kV according to patient size and/or use of iterative reconstruction technique. Modified Barium Swallow 03/19/17 00:00 IMPRESSION: NO EVIDENCE OF PENETRATION OR ASPIRATION.PLEASE SEE SPEECH PATHOLOGIST REPORT FOR OTHER FINDINGS AND RECOMMENDATIONS. Chest X-Ray 03/19/17 03:29 IMPRESSION: 1. No acute pulmonary process identified. Assessment & Plan - Diagnosis (1) Visual field defects Is this a current diagnosis for this admission?: Yes Plan: Secondary to CVA. 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 Continue with aspirin and Coumadin. (3) Hyperlipidemia Is this a current diagnosis for this admission?: Yes Plan: Continue with Lipitor. (4) Dementia Qualifiers: Dementia type: Alzheimer's disease Is this a current diagnosis for this admission?: Yes (5) Hypertension Qualifiers: Hypertension type: essential hypertension Qualified Code(s): I10 - Essential (primary) hypertension Is this a current diagnosis for this admission?: Yes Plan: Continue with Norvasc and lisinopril. Will increase the nitroglycerin patch. (6) Peripheral vascular disease Is this a current diagnosis for this admission?: Yes (7) Non-STEMI (non-ST elevated myocardial infarction) Is this a current diagnosis for this admission?: Yes Plan: She has elevated troponin suggestive of a non-STEMI. Cardiology has evaluated the patient. Continue with aspirin and nitroglycerin patch. (8) Afib Qualifiers: Atrial fibrillation type: paroxysmal Qualified Code(s): I48.0 - Paroxysmal atrial fibrillation Is this a current diagnosis for this admission?: Yes Plan: Patient is rate control. Continue with the Coumadin. (9) Anemia Is this a current diagnosis for this admission?: Yes Plan: Stable - Time Time Spent with patient: 25-34 minutes - Inpatient Certification Medical Necessity: Need Close Monitoring Due to Risk of Patient Decompensation - Plan Summary Plan Summary: We will hopefully be ready for discharge to rehab on Friday.
[2017-03-29 10:18] LABS: INTERNATIONAL RATION (INR) 2.58
[2017-03-29] MEDS: NITROGLYCERIN 10 MG (0.4 MG/HR) PATCH.TD24 TD SCH (10:52)
[2017-03-29] MEDS: ASPIRIN 81 MG TABLET, ENT COATED PO SCH (10:53)
[2017-03-29] MEDS: LISINOPRIL 10 MG TABLET PO SCH (10:53)
[2017-03-29 18:19] LABS: INTERNATIONAL RATION (INR) 2.35
[2017-03-29] MEDS: WARFARIN SODIUM 5 MG TABLET PO SCH (19:52)
[2017-03-29] MEDS: ATORVASTATIN CALCIUM 80 MG TABLET PO SCH (19:52)
[2017-03-29] MEDS: QUETIAPINE FUMARATE 25 MG TABLET PO SCH (19:53)
[2017-03-29] MEDS: GABAPENTIN 300 MG CAPSULE PO SCH (19:53)
[2017-03-29] MEDS: RISPERIDONE 0.25 MG TABLET PO PRN (19:58)
--- NOTE | 2017-03-29 20:19 | PROGRESS NOTE E ---
Progress Note NAME: LOUANN ROACH : 1935 AGE: 81Y DATE: 03/29/2017 ROOM: 317 SUBJECTIVE: The patient continues to be pleasantly confused and appears to be in no acute distress. There is no recurrence of chest pain or discomfort. There is no shortness of breath. There is no PND, orthopnea. The patient is sitting up in the chair. There is no recurrence of atrial fibrillation. There is no recurrence or extension of the patient's TIA or CVA symptoms. There is no dizziness or syncope. There is no ventricular arrhythmia seen on the monitor. There is no pedal edema. OBJECTIVE: GENERAL: On examination the patient is of frail build and looks slightly older than her stated age. VITAL SIGNS: Her temperature is 99.1 degrees Fahrenheit, pulse is 67 beats per minute regular, blood pressure is 126/44, respirations are 20 per minute, O2 saturations are 98% on 2 liters nasal cannula. HEENT: Head is atraumatic, normocephalic. EYES: Pupils are equal, round, regular, reactive to light and accommodation. Extraocular movements are normal. There is no conjunctival pallor. There is no scleral icterus. ENT is negative. NECK: Supple. There is no JVD. Carotids are equal. There is a transmitted murmur over the carotids from the aortic area. There is no carotid delay. There is no thyromegaly. There is no goiter. There is no lymphadenopathy. Trachea is central. SKIN: Shows no petechiae or ecchymosis. There are no skin lesions or skin rashes. LUNGS: Clear to auscultation and percussion. There is no chest wall tenderness. HEART: S1, S2 is heard. There is no S3 gallop. There is no S4 gallop. There is a systolic murmur of mild aortic stenosis present. A2 is well- preserved. There is no carotid delay. There is no rub. ABDOMEN: Soft, nontender. There is no hepatosplenomegaly. Bowel sounds are well heard. EXTREMITIES: Femorals are slightly diminished. There are no femoral bruits. Leg pulses are diminished. There is no DVT or cellulitis. There is no calf tenderness. There is no pedal edema. CENTRAL NERVOUS SYSTEM: The patient is conscious, awake, confused pleasantly with no focal deficits. She moves all 4 extremities. PSYCHIATRIC: The patient does not appear to be agitated. Since the patient is confused a full psych exam has not been made. DIAGNOSTIC STUDIES: The patient's ProTime is 29 and INR is 2.58. The patient is on IV heparin as per PTT. Earlier her PTT this morning was 91.3. IMPRESSION: 1. [id number] PR. Troponin I has trended down. The patient without any symptoms at present. 2. PAROXYSMAL ATRIAL FIBRILLATION AT PRESENT IN SINUS RHYTHM WITH NO RECURRENCE. PATIENT WITH RECENT STROKE AND THE PATIENT AT PRESENT ON HEPARIN. Note that the patient is on full dose heparin and also on Coumadin. The patient's PT is 29 and INR is 2.58 and her PTT is 91.3. We will stop the patient's IV heparin and recheck the patient's PT/INR at 1800, to see if the patient is still therapeutic. Hence, the heparin has been stopped. 3. HYPERTENSION. Blood pressure is very well-controlled. Continue Norvasc 5 mg p.o. q.12 hours. 4. CEREBROVASCULAR ACCIDENT WITH POSTERIOR CEREBRAL ARTERY INVOLVEMENT WITH LEFT OCCIPITAL INFARCT AND A SMALL AREA OF LEFT PARIETAL LOBE. NO EXTENSION OF THE INFARCT AND NO RECURRENCE OF TIA. 5. HISTORY OF TIAs AND CVAs. 6. DEMENTIA, SIGNIFICANT. 7. HYPERLIPIDEMIA. 8. MILD AORTIC STENOSIS. PLAN: Continue lisinopril. Continue amlodipine. Continue her antipsychotic medication. Continue Coumadin. Note discussed with the patient's daughter as to the topic of Lovenox and starting on the patient's Coumadin. Discussed with Dr. Bobo, the hospitalist who is the attending physician on the case. TIME SPENT: Note 25 minutes spent on this patient with more than 50% of the time spent on direct patient care. Her medications have been reviewed and medications adjusted as mentioned earlier with stopping the patient's heparin and continue the patient's Coumadin. In view of the aortic stenosis and the patient's age, in spite of the patient having paroxysmal atrial fibrillation the patient is not a very good candidate for AV or SA marbella blocking agents since this can cause significant bradycardia. Hence, we will continue with the amlodipine. Note that the patient is on full chronic anticoagulation therapy to prevent recurrence of TIA or CVA. Note medical decision making continues to be of moderate complexity. We will follow with you. Hopefully the patient can be discharged in a day or 2. Would send the patient for a rehab therapy and the daughter wants the patient to follow up with me as an outpatient. I have given my cell number to the patient's daughter to call me after the patient has been discharged from the rehab facility. DICTATING PHYSICIAN: STEVO ROSS M.D. [id number] PHY#: [id number] ID: [id number] JOB#: [id number] ACCT: [id number] cc: >
[2017-03-29] MEDS: CYCLOBENZAPRINE HCL 10 MG TABLET PO PRN (23:39)
[2017-03-30 06:49] LABS: HEMATOCRIT 28.3 % (36.0-47.0); HEMOGLOBIN 9.6 g/dL (12.0-15.5); MEAN CORPUSCULAR HGB CONC 33.9 g/dL (32.0-36.0); MEAN CORPUSCULAR VOLUME 86 fl (80-97); PLATELET COUNT 363 10^3/uL (150-450); RED CELL DISTRIBUTION WIDTH 12.9 % (11.5-14.0); WHITE BLOOD COUNT 6.4 10^3/uL (4.0-10.5)
[2017-03-30 06:59] LABS: INTERNATIONAL RATION (INR) 2.21; PROTHROMBIN TIME 25.7 SEC (11.4-15.4)
[2017-03-30 07:00] LABS: PARTIAL THROMBOPLASTIN TIME 53.2 SEC (23.5-35.8)
[2017-03-30] MEDS ORDERED: RISPERIDONE 0.25 MG TABLET PO PRN (09:30)
[2017-03-30] MEDS: NITROGLYCERIN 10 MG (0.4 MG/HR) PATCH.TD24 TD SCH (09:34)
[2017-03-30] MEDS: ASPIRIN 81 MG TABLET, ENT COATED PO SCH (09:35)
[2017-03-30] MEDS: AMLODIPINE BESYLATE 5 MG TABLET PO SCH ×2 (09:35→20:17)
[2017-03-30] MEDS: LISINOPRIL 10 MG TABLET PO SCH (09:35)
--- NOTE | 2017-03-30 11:20 | PDOC PROGRESS REPORT ---
Subjective Progress Note for:: 03/30/17 Subjective:: Patient was agitated last night Reason For Visit: CVA HTN Physical Exam Vital Signs: Temp Pulse Resp BP Pulse Ox 97.7 F 54 L 18 133/46 H 98 03/30/17 07:24 03/30/17 07:24 03/30/17 07:24 03/30/17 07:24 03/30/17 07:24 Intake & Output 03/29/17 03/30/17 03/31/17 06:59 06:59 06:59 Intake Total 1051 890 Output Total 900 Balance 151 890 Weight 71 kg 70.7 kg General appearance: PRESENT: no acute distress Eye exam: PRESENT: conjunctiva pink. ABSENT: scleral icterus Mouth exam: PRESENT: moist, tongue midline Neck exam: ABSENT: JVD Respiratory exam: PRESENT: clear to auscultation sara. ABSENT: rales, rhonchi, wheezes Cardiovascular exam: PRESENT: RRR. ABSENT: diastolic murmur, rubs, systolic murmur GI/Abdominal exam: PRESENT: normal bowel sounds, soft. ABSENT: distended, guarding, mass, organolmegaly, rebound, tenderness Extremities exam: ABSENT: calf tenderness, clubbing, pedal edema Neurological exam: PRESENT: alert, awake, oriented to person, oriented to place , CN II-XII grossly intact. ABSENT: oriented to time, oriented to situation, motor sensory deficit Psychiatric exam: PRESENT: appropriate affect Skin exam: PRESENT: dry, intact, warm. ABSENT: cyanosis, rash Results Laboratory Results: 03/30/17 06:15 03/28/17 01:50 03/30/17 06:15 WBC 6.4 RBC 3.30 L Hgb 9.6 L Hct 28.3 L MCV 86 MCH 29.0 MCHC 33.9 RDW 12.9 Plt Count 363 03/16/17 03/16/17 03/16/17 02:17 02:17 08:03 Creatine Kinase 100 CK-MB (CK-2) 1.25 0.88 Troponin I 0.017 0.018 03/16/17 03/24/17 03/25/17 22:00 21:35 03:26 Creatine Kinase CK-MB (CK-2) 0.72 Troponin I < 0.012 0.254 0.179 03/25/17 03/25/17 03/25/17 10:55 22:48 22:48 Creatine Kinase 76 CK-MB (CK-2) 0.75 Troponin I 0.125 0.087 03/26/17 03/26/17 03/26/17 04:26 04:26 10:48 Creatine Kinase 59 58 CK-MB (CK-2) 0.42 Troponin I 0.080 03/26/17 03/27/17 10:48 05:48 Creatine Kinase CK-MB (CK-2) 0.36 Troponin I 0.072 0.044 Impressions: Carotid Doppler Study 03/16/17 10:05 IMPRESSION: NO HEMODYNAMICALLY SIGNIFICANT STENOSIS. Head MRI 03/16/17 10:05 IMPRESSION: Large area of acute infarction in the left occipital lobe with a tiny area in the left parietal lobe. Underlying atrophy and microvascular ischemia. 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 Redemonstrated region of subacute ischemic change in the left occipital lobe compatible left EXTRACTOR OPERATOR distribution infarction with mild effacement of the adjacent sulcal spaces and no significant midline shift, hemorrhage, or downward herniation This exam was performed according to our departmental dose-optimization program, which includes automated exposure control, adjustment of the mA and/or kV according to patient size and/or use of iterative reconstruction technique. Modified Barium Swallow 03/19/17 00:00 IMPRESSION: NO EVIDENCE OF PENETRATION OR ASPIRATION.PLEASE SEE SPEECH PATHOLOGIST REPORT FOR OTHER FINDINGS AND RECOMMENDATIONS. Chest X-Ray 03/19/17 03:29 IMPRESSION: 1. No acute pulmonary process identified. Assessment & Plan - Diagnosis (1) Visual field defects Is this a current diagnosis for this admission?: Yes Plan: Secondary to CVA. 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 Continue with aspirin and Coumadin. (3) Hyperlipidemia Is this a current diagnosis for this admission?: Yes Plan: Continue with Lipitor. (4) Dementia Qualifiers: Dementia type: Alzheimer's disease Is this a current diagnosis for this admission?: Yes (5) Hypertension Qualifiers: Hypertension type: essential hypertension Qualified Code(s): I10 - Essential (primary) hypertension Is this a current diagnosis for this admission?: Yes Plan: Continue with Norvasc and lisinopril. (6) Peripheral vascular disease Is this a current diagnosis for this admission?: Yes (7) Non-STEMI (non-ST elevated myocardial infarction) Is this a current diagnosis for this admission?: Yes Plan: She has elevated troponin suggestive of a non-STEMI. Cardiology has evaluated the patient. Continue with aspirin and nitroglycerin patch. (8) Afib Qualifiers: Atrial fibrillation type: paroxysmal Qualified Code(s): I48.0 - Paroxysmal atrial fibrillation Is this a current diagnosis for this admission?: Yes Plan: Patient is rate controlled. Continue with the Coumadin. (9) Anemia Is this a current diagnosis for this admission?: Yes Plan: Stable - Time Time Spent with patient: 25-34 minutes - Inpatient Certification Medical Necessity: Need Close Monitoring Due to Risk of Patient Decompensation
[2017-03-30] MEDS: LACTULOSE SYRUP 20 GM/30 ML UDCUP PO PRN (13:39)
--- NOTE | 2017-03-30 15:24 | PROGRESS NOTE E ---
Progress Note NAME: LOUANN ROACH : 1935 AGE: 81Y DATE: 03/30/2017 ROOM: 317 SUBJECTIVE: The patient was agitated last night, at present the patient is asleep. There is no recurrence of atrial fibrillation. There is no chest pain or discomfort. There is no PND, orthopnea. The patient is able to lie down flat. There are no TIA or CVA symptoms. There is no pedal edema. There are no palpitations. There is no arrhythmia seen on the monitor. The patient remains in sinus rhythm. OBJECTIVE: GENERAL: On examination the patient is of frail built and looks slightly older than her stated age. VITAL SIGNS: She is afebrile with a temperature of 97.9 degrees Fahrenheit orally, pulse is 60 beats per minute, blood pressure 138/59, respirations are 17 per minute, O2 saturations are 97% on room air. HEENT: Head is atraumatic, normocephalic. Eyes: Pupils are equal, round, regular, reactive to light and accommodation. Extraocular movements are normal. There is no conjunctival pallor. There is no scleral icterus. Ears: Tympanic membranes are intact, external auditory canals are clear. Nose and throat are negative. NECK: Supple. There is no JVD. Carotids are equal. There is no bruit. There is a transmitted aortic stenosis murmur present. There is no carotid delay. Trachea is central. There is no lymphadenopathy. There is no accessory muscles of respiratory in use. HEART: S1, S2 is heard. There is no S3 gallop. There is no S4 gallop. There is a systolic murmur of mild aortic stenosis present. A2 is well heard. There is no carotid delay. ABDOMEN: Soft, nontender. There is no hepatosplenomegaly. Bowel sounds are well heard. There are no tender areas or masses. EXTREMITIES: Femorals are diminished. There are no femoral bruits. Leg pulses are diminished. There is no DVT or cellulitis. There is no calf tenderness. There is no pedal edema. There is no cyanosis or clubbing. CENTRAL NERVOUS SYSTEM: The patient is asleep at present but moves all 4 extremities. PSYCHIATRIC: The patient does not appear to be agitated. DIAGNOSTIC STUDIES: The patient's white count is 6400, hemoglobin is 9.6, hematocrit is 28.3, platelet count is 363,000. The patient's sodium is 143.5, potassium is 3.7 on 03/28. The patient's ProTime is 25.7, INR is 2.21, and PTT is 53.2. IMPRESSION: 1. YKC-TO-LJNFEPIVP SC. Troponin I has trended down. The patient without any symptoms at present. 2. PAROXYSMAL ATRIAL FIBRILLATION AT PRESENT IN SINUS RHYTHM WITH NO RECURRENCE. The patient's INR is therapeutic on Coumadin. Would continue the same. 3. HYPERTENSION. Blood pressure is very well-controlled. Continue Norvasc 5 mg p.o. q.12 hours. Not that the patient is not on an AV or SA marbella blocking agent in view of the patient's age, the heart rate being 60, and the patient having aortic stenosis. 4. 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 THERE IS NO EXTENSION OF THE INFARCT AND NO RECURRENCE OF TIA. 5. HISTORY OF TIAs AND CVAs. 6. DEMENTIA. 7. HYPERLIPIDEMIA. 8. MILD AORTIC STENOSIS. RECOMMENDATION: Continue lisinopril. Continue amlodipine. Continue her antipsychotic medication and her anti-dementia medication and continue Coumadin. Note that the patient's Lovenox has been stopped. TIME SPENT: Note 25 minutes spent on this patient with more than 50% of the time spent on direct patient care. Her medications have been reviewed and medications and the care plan has been discussed with the attending physician taking care of the patient. The patient's cardiac status is stable, we will sign off. The patient is in the process of being transferred to a [facility] facility and once the patient gets home the daughter will call me to fix an appointment for follow up in my office. Note medical decision making is of moderate complexity. We will follow with you. DICTATING PHYSICIAN: STEVO ROSS M.D. [id number] PEE#: [id number] ID: [id number] JOB#: [id number] ACCT: [id number] cc: >
[2017-03-30 17:40] LABS: APPEARANCE,URINE CLOUDY; BILIRUBIN,URINE NEGATIVE (NEGATIVE); COLOR,URINE YELLOW; GLUCOSE, URINE NEGATIVE (NEGATIVE); KETONES,URINE NEGATIVE (NEGATIVE); LEUKOCYTE ESTERASE,URINE MODERATE (NEGATIVE); NITRITE,URINE NEGATIVE (NEGATIVE); PROTEIN,URINE NEGATIVE (NEGATIVE); URINE SPECIFIC GRAVITY 1.016; UROBILINOGEN,URINE NEGATIVE mg/dL (<2.0)
[2017-03-30] MEDS: PHENAZOPYRIDINE HCL 200 MG TABLET PO SCH (20:16)
[2017-03-30] MEDS: QUETIAPINE FUMARATE 25 MG TABLET PO SCH (20:17)
[2017-03-30] MEDS: WARFARIN SODIUM 5 MG TABLET PO SCH (20:17)
[2017-03-30] MEDS: ATORVASTATIN CALCIUM 80 MG TABLET PO SCH (20:17)
[2017-03-30] MEDS: GABAPENTIN 300 MG CAPSULE PO SCH (20:17)
[2017-03-31 05:38] LABS: HEMATOCRIT 28.1 % (36.0-47.0); HEMOGLOBIN 9.7 g/dL (12.0-15.5); MEAN CORPUSCULAR HEMOGLOBIN 29.6 pg (27.0-33.4); MEAN CORPUSCULAR HGB CONC 34.4 g/dL (32.0-36.0); MEAN CORPUSCULAR VOLUME 86 fl (80-97); PLATELET COUNT 342 10^3/uL (150-450); RED BLOOD COUNT 3.26 10^6/uL (3.72-5.28); RED CELL DISTRIBUTION WIDTH 12.8 % (11.5-14.0); WHITE BLOOD COUNT 7.2 10^3/uL (4.0-10.5)
[2017-03-31] MEDS: PHENAZOPYRIDINE HCL 200 MG TABLET PO SCH ×3 (05:46→20:07)
[2017-03-31] MEDS: LISINOPRIL 10 MG TABLET PO SCH (10:17)
[2017-03-31] MEDS: ASPIRIN 81 MG TABLET, ENT COATED PO SCH (10:17)
[2017-03-31] MEDS: AMLODIPINE BESYLATE 5 MG TABLET PO SCH ×2 (10:17→20:07)
[2017-03-31] MEDS: NITROGLYCERIN 10 MG (0.4 MG/HR) PATCH.TD24 TD SCH (10:17)
--- NOTE | 2017-03-31 15:43 | PDOC PROGRESS REPORT ---
Subjective Progress Note for:: 03/31/17 Subjective:: 81-year-old female who presented with agitation and vision loss. She was found to have an occipital CVA. Patient also was noted to have atrial fibrillation and was started on heparin and Coumadin. During the hospitalization she did develop chest pain and was noted to have a non-STEMI. Cardiology was consulted. the patient's daughter and cardiology agreed that she should be medically managed and she was started on nitroglycerin patch. She has been pain-free since then. She also has had problems with agitation and does have dementia chronically. Reason For Visit: CVA HTN Physical Exam Vital Signs: Temp Pulse Resp BP Pulse Ox 98.1 F 63 19 131/56 H 94 03/31/17 12:59 03/31/17 14:00 03/31/17 12:59 03/31/17 12:59 03/31/17 12:59 Intake & Output 03/30/17 03/31/17 04/01/17 06:59 06:59 06:59 Intake Total 890 732 236 Balance 890 732 236 Weight 70.7 kg 67.1 kg General appearance: PRESENT: no acute distress Eye exam: PRESENT: conjunctiva pink. ABSENT: scleral icterus Neck exam: ABSENT: JVD Respiratory exam: PRESENT: clear to auscultation sara. ABSENT: rales, rhonchi, wheezes Cardiovascular exam: PRESENT: RRR, systolic murmur. ABSENT: diastolic murmur, rubs GI/Abdominal exam: PRESENT: normal bowel sounds, soft. ABSENT: distended, guarding, mass, organolmegaly, rebound, tenderness Extremities exam: ABSENT: calf tenderness, clubbing, pedal edema Neurological exam: PRESENT: alert, awake, oriented to person, oriented to place , CN II-XII grossly intact. ABSENT: oriented to time, oriented to situation, motor sensory deficit Psychiatric exam: PRESENT: appropriate affect Skin exam: PRESENT: dry, intact, warm. ABSENT: cyanosis, rash Results Laboratory Results: 03/31/17 05:06 03/28/17 01:50 03/30/17 03/30/17 03/31/17 16:00 17:20 05:06 WBC 7.2 RBC 3.26 L Hgb 9.7 L Hct 28.1 L MCV 86 MCH 29.6 MCHC 34.4 RDW 12.8 Plt Count 342 Urine Color YELLOW Urine Appearance CLOUDY Urine pH 7.0 Ur Specific [place] 1.016 Urine Protein NEGATIVE Urine Glucose (UA) NEGATIVE Urine Ketones NEGATIVE Urine Blood SMALL H Urine Nitrite NEGATIVE Ur Leukocyte Esterase MODERATE H Urine WBC (Auto) >182 Urine RBC (Auto) 9 Stool Occult Blood NEGATIVE 03/16/17 03/16/17 03/16/17 02:17 02:17 08:03 Creatine Kinase 100 CK-MB (CK-2) 1.25 0.88 Troponin I 0.017 0.018 03/16/17 03/24/17 03/25/17 22:00 21:35 03:26 Creatine Kinase CK-MB (CK-2) 0.72 Troponin I < 0.012 0.254 0.179 03/25/17 03/25/17 03/25/17 10:55 22:48 22:48 Creatine Kinase 76 CK-MB (CK-2) 0.75 Troponin I 0.125 0.087 03/26/17 03/26/17 03/26/17 04:26 04:26 10:48 Creatine Kinase 59 58 CK-MB (CK-2) 0.42 Troponin I 0.080 03/26/17 03/27/17 10:48 05:48 Creatine Kinase CK-MB (CK-2) 0.36 Troponin I 0.072 0.044 Impressions: Carotid Doppler Study 03/16/17 10:05 IMPRESSION: NO HEMODYNAMICALLY SIGNIFICANT STENOSIS. Head MRI 03/16/17 10:05 IMPRESSION: Large area of acute infarction in the left occipital lobe with a tiny area in the left parietal lobe. Underlying atrophy and microvascular ischemia. 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 Redemonstrated region of subacute ischemic change in the left occipital lobe compatible left BRIQUETTE MACHINE OPERATOR HELPER distribution infarction with mild effacement of the adjacent sulcal spaces and no significant midline shift, hemorrhage, or downward herniation This exam was performed according to our departmental dose-optimization program, which includes automated exposure control, adjustment of the mA and/or kV according to patient size and/or use of iterative reconstruction technique. Modified Barium Swallow 03/19/17 00:00 IMPRESSION: NO EVIDENCE OF PENETRATION OR ASPIRATION.PLEASE SEE SPEECH PATHOLOGIST REPORT FOR OTHER FINDINGS AND RECOMMENDATIONS. Chest X-Ray 03/19/17 03:29 IMPRESSION: 1. No acute pulmonary process identified. Assessment & Plan - Diagnosis (1) Visual field defects Is this a current diagnosis for this admission?: Yes Plan: Secondary to CVA. 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 Continue with aspirin and Coumadin. (3) Hyperlipidemia Is this a current diagnosis for this admission?: Yes Plan: Continue with Lipitor. (4) Dementia Qualifiers: Dementia type: Alzheimer's disease Is this a current diagnosis for this admission?: Yes (5) Hypertension Qualifiers: Hypertension type: essential hypertension Qualified Code(s): I10 - Essential (primary) hypertension Is this a current diagnosis for this admission?: Yes Plan: Continue with Norvasc and lisinopril. (6) Peripheral vascular disease Is this a current diagnosis for this admission?: Yes (7) Non-STEMI (non-ST elevated myocardial infarction) Is this a current diagnosis for this admission?: Yes Plan: She has elevated troponin suggestive of a non-STEMI. Cardiology has evaluated the patient. Continue with aspirin and nitroglycerin patch. (8) Afib Qualifiers: Atrial fibrillation type: paroxysmal Qualified Code(s): I48.0 - Paroxysmal atrial fibrillation Is this a current diagnosis for this admission?: Yes Plan: Patient is rate controlled. Continue with the Coumadin. (9) Anemia Is this a current diagnosis for this admission?: Yes Plan: Stable - Time Time Spent with patient: 25-34 minutes - Inpatient Certification Medical Necessity: Need Close Monitoring Due to Risk of Patient Decompensation - Plan Summary Plan Summary: She can hopefully be discharged to skilled nurse facility tomorrow for rehab.
[2017-03-31] MEDS: RISPERIDONE 1 MG TABLET PO PRN (18:06)
[2017-03-31] MEDS: ATORVASTATIN CALCIUM 80 MG TABLET PO SCH (20:07)
[2017-03-31] MEDS: WARFARIN SODIUM 5 MG TABLET PO SCH (20:07)
[2017-03-31] MEDS: QUETIAPINE FUMARATE 25 MG TABLET PO SCH (20:07)
[2017-03-31] MEDS: GABAPENTIN 300 MG CAPSULE PO SCH (20:08)
[2017-04-01 05:00] LABS: ABSOLUTE BASOPHILS # (AUTO) 0.1 10^3/uL (0.0-0.2); ABSOLUTE EOSINOPHILS # (AUTO) 0.5 10^3/uL (0.0-0.6); ABSOLUTE LYMPHOCYTES (AUTO) 1.2 10^3/uL (0.5-4.7); ABSOLUTE MONOCYTES (AUTO) 0.8 10^3/uL (0.1-1.4); ABSOLUTE NEUT (AUTO) 7.3 10^3/uL (1.7-8.2); BASOPHILS % (AUTO) 0.6 % (0-2); EOSINOPHILS % (AUTO) 4.9 % (0-6); HEMOGLOBIN 9.8 g/dL (12.0-15.5); LYMPHOCYTES % (AUTO) 12.1 % (13-45); MEAN CORPUSCULAR HGB CONC 33.8 g/dL (32.0-36.0); MEAN CORPUSCULAR VOLUME 86 fl (80-97); MONOCYTES % (AUTO) 8.4 % (3-13); PLATELET COUNT 365 10^3/uL (150-450); RED BLOOD COUNT 3.38 10^6/uL (3.72-5.28); RED CELL DISTRIBUTION WIDTH 12.8 % (11.5-14.0); TOTAL CELLS COUNTED % (AUTO) 100 %; WHITE BLOOD COUNT 9.9 10^3/uL (4.0-10.5)
[2017-04-01 05:07] LABS: PROTHROMBIN TIME 32.6 SEC (11.4-15.4)
[2017-04-01 05:21] LABS: ANION GAP 5 (5-19); BLOOD UREA NITROGEN 18 mg/dL (7-20); CALCIUM 8.9 mg/dL (8.4-10.2); CARBON DIOXIDE 29 mmol/L (22-30); CHLORIDE 107 mmol/L (98-107); GLUCOSE 95 mg/dL (75-110); POTASSIUM 4.2 mmol/L (3.6-5.0); SODIUM 140.9 mmol/L (137-145)
[2017-04-01] MEDS: PHENAZOPYRIDINE HCL 200 MG TABLET PO SCH ×2 (05:37→13:37)
[2017-04-01] MEDS: NITROGLYCERIN 10 MG (0.4 MG/HR) PATCH.TD24 TD SCH (09:35)
[2017-04-01] MEDS: LISINOPRIL 10 MG TABLET PO SCH (09:36)
[2017-04-01] MEDS: AMLODIPINE BESYLATE 5 MG TABLET PO SCH (09:36)
[2017-04-01] MEDS: ASPIRIN 81 MG TABLET, ENT COATED PO SCH (09:36)
[2017-04-01 12:12] VITALS: BP 120/46
--- NOTE | 2017-04-01 14:04 | PDOC DISCHARGE SUMMARY ---
General - Admit/Disc Date/PCP Admission Date/Primary Care Provider: 03/15/17 23:45 CHARBEL CAMACHO MD Discharge Date: 04/01/17 - Discharge Diagnosis (1) Afib Is this a current diagnosis for this admission?: Yes Summary: Chronic (2) CVA (cerebral vascular accident) Is this a current diagnosis for this admission?: Yes (3) Dementia Is this a current diagnosis for this admission?: Yes (4) Hyperlipidemia Is this a current diagnosis for this admission?: Yes (5) Non-STEMI (non-ST elevated myocardial infarction) Is this a current diagnosis for this admission?: Yes (6) Hypertension Is this a current diagnosis for this admission?: Yes (7) Peripheral vascular disease Is this a current diagnosis for this admission?: Yes (8) UTI (urinary tract infection) Is this a current diagnosis for this admission?: Yes Summary: Urine culture grew E. coli. - Additional Information Resuscitation Status: Full Code Discharge Diet: Cardiac Discharge Activity: Activity As Tolerated Prescriptions: Aspirin [Ecotrin 81 mg EC Tablet] 81 mg PO DAILY 30 Days tabec Atorvastatin Calcium [Lipitor 80 mg Tablet] 80 mg PO DAILY@1999 30 Days tablet Nitrofurantoin Monohyd/M-Cryst [Macrobid 100 mg Capsule] 100 mg PO BID 7 Days # 14 capsule Warfarin Sodium 5 mg PO DAILY 30 Days tablet Home Medications: Tolterodine Tartrate [Detrol LA] 4 mg PO DAILY #30 cap.sr.24h 01/15/16 Donepezil HCl 5 mg PO DAILY 03/16/17 Gabapentin 300 mg PO QHS 03/16/17 Mecobal/Levomefolat Ca/B6 Phos [q-Vhmsxg-W5-B12 Tablet] 1 tab PO DAILY 03/16/17 Nifedipine [Nifedipine ER] 30 mg PO DAILY 03/16/17 Quetiapine Fumarate 25 mg PO QHS 03/16/17 Lisinopril 20 mg PO QHS 03/20/17 Aspirin [Ecotrin 81 mg EC Tablet] 81 mg PO DAILY 30 Days tabec 04/01/17 Atorvastatin Calcium [Lipitor 80 mg Tablet] 80 mg PO DAILY@1999 30 Days tablet 04/01/17 Gabapentin [Neurontin 300 mg Capsule] 300 mg PO DAILY@1999 capsule 04/01/17 Nitrofurantoin Monohyd/M-Cryst [Macrobid 100 mg Capsule] 100 mg PO BID 7 Days # 14 capsule 04/01/17 Risperidone [Risperdal 1 mg Tablet] 1 mg PO BIDP PRN tablet 04/01/17 Warfarin Sodium 5 mg PO DAILY 30 Days tablet 04/01/17 History of Present Illness History of Present Illness: LOUANN ROACH is a 81 year old female who presented with agitation and vision loss. Hospital Course Hospital Course: She was found to have an occipital CVA. Patient also was noted to have atrial fibrillation and was started on heparin and Coumadin. During the hospitalization she did develop chest pain and was noted to have a non-STEMI. Cardiology was consulted. The patient's daughter and cardiology agreed that she should be medically managed. She was started on nitroglycerin patch. She has been pain-free since then. She also has had problems with agitation and does have dementia chronically. On the day of discharge, her INR was 3.0. She will need to hold her warfarin dose today 04/01/17. Her INR needs to be rechecked 04/02/17 and daily thereafter until a suitable dose of warfarin is found. Physical Exam Vital Signs: Temp Pulse Resp BP Pulse Ox 98.2 F 65 16 120/46 L 91 L 04/01/17 11:38 04/01/17 11:38 04/01/17 11:38 04/01/17 11:38 04/01/17 11:38 Intake & Output 03/31/17 04/01/17 04/02/17 06:59 06:59 06:59 Intake Total 732 751 Output Total 0 Balance 732 751 Weight 67.1 kg 67.5 kg General appearance: PRESENT: no acute distress, obese Head exam: PRESENT: atraumatic, normocephalic Eye exam: PRESENT: EOMI, PERRLA Respiratory exam: PRESENT: clear to auscultation sara. ABSENT: rales, rhonchi, wheezes Cardiovascular exam: PRESENT: irregular rhythm GI/Abdominal exam: PRESENT: normal bowel sounds, soft. ABSENT: distended, guarding, mass, organolmegaly, rebound, tenderness Extremities exam: ABSENT: pedal edema Neurological exam: PRESENT: alert, awake, oriented to person Results Laboratory Results: 04/01/17 04:40 04/01/17 04:40 04/01/17 04/01/17 04:40 04:40 WBC 9.9 RBC 3.38 L Hgb 9.8 L Hct 29.0 L MCV 86 MCH 29.0 MCHC 33.8 RDW 12.8 Plt Count 365 Seg Neutrophils % 74.0 Lymphocytes % 12.1 L Monocytes % 8.4 Eosinophils % 4.9 Basophils % 0.6 Absolute Neutrophils 7.3 Absolute Lymphocytes 1.2 Absolute Monocytes 0.8 Absolute Eosinophils 0.5 Absolute Basophils 0.1 Sodium 140.9 Potassium 4.2 Chloride 107 Carbon Dioxide 29 Anion Gap 5 BUN 18 Creatinine 0.83 Est GFR ( Amer) > 60 Est GFR (Non-Af Amer) > 60 Glucose 95 Calcium 8.9 03/30/17 16:00 Clean Catch Midstream Urine Culture - Final Escherichia Coli 03/16/17 03/16/17 03/16/17 02:17 02:17 08:03 Creatine Kinase 100 CK-MB (CK-2) 1.25 0.88 Troponin I 0.017 0.018 03/16/17 03/24/17 03/25/17 22:00 21:35 03:26 Creatine Kinase CK-MB (CK-2) 0.72 Troponin I < 0.012 0.254 0.179 03/25/17 03/25/17 03/25/17 10:55 22:48 22:48 Creatine Kinase 76 CK-MB (CK-2) 0.75 Troponin I 0.125 0.087 03/26/17 03/26/17 03/26/17 04:26 04:26 10:48 Creatine Kinase 59 58 CK-MB (CK-2) 0.42 Troponin I 0.080 03/26/17 03/27/17 10:48 05:48 Creatine Kinase CK-MB (CK-2) 0.36 Troponin I 0.072 0.044 Impressions: Carotid Doppler Study 03/16/17 10:05 IMPRESSION: NO HEMODYNAMICALLY SIGNIFICANT STENOSIS. Head MRI 03/16/17 10:05 IMPRESSION: Large area of acute infarction in the left occipital lobe with a tiny area in the left parietal lobe. Underlying atrophy and microvascular ischemia. 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 Redemonstrated region of subacute ischemic change in the left occipital lobe compatible left OVERAGE SHORTAGE AND DAMAGE CLERK distribution infarction with mild effacement of the adjacent sulcal spaces and no significant midline shift, hemorrhage, or downward herniation This exam was performed according to our departmental dose-optimization program, which includes automated exposure control, adjustment of the mA and/or kV according to patient size and/or use of iterative reconstruction technique. Modified Barium Swallow 03/19/17 00:00 IMPRESSION: NO EVIDENCE OF PENETRATION OR ASPIRATION.PLEASE SEE SPEECH PATHOLOGIST REPORT FOR OTHER FINDINGS AND RECOMMENDATIONS. Chest X-Ray 03/19/17 03:29 IMPRESSION: 1. No acute pulmonary process identified. Qualifiers PATEINT BEING DISCHARGED WITH ANY OF THE FOLLOWING DIAGNOSIS?: Stroke Stroke Pt being discharged on Anti-thrombolytic therapy?: Yes Stroke Pt being discharged on Anti-coagulation therapy?: Yes Stroke Pt being discharged on Statins?: Yes HF Pt with Afib discharged with Warfarin?: Yes Plan Time Spent: Greater than 30 Minutes
[2017-04-01] MEDS: RISPERIDONE 1 MG TABLET PO PRN (15:15)
== END 2017-04-01 16:48 | DRG 64 ==
LOC: ER 19:10 → UNDOADMIN 22:43 → 3W 22:43 → EH 23:45 → 3W 03-16 02:40
PROVIDERS: ADMIT Internal Medicine; ATTEND Internal Medicine
DX: I63.532 Cerebral infarction due to unspecified occlusion or stenosis of left posterior cerebral artery (principal); I21.4 Non-ST elevation (NSTEMI) myocardial infarction; N39.0 Urinary tract infection, site not specified; N17.9 Acute kidney failure, unspecified; F05 Delirium due to known physiological condition; I48.0 Paroxysmal atrial fibrillation; Z66 Do not resuscitate; I10 Essential (primary) hypertension; I48.2 Chronic atrial fibrillation; I73.9 Peripheral vascular disease, unspecified; B96.20 Unspecified Escherichia coli [E. coli] as the cause of diseases classified elsewhere; K44.9 Diaphragmatic hernia without obstruction or gangrene; E78.00 Pure hypercholesterolemia, unspecified; R13.10 Dysphagia, unspecified; R00.1 Bradycardia, unspecified; H53.8 Other visual disturbances; F02.80 Dementia in other diseases classified elsewhere, unspecified severity, without behavioral disturbance, psychotic disturbance, mood disturbance, and anxiety; G30.9 Alzheimer's disease, unspecified; E86.0 Dehydration; D72.828 Other elevated white blood cell count; D64.9 Anemia, unspecified; I35.0 Nonrheumatic aortic (valve) stenosis; Z78.1 Physical restraint status; Z79.899 Other long term (current) drug therapy; Z79.82 Long term (current) use of aspirin; Z79.01 Long term (current) use of anticoagulants; Z90.710 Acquired absence of both cervix and uterus; Z60.2 Problems related to living alone; Z82.3 Family history of stroke; Z82.49 Family history of ischemic heart disease and other diseases of the circulatory system
CPT/HCPCS: 36415; 70450; 70551; 71045; 74230; 80048; 80053; 80061; 81001; 82272; 82550; 82553; 83735; 84484; 85025; 85027; 85610; 85730; 87040; 87086; 87088; 87186; 87493; 93005; 93010; 93306; 93880; 99285; G8978-GP; G8979-GP; G8987-GO; G8988-GO; G8996-GN; G8997-GN; G8998-GN; J0360; J1200; J1644; J2060; J3490; J7030

== ENCOUNTER 2018-04-26 20:15 | Emergency (ER) | payer MEDICARE, OTHER ==
[2018-04-26 20:25] VITALS: BP 155/76
--- NOTE | 2018-04-26 21:43 | RADIOLOGY REPORT (SQ) ---
EXAM DESCRIPTION: XR HAND 3 OR MORE VIEWS COMPLETED DATE/TIME: 04/26/2018 00:00 CLINICAL HISTORY: 82 years, Female, Fall-injury to hand wrist. Pt has Alzheimer's COMPARISON: None. NUMBER OF VIEWS: TECHNIQUE: LIMITATIONS: None. FINDINGS: No fracture or dislocation. There are degenerative changes involving the third metacarpophalangeal joint. There are degenerative changes involving the triscaphe joint. There is a metal karina distal ulna. IMPRESSION: No fracture or dislocation. Other findings as described. copyright 2010 [employer]- All Rights Reserved
--- NOTE | 2018-04-26 21:44 | RADIOLOGY REPORT (SQ) ---
EXAM DESCRIPTION: XR WRIST 3 OR MORE VIEWS COMPLETED DATE/TME: 04/26/2018 00:00 CLINICAL HISTORY: 82 years, Female, Fall-injury to hand wrist. Pt has Alzheimer's COMPARISON: None. NUMBER OF VIEWS: TECHNIQUE: LIMITATIONS: None. FINDINGS: No evidence of acute fracture or dislocation. There is a metallic karina within the distal ulna. There are degenerative changes involving the triscaphe joint. There are degenerative changes involving the third metacarpophalangeal joint. IMPRESSION: No fracture or dislocation. copyright 2010 [employer]- All Rights Reserved
--- NOTE | 2018-04-26 21:53 | ER Document Report ---
HPI - HPI Time Seen by Provider: 04/26/18 21:01 Pain Level: 3 Context: Patient is a very pleasant 82-year-old female who presents the emergency department with a chief complaint of left hand pain. This morning she woke up through her covers off and got tangled up in the covers and fell on top of her hand on the floor. She denies hitting her head, nausea, vomiting, abdominal pain, chest pain, shortness of breath, or any other symptoms at this time other than her left hand hurting. She states that it is hard for her to lift her thumb up, but she is able to. She is also noted some extra swelling. She is on Coumadin. - CONSTITUTIONAL Constitutional: DENIES: Fever, Chills - NEURO Neurology: DENIES: Headache - CARDIOVASCULAR Cardiovascular: DENIES: Chest pain - RESPIRATORY Respiratory: DENIES: Trouble Breathing, Coughing - GASTROINTESTINAL Gastrointestinal: DENIES: Abdominal Pain, Patient vomiting - URINARY Urinary: DENIES: Dysuria - REPRODUCTIVE Reproductive: DENIES: : - MUSCULOSKELETAL Musculoskeletal: REPORTS: Extremity pain - Left hand and wrist - DERM Skin Color: Ecchymosis - left hand and wrist Skin Problems: Bruise - left hand and wrist Past Medical History - Social History Smoking Status: Never Smoker Family History: CAD, CVA Patient has suicidal ideation: No Patient has homicidal ideation: No - Past Medical History Cardiac Medical History: Reports: Hx Hypercholesterolemia, Hx Hypertension, Hx Peripheral Vascular Disease - Prior carotid endarterectomy Denies: Hx Heart Attack, Hx Heart Murmur Pulmonary Medical History: Reports: Hx Pneumonia Denies: Hx Asthma Neurological Medical History: Reports: Hx Cerebrovascular Accident. Denies: Hx Seizures Renal/ Medical History: Denies: Hx Peritoneal Dialysis GI Medical History: Denies: Hx Hepatitis, Hx Hiatal Hernia, Hx Ulcer Infectious Medical History: Denies: Hx Hepatitis Past Surgical History: Reports: Hx Appendectomy, Hx Hysterectomy, Hx Tubal Ligation. Denies: Hx Mastectomy, Hx Open Heart Surgery, Hx Pacemaker - Immunizations Hx Diphtheria, Pertussis, Tetanus Vaccination: No Hx Pneumococcal Vaccination: 01/09/16 Vertical Provider Document - CONSTITUTIONAL Agree With Documented VS: Yes Exam Limitations: No Limitations General Appearance: No Apparent Distress - INFECTION CONTROL TRAVEL OUTSIDE OF THE [place] IN LAST 30 DAYS: No - HEENT HEENT: Atraumatic, Normocephalic - NECK Neck: Normal Inspection - RESPIRATORY Respiratory: Breath Sounds Normal, No Respiratory Distress - CARDIOVASCULAR Cardiovascular: Regular Rate Pulses: Normal: Radial - GI/ABDOMEN Gastrointestinal: Abdomen Soft, Abdomen Non-Tender - MUSCULOSKELETAL/EXTREMETIES Musculoskeletal/Extremeties: Tender - left hand and wrist; tenderness at anatomical snuff box area, Edema - mild edema to left hand - NEURO Level of Consciousness: Awake, Alert, Appropriate Motor/Sensory: No Motor Deficit, No Sensory Deficit - DERM Integumentary: Warm, Dry Course - Re-evaluation Re-evalutation: 04/26/18 21:59 Patient's x-rays are negative for an acute fracture. She does have pain at her anatomical snuffbox area. She will follow-up with orthopedics. Her daughter is at bedside and states she would like to see an orthopedic doctor in [place], because she lives in [place] Friday through Friday. I stated that she is free to see an orthopedic doctor of her choice. Will be provided a cockup splint. Verbal discharge instructions were given to the patient. They verbalized understanding. They are stable for discharge. - Vital Signs Vital signs: Temp Pulse Resp BP Pulse Ox 98.2 F 70 16 155/76 H 97 04/26/18 20:23 04/26/18 20:23 04/26/18 20:23 04/26/18 20:23 04/26/18 20:23 Discharge - Discharge Clinical Impression: Left wrist pain, Left hand pain Condition: Stable Disposition: HOME, SELF-CARE Additional Instructions: You were seen today in the emergency department for left hand pain. There is no fracture on x-ray, but since you have pain at your "anatomical snuffbox area,"please see an orthopedic of your choice to be evaluated. You may take Tylenol 1000 mg every 6 hours as needed for your pain. You have been provided a splint for comfort. If your symptoms get worse, please return to the emergency department. Referrals: CHARBEL CAMACHO MD [Primary Care Provider] - Follow up as needed
== END 2018-04-26 22:14 | disposition home or self-care (01) ==
LOC: ER 20:15
DX: M25.532 Pain in left wrist (principal); M79.642 Pain in left hand; I10 Essential (primary) hypertension
CPT/HCPCS: 99283; 73130; 73110; L3908

== ENCOUNTER 2018-07-16 09:38 | Emergency (ER) | payer MEDICARE, OTHER ==
--- NOTE | 2018-07-16 10:23 | RADIOLOGY REPORT (SQ) ---
EXAM DESCRIPTION: CHEST SINGLE VIEW COMPLETED DATE/TIME: 07/16/2018 10:08 am REASON FOR STUDY: Chest Pain COMPARISON: 01/14/2016 EXAM PARAMETERS: NUMBER OF VIEWS: One view. TECHNIQUE: Single frontal radiographic view of the chest acquired. RADIATION DOSE: NA LIMITATIONS: None. FINDINGS: LUNGS AND PLEURA: Stable age related chronic interstitial changes. No new airspace diseas e, pleural effusion or pneumothorax. Unchanged blunting of the right costophrenic angle, likely scar ring. Unchanged biapical scarring and pleural thickening. MEDIASTINUM AND HILAR STRUCTURES: No masses. Contour normal. HEART AND VASCULAR STRUCTURES: Ectatic atherosclerotic thoracic aorta. Normal heart size. BONES: Osteopenia. Degenerative changes at the shoulders with evidence of chronic rotator cuff loss. HARDWARE: None in the chest. OTHER: No other significant finding. IMPRESSION: Stable chronic changes without evidence of acute cardiopulmonary process. TECHNICAL DOCUMENTATION: JOB ID: [id number] [employer]- All Rights Reserved Reading location - IP/workstation name: [email or web address]
--- NOTE | 2018-07-16 10:26 | ER Document Report ---
ED Medical Screen (RME) - General Chief Complaint: Chest Pain Stated Complaint: CHEST PAIN Time Seen by Provider: 07/16/18 10:22 Primary Care Provider: CHARBEL CAMACHO MD [Primary Care Provider] - Follow up as needed Mode of Arrival: Wheelchair Information source: Patient, Relative Notes: Patient presents after developing midsternal chest pain that radiates to the neck and right shoulder that started around 9:00 this morning. Patient does complain of some shortness of breath as well. Patient denies any cough nausea or vomiting. Patient does have a history of Alzheimer's dementia although family member at bedside states that patient is at her normal mentation. 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 Patient does not drink thickened liquids at home but she does not like the texture. I have greeted and performed a rapid initial assessment of this patient. A comprehensive ED assessment and evaluation of the patient, analysis of test results and completion of the medical decision making process will be conducted by additional ED providers. TRAVEL OUTSIDE OF THE [place] IN LAST 30 DAYS: No - Related Data Allergies/Adverse Reactions: lisinopril Allergy (Verified 07/16/18 09:39) shellfish derived Allergy (Verified 07/16/18 09:39) Past Medical History - Social History Chew tobacco use (# tins/day): No Frequency of alcohol use: None Drug Abuse: None Family history: None - Past Medical History Cardiac Medical History: Reports: Hx Hypercholesterolemia, Hx Hypertension, Hx Peripheral Vascular Disease - Prior carotid endarterectomy Denies: Hx Heart Attack, Hx Heart Murmur Pulmonary Medical History: Reports: Hx Pneumonia Denies: Hx Asthma Neurological Medical History: Reports: Hx Cerebrovascular Accident. Denies: Hx Seizures Renal/ Medical History: Denies: Hx Peritoneal Dialysis GI Medical History: Denies: Hx Hepatitis, Hx Hiatal Hernia, Hx Ulcer Infectious Medical History: Denies: Hx Hepatitis Past Surgical History: Reports: Hx Appendectomy, Hx Hysterectomy, Hx Tubal Ligation. Denies: Hx Mastectomy, Hx Open Heart Surgery, Hx Pacemaker - Immunizations Hx Diphtheria, Pertussis, Tetanus Vaccination: No History of Influenza Vaccine for 12/2016 - 05/2017 Season: No Physical Exam - Vital signs Vitals: Temp Pulse Resp BP Pulse Ox 97.6 F 62 18 143/59 H 99 07/16/18 09:46 07/16/18 09:46 07/16/18 09:46 07/16/18 09:46 07/16/18 09:46 - Respiratory Respiratory status: No respiratory distress Breath sounds: Normal - Cardiovascular Rhythm: Regular Heart sounds: S1 appreciated, S2 appreciated Course - Vital Signs Vital signs: Temp Pulse Resp BP Pulse Ox 97.6 F 62 18 143/59 H 99 07/16/18 09:46 07/16/18 09:46 07/16/18 09:46 07/16/18 09:46 07/16/18 09:46 Doctor's Discharge - Discharge Referrals: CHARBEL CAMACHO MD [Primary Care Provider] - Follow up as needed
[2018-07-16 11:13] LABS: APPEARANCE,URINE SLIGHTLY-CLOUDY; BILIRUBIN,URINE NEGATIVE (NEGATIVE); COLOR,URINE YELLOW; GLUCOSE, URINE NEGATIVE (NEGATIVE); KETONES,URINE NEGATIVE (NEGATIVE); LEUKOCYTE ESTERASE,URINE SMALL (NEGATIVE); NITRITE,URINE NEGATIVE (NEGATIVE); PROTEIN,URINE NEGATIVE (NEGATIVE); URINE SPECIFIC GRAVITY 1.026; UROBILINOGEN,URINE NEGATIVE mg/dL (<2.0)
[2018-07-16 11:15] LABS: INTERNATIONAL RATION (INR) 1.92; PROTHROMBIN TIME 22.9 SEC (11.4-15.4)
[2018-07-16 11:20] LABS: ABSOLUTE BASOPHILS # (AUTO) 0.1 10^3/uL (0.0-0.2); ABSOLUTE EOSINOPHILS # (AUTO) 0.5 10^3/uL (0.0-0.6); ABSOLUTE LYMPHOCYTES (AUTO) 0.9 10^3/uL (0.5-4.7); ABSOLUTE MONOCYTES (AUTO) 0.6 10^3/uL (0.1-1.4); BASOPHILS % (AUTO) 0.9 % (0-2); EOSINOPHILS % (AUTO) 7.9 % (0-6); HEMATOCRIT 34.4 % (36.0-47.0); HEMOGLOBIN 11.2 g/dL (12.0-15.5); LYMPHOCYTES % (AUTO) 14.6 % (13-45); MEAN CORPUSCULAR HEMOGLOBIN 27.1 pg (27.0-33.4); MEAN CORPUSCULAR HGB CONC 32.5 g/dL (32.0-36.0); MEAN CORPUSCULAR VOLUME 83 fl (80-97); PLATELET COUNT 317 10^3/uL (150-450); RED BLOOD COUNT 4.12 10^6/uL (3.72-5.28); RED CELL DISTRIBUTION WIDTH 13.7 % (11.5-14.0); SEGMENTED NEUTROPHILS % (AUTO) 66.6 % (42-78); TOTAL CELLS COUNTED % (AUTO) 100 %
[2018-07-16 11:36] LABS: ALANINE AMINOTRANSFERASE 23 U/L (9-52); ALBUMIN 3.7 g/dL (3.5-5.0); ALKALINE PHOSPHATASE 89 U/L (38-126); ANION GAP 8 (5-19); ASPARTATE AMINO TRANSFERASE 27 U/L (14-36); BILIRUBIN,DIRECT 0.3 mg/dL (0.0-0.4); BILIRUBIN,TOTAL 0.5 mg/dL (0.2-1.3); BLOOD UREA NITROGEN 22 mg/dL (7-20); CARBON DIOXIDE 28 mmol/L (22-30); CHLORIDE 108 mmol/L (98-107); CREATINE KINASE 90 U/L (30-135); GLUCOSE 119 mg/dL (75-110); LIPASE 36.1 U/L (23-300); POTASSIUM 4.6 mmol/L (3.6-5.0); SODIUM 144.4 mmol/L (137-145); TOTAL PROTEIN 6.8 g/dL (6.3-8.2)
[2018-07-16 11:48] LABS: CREATINE KINASE MB 0.63 ng/mL (<4.55)
[2018-07-16 11:49] LABS: TROPONIN I < 0.012 ng/mL
--- NOTE | 2018-07-16 12:18 | ER Document Report ---
ED General - General Chief Complaint: Chest Pain Stated Complaint: CHEST PAIN Time Seen by Provider: 07/16/18 10:22 Primary Care Provider: CHARBEL CAMACHO MD [Primary Care Provider] - Follow up as needed Mode of Arrival: Wheelchair Notes: 82-year-old lady with a history of GERD dysphasia and intermittent chest pain presents with chest pain episode this morning at 9 AM in the car where she felt pressure go from her left to right chest become sharp and go to her right neck. It lasted about 5 minutes and her daughter says that she looked pale" during the headlights." The pain resolved in about 3 minutes and there was no shortness of breath or vomiting. She had similar episodes in the middle the night with her GERD and swallowing problems. She had a negative stress test at [facility] less than 2 years ago and her analytical tech Dr. Jackson with her family/daughter power of data communications software consultant have elected not to do a cath given her Alzheimer's. Currently asymptomatic. TRAVEL OUTSIDE OF THE [place] IN LAST 30 DAYS: No - Related Data Allergies/Adverse Reactions: lisinopril Allergy (Verified 07/16/18 09:39) shellfish derived Allergy (Verified 07/16/18 09:39) Past Medical History - General Information source: Patient, Relative - Social History Smoking Status: Never Smoker Chew tobacco use (# tins/day): No Frequency of alcohol use: None Drug Abuse: None Family History: CAD, CVA Patient has suicidal ideation: No Patient has homicidal ideation: No - Past Medical History Cardiac Medical History: Reports: Hx Hypercholesterolemia, Hx Hypertension, Hx Peripheral Vascular Disease - Prior carotid endarterectomy Denies: Hx Heart Attack, Hx Heart Murmur Pulmonary Medical History: Reports: Hx Pneumonia Denies: Hx Asthma Neurological Medical History: Reports: Hx Cerebrovascular Accident. Denies: Hx Seizures Renal/ Medical History: Denies: Hx Peritoneal Dialysis GI Medical History: Denies: Hx Hepatitis, Hx Hiatal Hernia, Hx Ulcer Infectious Medical History: Denies: Hx Hepatitis Past Surgical History: Reports: Hx Appendectomy, Hx Hysterectomy, Hx Tubal Ligation. Denies: Hx Mastectomy, Hx Open Heart Surgery, Hx Pacemaker - Immunizations Hx Diphtheria, Pertussis, Tetanus Vaccination: No Hx Pneumococcal Vaccination: 01/09/16 Review of Systems - Review of Systems Notes: REVIEW OF SYSTEMS GEN: Denies fever, chills, weight loss ENT: Denies sore throat, nasal discharge, ear pain EYES: Denies blurry vision, eye pain, discharge CV: Chest pain RESP: Denies cough, shortness of breath, wheezing GI: Denies abdominal pain, nausea, vomiting, diarrhea MSK: Denies joint pain/swelling, edema, SKIN: Denies rash, skin lesions LYMPH: Denies swollen glands/lymph nodes NEURO: Denies headache, focal weakness or numbness, dizziness PSYCH: Denies depression, suicidal or homicidal ideation PHYSICAL EXAMINATION General: No acute distress, well-nourished Head: Atraumatic, normocephalic ENT: Mouth normal, oropharynx moist, no exudates or tonsillar enlargement Eyes: Conjunctiva normal, pupils equal, lids normal Neck: No JVD, supple, no guarding CVS: Normal rate, regular rhythm, no murmurs Resp: No resp distress, equal and normal breath sounds bilaterally GI: Nondistended, soft, no tenderness to palpation, no rebound or guarding Ext: No deformities, no edema, normal range of motion in upper and lower ext Back: No CVA or midline TTP Skin: No rash, warm Lymphatic: No lymphadeopathy noted Neuro: Awake, alert. Face symmetric. GCS 15. Physical Exam - Vital signs Vitals: Temp Pulse Resp BP Pulse Ox 97.6 F 62 18 143/59 H 99 07/16/18 09:46 07/16/18 09:46 07/16/18 09:46 07/16/18 09:46 07/16/18 09:46 Course - Re-evaluation Re-evalutation: Really female with chest pain which has both typical and atypical features, has had a negative stress test recently and not within her goals of care to be admitted for cath per her daughter/D POA. Could have been esophageal spasm or other non-cardiac cause of chest pain, no suspicion for esophageal rupture given her physical exam, and is unlikely going to be dissection or PE given her story. Her initial troponin was drawn about an hour after so we will repeat it now which will be a 3-hour troponin if negative she will be discharged this is what they would like to think this is very reasonable. She will follow-up with her analytical tech Dr. Jackson. I have discussed with the patient there likely diagnosis, aftercare plan, follow-up plans and my usual and customary return precautions. They verbalized understanding of this. 07/16/18 13:29 After discussing with patient, her daughter does not want to wait for a second troponin. I explained that this does not fully rule out acute coronary syndrome, they would like to leave now to get to an appointment will be seen at 3:00. She accepts the risk, however small, of ongoing ischemic event. He will be discharged home in stable condition. - Vital Signs Vital signs: Temp Pulse Resp BP Pulse Ox 97.6 F 96 18 165/68 H 99 07/16/18 09:46 07/16/18 12:56 07/16/18 12:56 07/16/18 12:56 07/16/18 09:46 - Laboratory Result Diagrams: 07/16/18 10:40 07/16/18 10:40 Laboratory results interpreted by me: 07/16/18 07/16/18 07/16/18 10:40 10:40 10:40 Hgb 11.2 L Hct 34.4 L Eosinophils % 7.9 H PT 22.9 H Chloride 108 H BUN 22 H Est GFR (Non-Af Amer) 55 L Glucose 119 H Ur Leukocyte Esterase 07/16/18 10:50 Hgb Hct Eosinophils % PT Chloride BUN Est GFR (Non-Af Amer) Glucose Ur Leukocyte Esterase SMALL H - Diagnostic Test Radiology reviewed: Image reviewed, Reports reviewed - EKG Interpretation by Me EKG shows normal: Sinus rhythm Rate: Normal Rhythm: NSR Discharge - Discharge Clinical Impression: Chest pain, unspecified Condition: Good Disposition: HOME, SELF-CARE Instructions: Chest Pain of Unclear Cause ([facility]) Additional Instructions: Please call Dr. Jackson's office to let them know about this episode of chest pain. You and your power of data communications software consultant elected not to be admitted, but I think this is a reasonable choice. Referrals: CHARBEL CAMACHO MD [Primary Care Provider] - Follow up as needed
[2018-07-16 12:58] VITALS: BP 165/68
--- NOTE | 2018-07-16 19:38 | EKG REPORT ---
SEVERITY:- ABNORMAL ECG - SINUS RHYTHM LEFT VENTRICULAR HYPERTROPHY : Confirmed by: Tamiko Gama MD 16-Jul-2018 19:38:21
== END 2018-07-16 12:56 | disposition home or self-care (01) ==
LOC: ER 09:38
DX: R07.89 Other chest pain (principal); G30.9 Alzheimer's disease, unspecified; F02.80 Dementia in other diseases classified elsewhere, unspecified severity, without behavioral disturbance, psychotic disturbance, mood disturbance, and anxiety; I10 Essential (primary) hypertension; Z88.8 Allergy status to other drugs, medicaments and biological substances; Z91.013 Allergy to seafood
CPT/HCPCS: 36415; 71045; 80053; 81001; 82550; 82553; 83690; 84484; 85025; 85610; 93005; 93010; 99285

== ENCOUNTER 2018-08-01 21:16 | Emergency (ER) | payer MEDICARE, OTHER ==
[2018-08-01 21:29] VITALS: BP 152/63
== END 2018-08-01 21:25 | disposition left against medical advice (07) ==
LOC: ER 21:16
DX: Z53.21 Procedure and treatment not carried out due to patient leaving prior to being seen by health care provider (principal); R06.02 Shortness of breath